=== PATIENT | male | born 1980 | race African-American/Black ===

== ENCOUNTER 2018-05-12 19:00 | Inpatient (IN) ==
[2018-05-12] MEDS ORDERED: HYDROmorphone 2 MG/1 ML VIAL IV ONE (20:44)
[2018-05-12] MEDS ORDERED: PROMETHAZINE 25 MG/1 ML VIAL IM PRN (20:48)
[2018-05-12] MEDS ORDERED: ZALEPLON 5 MG CAPSULE PO PRN (20:48)
[2018-05-12] MEDS ORDERED: FAMOTIDINE 20 MG TABLET PO SCH (21:00)
[2018-05-12] MEDS: CARVEDILOL 25 MG TABLET PO SCH (21:23)
[2018-05-12] MEDS: MINOXIDIL 2.5 MG TABLET PO SCH (21:23)
[2018-05-12] MEDS: FAMOTIDINE 20 MG TABLET PO SCH (21:23)
[2018-05-12] MEDS: ENOXAPARIN 30 MG/0.3 ML SYRINGE SUBCUT SCH (21:23)
[2018-05-12 21:27] LABS: Eosinophils # 0.2 10*3/uL (0.0-0.87); Eosinophils % 4.8 % (0.00-10.9); Hematocrit 40.2 VOL% (42.0-52.0); Hemoglobin 12.4 GM/DL (14.0-18.0); Immature Granulocytes % 0.3 %; Immature Granulocytes Absolute 0.01 #; Lymphocytes # 1.8 10*3/uL (1.4-4.0); Lymphocytes % 45.1 % (21.2-54.2); Mean Corpuscular HGB Conc 30.8 GM/DL (32-36); Mean Corpuscular Hemoglobin 26 PG (27-34); Mean Corpuscular Volume 84.3 FL (87-102); Mean Platelet Volume 11.6 FL (9.6-12.0); Monocytes # 0.4 10*3/uL (0.11-0.8); Monocytes % 9.8 % (1.7-12.7); Neutrophils # 1.6 10*3/uL (1.4-7.4); Platelet Count 94 T/CUMM (130-400); Red Blood Count 4.77 MC/CUMM (3.8-5.5); Red Cell Distribution Width 17.2 % (9.3-17.3)
[2018-05-12 21:42] LABS: Calcium 8.1 MG/DL (8.5-10.1); Osmolality,Calculated 282.5 MOS/KG (273-304); Potassium 4.6 MMOL/L (3.5-5.1)
[2018-05-12 21:53] LABS: INR 1.2; PT Patient Result 12.1 SECS; Partial Thromboplastin Time 28.3 SECS (0-40)
[2018-05-12] MEDS ORDERED: diphenhydrAMINE 50 MG/1 ML VIAL ONE (23:10)
[2018-05-12] MEDS: diphenhydrAMINE 50 MG/1 ML VIAL IV PRN (23:10)
[2018-05-12 23:28] LABS: Band Neutrophils 1 % (0-10); Eosinophils 5 % (0-10); Lymphocytes 49 % (20-55); Platelet Estimate Decreased; Segmented Neutrophils 42 % (50-85); Total Cells Counted 100
[2018-05-13] MEDS: MORPHINE 4 MG/1 ML VIAL IV PRN ×4 (02:12→23:37)
[2018-05-13] MEDS ORDERED: HYDROmorphone 2 MG/1 ML VIAL IV ONE (06:53)
[2018-05-13] MEDS: CARVEDILOL 25 MG TABLET PO SCH ×2 (08:41→20:08)
[2018-05-13] MEDS: MINOXIDIL 2.5 MG TABLET PO SCH ×2 (08:41→20:08)
[2018-05-13] MEDS: diphenhydrAMINE 50 MG/1 ML VIAL IV PRN ×2 (09:29→15:21)
[2018-05-13] MEDS: hydrALAZINE 20 MG/1 ML VIAL IV PRN ×2 (16:31→23:39)
[2018-05-13 17:11] LABS: Lymphocytes,Pleural Fluid 33 %; Monocytes,Pleural Fluid 2 %
[2018-05-13 17:13] LABS: RBC,Pleural Fluid 4994 T/CUMM
[2018-05-13] MEDS: ENOXAPARIN 30 MG/0.3 ML SYRINGE SUBCUT SCH ×2 (20:07→20:10)
[2018-05-13] MEDS: FAMOTIDINE 20 MG TABLET PO SCH (20:08)
[2018-05-14] MEDS: MORPHINE 4 MG/1 ML VIAL IV PRN ×4 (04:47→22:06)
[2018-05-14 06:16] LABS: Basophils # 0.1 10*3/uL (0.0-0.2); Basophils % 1.1 % (0.0-0.8); Eosinophils # 0.3 10*3/uL (0.0-0.87); Eosinophils % 5.8 % (0.00-10.9); Hematocrit 35.3 VOL% (42.0-52.0); Immature Granulocytes % 0.2 %; Immature Granulocytes Absolute 0.01 #; Lymphocytes # 1.2 10*3/uL (1.4-4.0); Lymphocytes % 26.3 % (21.2-54.2); Mean Corpuscular HGB Conc 31.2 GM/DL (32-36); Mean Corpuscular Hemoglobin 26 PG (27-34); Mean Corpuscular Volume 83.1 FL (87-102); Mean Platelet Volume 10.8 FL (9.6-12.0); Monocytes # 0.7 10*3/uL (0.11-0.8); Monocytes % 15.6 % (1.7-12.7); Neutrophils # 2.4 10*3/uL (1.4-7.4); Red Blood Count 4.25 MC/CUMM (3.8-5.5); Red Cell Distribution Width 17.2 % (9.3-17.3); White Blood Count 4.6 T/CUMM (4-12)
[2018-05-14 06:17] LABS: Platelet Count 85 T/CUMM (130-400)
[2018-05-14 06:44] LABS: Calcium 8.2 MG/DL (8.5-10.1); Osmolality,Calculated 283.5 MOS/KG (273-304); Potassium 4.4 MMOL/L (3.5-5.1)
[2018-05-14 06:45] LABS: Anisocytosis 1+; Band Neutrophils 3 % (0-10); Eosinophils 7 % (0-10); Lymphocytes 26 % (20-55); Platelet Estimate Decreased; Segmented Neutrophils 51 % (50-85); Total Cells Counted 100
[2018-05-14] MEDS: CARVEDILOL 25 MG TABLET PO SCH ×2 (09:00→22:06)
[2018-05-14] MEDS: MINOXIDIL 2.5 MG TABLET PO SCH ×2 (09:00→22:06)
[2018-05-14 14:14] LABS: Total Protein,Body Fluid 3.3 G/DL
[2018-05-14] MEDS: FAMOTIDINE 20 MG/2 ML VIAL IV SCH (16:20)
[2018-05-15] MEDS: MORPHINE 4 MG/1 ML VIAL IV PRN ×3 (04:09→22:23)
[2018-05-15 06:43] LABS: Albumin 2.9 G/DL (3.4-5.0); Bilirubin,Direct 0.21 MG/DL (0.0-0.20); Bilirubin,Indirect 0.5 MG/DL (0.0-1.0); Bilirubin,Total 0.7 MG/DL (0.2-1.0); Total Protein 6.2 G/DL (6.4-8.3)
[2018-05-15] MEDS: MINOXIDIL 2.5 MG TABLET PO SCH ×2 (08:20→20:51)
[2018-05-15] MEDS: CARVEDILOL 25 MG TABLET PO SCH ×2 (08:20→20:51)
[2018-05-15] MEDS: FAMOTIDINE 20 MG/2 ML VIAL IV SCH (08:20)
[2018-05-15] MEDS ORDERED: NITROGLYCERIN SL 0.4 MG TABLET SL PRN (08:37)
[2018-05-15] MEDS: ASPIRIN EC 81 MG TABLET PO SCH (08:47)
[2018-05-15 08:58] LABS: Risk Ratio 3.09; VLDL CHOLESTEROL 16.2 MG/DL
[2018-05-15] MEDS ORDERED: PROPOFOL 200 MG/20 ML VIAL IV ONE (09:00)
[2018-05-15] MEDS ORDERED: LIDOCAINE 100 MG/5 ML SYRINGE ONE (09:00)
[2018-05-15] MEDS: FLUCONAZOLE 100 MG TABLET PO SCH (16:55)
[2018-05-16] MEDS: MORPHINE 4 MG/1 ML VIAL IV PRN ×2 (02:14→09:11)
[2018-05-16 06:50] LABS: Eosinophils # 0.3 10*3/uL (0.0-0.87); Eosinophils % 6.9 % (0.00-10.9); Hematocrit 31.8 VOL% (42.0-52.0); Hemoglobin 10.1 GM/DL (14.0-18.0); Immature Granulocytes % 0.3 %; Immature Granulocytes Absolute 0.01 #; Lymphocytes % 25.9 % (21.2-54.2); Mean Corpuscular HGB Conc 31.8 GM/DL (32-36); Mean Corpuscular Hemoglobin 26 PG (27-34); Mean Corpuscular Volume 82.2 FL (87-102); Mean Platelet Volume 10.8 FL (9.6-12.0); Monocytes # 0.6 10*3/uL (0.11-0.8); Monocytes % 15.4 % (1.7-12.7); Neutrophils % 50.5 % (38.7-73.9); Red Blood Count 3.87 MC/CUMM (3.8-5.5); Red Cell Distribution Width 16.8 % (9.3-17.3); White Blood Count 3.9 T/CUMM (4-12)
[2018-05-16 06:54] LABS: Platelet Count 88 T/CUMM (130-400)
[2018-05-16 07:12] LABS: Calcium 8.1 MG/DL (8.5-10.1); Osmolality,Calculated 285.5 MOS/KG (273-304); Potassium 4.7 MMOL/L (3.5-5.1)
[2018-05-16] MEDS ORDERED: BISACODYL 5 MG TABLET PO ONE (07:34)
[2018-05-16] MEDS ORDERED: LACTULOSE 20 GM/30 ML UDCUP PO ONE (07:34)
[2018-05-16 07:46] LABS: Hypochromasia 1+; Ovalocytes Slight; Platelet Estimate Decreased
[2018-05-16] MEDS: ASPIRIN EC 81 MG TABLET PO SCH (08:33)
[2018-05-16] MEDS: CARVEDILOL 25 MG TABLET PO SCH (08:33)
[2018-05-16] MEDS: MINOXIDIL 2.5 MG TABLET PO SCH (08:33)
[2018-05-16] MEDS: FLUCONAZOLE 100 MG TABLET PO SCH (08:33)
[2018-05-16] MEDS: FAMOTIDINE 20 MG/2 ML VIAL IV SCH (08:36)
[2018-05-16] MEDS ORDERED: DOCUSATE SODIUM 100 MG CAPSULE PO SCH (09:00)
[2018-05-16 12:51] VITALS: BP 150/94
== END 2018-05-16 12:48 | disposition home health service (06) | DRG 291 ==
LOC: SUATTDRO 19:57 → N.ICU 19:57 → N.5E 05-14 02:12
PROVIDERS: ADMIT Internal Medicine Nephrology; ATTEND Internal Medicine

== ENCOUNTER 2019-04-20 00:57 | Observation (INO) ==
[2019-04-20] MEDS ORDERED: MORPHINE 4 MG/1 ML VIAL IV STA (01:37)
[2019-04-20 01:45] LABS: Basophils % 0.9 % (0.0-0.8); Eosinophils # 0.1 10*3/uL (0.0-0.87); Eosinophils % 1.9 % (0.00-10.9); Hematocrit 33.3 VOL% (42.0-52.0); Hemoglobin 10.1 GM/DL (14.0-18.0); Immature Granulocytes % 0.2 %; Immature Granulocytes Absolute 0.01 #; Lymphocytes # 1.4 10*3/uL (1.4-4.0); Lymphocytes % 33.6 % (21.2-54.2); Mean Corpuscular HGB Conc 30.3 GM/DL (32-36); Mean Corpuscular Volume 87.4 FL (87-102); Mean Platelet Volume 9.6 FL (9.6-12.0); Monocytes % 14.2 % (1.7-12.7); Neutrophils % 49.2 % (38.7-73.9); Platelet Count 115 T/CUMM (130-400); Red Blood Count 3.81 MC/CUMM (3.8-5.5); Red Cell Distribution Width 19.2 % (9.3-17.3); White Blood Count 4.2 T/CUMM (4-12)
[2019-04-20 02:04] LABS: Albumin 3.3 G/DL (3.4-5.0); Bilirubin,Total 0.6 MG/DL (0.2-1.0); Calcium 8.3 MG/DL (8.5-10.1); Osmolality,Calculated 278.7 MOS/KG (273-304); Total Protein 7.2 G/DL (6.4-8.3)
[2019-04-20] MEDS ORDERED: hydrALAZINE 20 MG/1 ML VIAL IV STA (02:50)
[2019-04-20] MEDS ORDERED: ONDANSETRON 4 MG/2 ML VIAL ONE (03:02)
[2019-04-20] MEDS ORDERED: PROMETHAZINE 25 MG/1 ML VIAL IM STA (03:04)
[2019-04-20] MEDS ORDERED: DOCUSATE SODIUM 100 MG CAPSULE PO PRN (05:38)
[2019-04-20] MEDS: NITROGLYCERIN SL 0.4 MG TABLET SL PRN ×3 (06:18→06:35)
[2019-04-20] MEDS: HEPARIN 5,000 UNIT/1 ML VIAL SUBCUT SCH ×2 (06:20→14:13)
[2019-04-20] MEDS: MORPHINE 4 MG/1 ML VIAL IV PRN ×3 (06:43→21:09)
[2019-04-20] MEDS: ASPIRIN EC 81 MG TABLET PO SCH (08:47)
[2019-04-20] MEDS: ISOSORBIDE MONONITRATE 30 MG TABLET PO SCH (08:47)
[2019-04-20] MEDS: CARVEDILOL 25 MG TABLET PO SCH ×2 (08:47→22:35)
[2019-04-20] MEDS: PROMETHAZINE 25 MG/1 ML VIAL IM PRN (21:10)
[2019-04-20] MEDS: ROSUVASTATIN 10 MG TABLET PO SCH (22:36)
[2019-04-21] MEDS: HEPARIN 5,000 UNIT/1 ML VIAL SUBCUT SCH ×4 (01:18→21:24)
[2019-04-21 03:52] LABS: Eosinophils # 0.1 10*3/uL (0.0-0.87); Eosinophils % 3.3 % (0.00-10.9); Hemoglobin 10.5 GM/DL (14.0-18.0); Immature Granulocytes % 0.2 %; Immature Granulocytes Absolute 0.01 #; Lymphocytes # 1.3 10*3/uL (1.4-4.0); Lymphocytes % 30.5 % (21.2-54.2); Mean Corpuscular HGB Conc 30.9 GM/DL (32-36); Mean Corpuscular Volume 87.2 FL (87-102); Mean Platelet Volume 10.2 FL (9.6-12.0); Monocytes % 17.9 % (1.7-12.7); Neutrophils % 47.1 % (38.7-73.9); Platelet Count 129 T/CUMM (130-400); Red Cell Distribution Width 19.2 % (9.3-17.3); White Blood Count 4.2 T/CUMM (4-12)
[2019-04-21 04:19] LABS: Calcium 7.7 MG/DL (8.5-10.1); Osmolality,Calculated 283.5 MOS/KG (273-304); Risk Ratio 4.09; VLDL CHOLESTEROL 27.4 MG/DL
[2019-04-21 04:33] LABS: Band Neutrophils 1 % (0-10); Eosinophils 5 % (0-10); Lymphocytes 27 % (20-55); Platelet Estimate Decreased; Segmented Neutrophils 51 % (50-85); Total Cells Counted 100
[2019-04-21] MEDS: ASPIRIN EC 81 MG TABLET PO SCH (08:06)
[2019-04-21] MEDS: CARVEDILOL 25 MG TABLET PO SCH ×2 (08:06→20:25)
[2019-04-21] MEDS: ISOSORBIDE MONONITRATE 30 MG TABLET PO SCH (08:06)
[2019-04-21] MEDS: MORPHINE 4 MG/1 ML VIAL IV PRN ×2 (11:33→20:24)
[2019-04-21] MEDS: ROSUVASTATIN 10 MG TABLET PO SCH (20:25)
[2019-04-21] MEDS: PROMETHAZINE 25 MG/1 ML VIAL IM PRN (22:56)
[2019-04-22] MEDS ORDERED: SODIUM CHLORIDE 0.9% 250 ML IV SCH (08:00)
[2019-04-22] MEDS: HEPARIN 5,000 UNIT/1 ML VIAL SUBCUT SCH ×3 (08:40→21:10)
[2019-04-22] MEDS: ASPIRIN EC 81 MG TABLET PO SCH (13:20)
[2019-04-22] MEDS: ISOSORBIDE MONONITRATE 30 MG TABLET PO SCH (13:20)
[2019-04-22] MEDS: CARVEDILOL 25 MG TABLET PO SCH ×2 (13:20→21:10)
[2019-04-22] MEDS ORDERED: FAMOTIDINE 20 MG TABLET PO SCH (16:00)
[2019-04-22] MEDS: MORPHINE 4 MG/1 ML VIAL IV PRN (18:42)
[2019-04-22] MEDS: PROMETHAZINE 25 MG/1 ML VIAL IM PRN (19:54)
[2019-04-22] MEDS: ROSUVASTATIN 10 MG TABLET PO SCH (21:10)
[2019-04-22] MEDS ORDERED: CLORAZEPATE 3.75 MG TABLET PO ONE (22:00)
[2019-04-22] MEDS ORDERED: diphenhydrAMINE CAP 25 MG CAPSULE PO PRN (23:02)
[2019-04-23] MEDS: HEPARIN 5,000 UNIT/1 ML VIAL SUBCUT SCH ×2 (05:14→14:29)
[2019-04-23 05:30] LABS: Basophils % 0.9 % (0.0-0.8); Eosinophils # 0.2 10*3/uL (0.0-0.87); Eosinophils % 4.5 % (0.00-10.9); Hematocrit 33.8 VOL% (42.0-52.0); Hemoglobin 10.2 GM/DL (14.0-18.0); Immature Granulocytes % 0.3 %; Immature Granulocytes Absolute 0.01 #; Lymphocytes # 1.1 10*3/uL (1.4-4.0); Lymphocytes % 34.3 % (21.2-54.2); Mean Corpuscular HGB Conc 30.2 GM/DL (32-36); Mean Corpuscular Volume 87.6 FL (87-102); Mean Platelet Volume 9.7 FL (9.6-12.0); Platelet Count 119 T/CUMM (130-400); Red Blood Count 3.86 MC/CUMM (3.8-5.5); Red Cell Distribution Width 18.6 % (9.3-17.3); White Blood Count 3.3 T/CUMM (4-12)
[2019-04-23 05:59] LABS: Calcium 8.1 MG/DL (8.5-10.1); Osmolality,Calculated 284.4 MOS/KG (273-304)
[2019-04-23 06:03] LABS: Band Neutrophils 3 % (0-10); Eosinophils 8 % (0-10); Lymphocytes 21 % (20-55); Platelet Estimate Adequate; Segmented Neutrophils 54 % (50-85); Total Cells Counted 100
[2019-04-23 06:04] LABS: Anisocytosis 1+; Macrocytosis Slight; Smudge Cells Few
[2019-04-23] MEDS ORDERED: FAMOTIDINE 20 MG TABLET PO SCH (09:00)
[2019-04-23] MEDS: ISOSORBIDE MONONITRATE 30 MG TABLET PO SCH (13:32)
[2019-04-23] MEDS: CARVEDILOL 25 MG TABLET PO SCH (13:32)
[2019-04-23] MEDS: ASPIRIN EC 81 MG TABLET PO SCH (13:33)
[2019-04-23 15:42] VITALS: BP 124/78
== END 2019-04-23 16:16 | disposition home or self-care (01) ==
LOC: EDUNIT# → EDBD → N.EDINP 00:57 → N.ED 00:57 → SUATTDRO 04:11 → N.TELEN 05:00
PROVIDERS: ADMIT Internal Medicine Nephrology; ATTEND Internal Medicine

== ENCOUNTER 2019-05-10 11:02 | Inpatient (IN) ==
[2019-05-10] MEDS ORDERED: ASPIRIN 325 MG TABLET PO STA (11:28)
[2019-05-10 11:58] LABS: Basophils # 0.1 10*3/uL (0.0-0.2); Basophils % 1.6 % (0.0-0.8); Eosinophils # 0.2 10*3/uL (0.0-0.87); Eosinophils % 4.7 % (0.00-10.9); Hematocrit 40.9 VOL% (42.0-52.0); Hemoglobin 12.5 GM/DL (14.0-18.0); Immature Granulocytes % 0.2 %; Immature Granulocytes Absolute 0.01 #; Lymphocytes # 1.5 10*3/uL (1.4-4.0); Lymphocytes % 34.2 % (21.2-54.2); Mean Corpuscular HGB Conc 30.6 GM/DL (32-36); Mean Corpuscular Volume 86.3 FL (87-102); Mean Platelet Volume 10.1 FL (9.6-12.0); Monocytes % 11.5 % (1.7-12.7); Neutrophils % 47.8 % (38.7-73.9); Platelet Count 128 T/CUMM (130-400); Red Blood Count 4.74 MC/CUMM (3.8-5.5); Red Cell Distribution Width 18.5 % (9.3-17.3); White Blood Count 4.3 T/CUMM (4-12)
[2019-05-10 12:05] LABS: Calcium 8.9 MG/DL (8.5-10.1); Osmolality,Calculated 282.5 MOS/KG (273-304)
[2019-05-10] MEDS: NITROGLYCERIN SL 0.4 MG TABLET SL PRN (12:17)
[2019-05-10] MEDS ORDERED: MORPHINE 4 MG/1 ML VIAL IV STA (12:34)
[2019-05-10] MEDS: ENOXAPARIN 30 MG/0.3 ML SYRINGE SUBCUT SCH (14:48)
[2019-05-10] MEDS: MORPHINE 4 MG/1 ML VIAL IV PRN ×2 (14:57→21:05)
[2019-05-10] MEDS: CARVEDILOL 25 MG TABLET PO SCH (21:04)
[2019-05-10] MEDS: ROSUVASTATIN 10 MG TABLET PO SCH (21:04)
[2019-05-10] MEDS: CALCIUM CARBONATE CHEW 500 MG TABLET PO SCH (21:05)
[2019-05-10] MEDS ORDERED: PROMETHAZINE 25 MG TABLET PO PRN (22:42)
[2019-05-11] MEDS: MORPHINE 4 MG/1 ML VIAL IV PRN ×4 (04:15→19:23)
[2019-05-11 04:51] LABS: Basophils # 0.1 10*3/uL (0.0-0.2); Basophils % 1.7 % (0.0-0.8); Eosinophils # 0.2 10*3/uL (0.0-0.87); Eosinophils % 3.6 % (0.00-10.9); Hematocrit 33.4 VOL% (42.0-52.0); Immature Granulocytes % 0.5 %; Immature Granulocytes Absolute 0.02 #; Lymphocytes # 1.4 10*3/uL (1.4-4.0); Mean Corpuscular HGB Conc 29.9 GM/DL (32-36); Mean Corpuscular Volume 87.2 FL (87-102); Mean Platelet Volume 9.8 FL (9.6-12.0); Monocytes % 17.7 % (1.7-12.7); Neutrophils % 43.5 % (38.7-73.9); Platelet Count 104 T/CUMM (130-400); Red Blood Count 3.83 MC/CUMM (3.8-5.5); Red Cell Distribution Width 18.3 % (9.3-17.3); White Blood Count 4.1 T/CUMM (4-12)
[2019-05-11 05:15] LABS: Eosinophils 7 % (0-10); Hypochromasia 1+; Lymphocytes 43 % (20-55); Ovalocytes Slight; Platelet Estimate Decreased; Segmented Neutrophils 39 % (50-85); Total Cells Counted 100
[2019-05-11 05:22] LABS: Calcium 8.9 MG/DL (8.5-10.1); Osmolality,Calculated 287.4 MOS/KG (273-304)
[2019-05-11] MEDS ORDERED: REGADENOSON 0.4 MG/5 ML SYRINGE IV ONE (08:17)
[2019-05-11] MEDS: NITROGLYCERIN SL 0.4 MG TABLET SL PRN (09:15)
[2019-05-11 10:46] LABS: Lymphocytes,Pleural Fluid 95 %; Monocytes,Pleural Fluid 4 %; Neutrophils,Pleural Fluid 1 %; RBC,Pleural Fluid 20368 T/CUMM
[2019-05-11 10:57] LABS: Total Protein,Pleural Fluid 4.2 G/DL
[2019-05-11 11:00] LABS: Hepatitis B Core IgM Quant 0.06 Index; Hepatitis B Surface Ag Quant < 0.10 Index; Hepatitis B Surface Ag Result Negative (Negative); Hepatitis C Virus Ab Quant < 0.02 Index; Hepatitis C Virus Ab Result Negative (Negative)
[2019-05-11 11:59] LABS: Troponin I 0.888 NG/ML (0.00-0.045)
[2019-05-11] MEDS ORDERED: VANCOMYCIN 500 MG VIAL IRRIG ONE (13:08)
[2019-05-11] MEDS ORDERED: VANCOMYCIN INJ 1,000 MG in SODIUM CHLORIDE 0.9% 250 ML IV ONE (13:08)
[2019-05-11] MEDS: MULTIVITAMIN (BEROCCA) TABLET PO SCH (13:19)
[2019-05-11] MEDS: CARVEDILOL 25 MG TABLET PO SCH ×2 (13:19→21:01)
[2019-05-11] MEDS: ENOXAPARIN 30 MG/0.3 ML SYRINGE SUBCUT SCH (13:19)
[2019-05-11] MEDS: ASPIRIN EC 81 MG TABLET PO SCH (13:19)
[2019-05-11] MEDS: ISOSORBIDE MONONITRATE 30 MG TABLET PO SCH (13:19)
[2019-05-11 14:51] LABS: Troponin I 0.943 NG/ML (0.00-0.045)
[2019-05-11 17:18] LABS: Troponin I 0.817 NG/ML (0.00-0.045)
[2019-05-11] MEDS: ROSUVASTATIN 10 MG TABLET PO SCH (21:01)
[2019-05-12] MEDS: MORPHINE 4 MG/1 ML VIAL IV PRN ×3 (02:00→20:55)
[2019-05-12] MEDS: CALCIUM CARBONATE CHEW 500 MG TABLET PO SCH ×2 (02:19→20:48)
[2019-05-12 06:07] LABS: Basophils % 1.2 % (0.0-0.8); Eosinophils # 0.1 10*3/uL (0.0-0.87); Eosinophils % 2.9 % (0.00-10.9); Hematocrit 31.4 VOL% (42.0-52.0); Hemoglobin 9.5 GM/DL (14.0-18.0); Immature Granulocytes % 0.3 %; Immature Granulocytes Absolute 0.01 #; Lymphocytes # 1.2 10*3/uL (1.4-4.0); Lymphocytes % 34.6 % (21.2-54.2); Mean Corpuscular HGB Conc 30.3 GM/DL (32-36); Mean Platelet Volume 9.6 FL (9.6-12.0); Monocytes % 11.8 % (1.7-12.7); Neutrophils % 49.2 % (38.7-73.9); Platelet Count 91 T/CUMM (130-400); Red Blood Count 3.61 MC/CUMM (3.8-5.5); Red Cell Distribution Width 18.5 % (9.3-17.3); White Blood Count 3.5 T/CUMM (4-12)
[2019-05-12 06:36] LABS: Hypochromasia 1+; Ovalocytes Slight; Platelet Estimate Decreased
[2019-05-12 06:41] LABS: Calcium 7.8 MG/DL (8.5-10.1); Osmolality,Calculated 292.3 MOS/KG (273-304)
[2019-05-12] MEDS ORDERED: VANCOMYCIN 500 MG VIAL ONE (07:13)
[2019-05-12] MEDS ORDERED: LIDOCAINE 1% 20 ML VIAL ONE (07:13)
[2019-05-12] MEDS ORDERED: HEPARIN/NACL 0.9% 2 UNITS/ML 500 ML IV ONE (07:13)
[2019-05-12] MEDS ORDERED: FAMOTIDINE 20 MG/2 ML VIAL IV ONE ×2 (07:15→07:17)
[2019-05-12] MEDS ORDERED: diphenhydrAMINE 50 MG/1 ML VIAL ONE ×2 (07:15→10:20)
[2019-05-12] MEDS ORDERED: diphenhydrAMINE 50 MG/1 ML VIAL IV ONE (07:15)
[2019-05-12] MEDS ORDERED: methylPREDNISolone SOD SUC 125 MG/2 ML VIAL IV ONE (07:15)
[2019-05-12] MEDS ORDERED: methylPREDNISolone SOD SUC 125 MG/2 ML VIAL ONE ×2 (07:15→10:20)
[2019-05-12] MEDS ORDERED: TISSUE ADHESIVE 1 EACH APPLICATOR TOP ONE (08:50)
[2019-05-12] MEDS ORDERED: PROPOFOL 200 MG/20 ML VIAL IV ONE (12:41)
[2019-05-12] MEDS ORDERED: SEVOFLURANE 1 UNIT/15 MINUTE INH ONE (12:41)
[2019-05-12] MEDS ORDERED: fentaNYL 100 MCG/2 ML VIAL ONE (12:41)
[2019-05-12] MEDS ORDERED: PROMETHAZINE 25 MG/1 ML VIAL ONE (12:41)
[2019-05-12] MEDS ORDERED: MIDAZOLAM 2 MG/2 ML VIAL ONE (12:41)
[2019-05-12] MEDS ORDERED: PHENYLEPHRINE DRIP 20 MG/250 ML PREMIX IV ONE (12:41)
[2019-05-12] MEDS ORDERED: ePHEDrine 50 MG/ML AMP ONE (12:42)
[2019-05-12] MEDS ORDERED: KETOROLAC 30 MG/1 ML VIAL ONE (12:42)
[2019-05-12] MEDS: CARVEDILOL 25 MG TABLET PO SCH ×2 (13:06→20:48)
[2019-05-12] MEDS: MULTIVITAMIN (BEROCCA) TABLET PO SCH (13:06)
[2019-05-12] MEDS: ISOSORBIDE MONONITRATE 30 MG TABLET PO SCH (13:06)
[2019-05-12] MEDS: ASPIRIN EC 81 MG TABLET PO SCH (13:06)
[2019-05-12] MEDS: ENOXAPARIN 30 MG/0.3 ML SYRINGE SUBCUT SCH (13:49)
[2019-05-12] MEDS: ROSUVASTATIN 10 MG TABLET PO SCH (20:48)
[2019-05-12] MEDS ORDERED: VANCOMYCIN INJ 1,000 MG in SODIUM CHLORIDE 0.9% 250 ML IV ONE (21:35)
[2019-05-13] MEDS: MORPHINE 4 MG/1 ML VIAL IV PRN ×2 (03:29→08:51)
[2019-05-13 05:51] LABS: Hematocrit 29.6 VOL% (42.0-52.0); Hemoglobin 9.3 GM/DL (14.0-18.0); Immature Granulocytes % 0.5 %; Immature Granulocytes Absolute 0.03 #; Lymphocytes # 0.8 10*3/uL (1.4-4.0); Lymphocytes % 14.4 % (21.2-54.2); Mean Corpuscular HGB Conc 31.4 GM/DL (32-36); Mean Corpuscular Volume 86.8 FL (87-102); Mean Platelet Volume 10.7 FL (9.6-12.0); Monocytes % 16.2 % (1.7-12.7); Neutrophils % 68.9 % (38.7-73.9); Platelet Count 96 T/CUMM (130-400); Red Blood Count 3.41 MC/CUMM (3.8-5.5); Red Cell Distribution Width 18.5 % (9.3-17.3); White Blood Count 5.5 T/CUMM (4-12)
[2019-05-13 06:16] LABS: Band Neutrophils 4 % (0-10); Eosinophils 1 % (0-10); Hypochromasia 1+; Lymphocytes 12 % (20-55); Ovalocytes Slight; Platelet Estimate Decreased; Segmented Neutrophils 73 % (50-85); Total Cells Counted 100
[2019-05-13 06:27] LABS: Calcium 8.2 MG/DL (8.5-10.1); Osmolality,Calculated 286.4 MOS/KG (273-304)
[2019-05-13] MEDS: ISOSORBIDE MONONITRATE 30 MG TABLET PO SCH (08:15)
[2019-05-13] MEDS: ASPIRIN EC 81 MG TABLET PO SCH (08:15)
[2019-05-13] MEDS: MULTIVITAMIN (BEROCCA) TABLET PO SCH (08:15)
[2019-05-13] MEDS: CARVEDILOL 25 MG TABLET PO SCH ×2 (08:15→20:50)
[2019-05-13] MEDS: oxyCODONE/ACETAMINOPHEN 5-325 MG TABLET PO PRN ×2 (14:17→20:51)
[2019-05-13] MEDS: CLINDAMYCIN 300 MG CAPSULE PO SCH ×2 (14:17→22:36)
[2019-05-13] MEDS: CALCIUM CARBONATE CHEW 500 MG TABLET PO SCH (20:50)
[2019-05-13] MEDS: ROSUVASTATIN 10 MG TABLET PO SCH (20:51)
[2019-05-14] MEDS: oxyCODONE/ACETAMINOPHEN 5-325 MG TABLET PO PRN ×2 (01:22→10:17)
[2019-05-14 04:58] LABS: Basophils % 0.9 % (0.0-0.8); Eosinophils % 0.2 % (0.00-10.9); Hematocrit 27.3 VOL% (42.0-52.0); Hemoglobin 8.6 GM/DL (14.0-18.0); Immature Granulocytes % 0.2 %; Immature Granulocytes Absolute 0.01 #; Lymphocytes # 1.4 10*3/uL (1.4-4.0); Lymphocytes % 29.5 % (21.2-54.2); Mean Corpuscular HGB Conc 31.5 GM/DL (32-36); Mean Corpuscular Volume 85.6 FL (87-102); Mean Platelet Volume 9.8 FL (9.6-12.0); Monocytes % 13.4 % (1.7-12.7); Neutrophils % 55.8 % (38.7-73.9); Red Blood Count 3.19 MC/CUMM (3.8-5.5); Red Cell Distribution Width 18.5 % (9.3-17.3); White Blood Count 4.6 T/CUMM (4-12)
[2019-05-14 05:01] LABS: Platelet Count 86 T/CUMM (130-400)
[2019-05-14 05:17] LABS: Calcium 7.9 MG/DL (8.5-10.1); Osmolality,Calculated 288.5 MOS/KG (273-304)
[2019-05-14 05:20] LABS: Hypochromasia 1+; Platelet Estimate Decreased
[2019-05-14] MEDS: CLINDAMYCIN 300 MG CAPSULE PO SCH ×2 (05:26→18:02)
[2019-05-14] MEDS ORDERED: EPOETIN ALFA 2,000 UNIT/1 ML VIAL IV PRN (09:22)
[2019-05-14] MEDS: MULTIVITAMIN (BEROCCA) TABLET PO SCH (10:17)
[2019-05-14 16:01] VITALS: BP 172/103
[2019-05-14] MEDS: ISOSORBIDE MONONITRATE 30 MG TABLET PO SCH (18:02)
[2019-05-14] MEDS: CARVEDILOL 25 MG TABLET PO SCH (18:02)
== END 2019-05-14 19:53 | disposition home or self-care (01) | DRG 226 ==
LOC: EDBD → EDUNIT# → N.ED 11:02 → N.EDINP 11:02 → N.TELEN 18:15
PROVIDERS: ADMIT Internal Medicine Geriatric Medicine; ATTEND Internal Medicine Geriatric Medicine
PROC: CLDCICD (2019-05-12 07:15)

== ENCOUNTER 2019-05-16 12:07 | Inpatient (IN) ==
[2019-05-16 13:08] LABS: Basophils % 0.7 % (0.0-0.8); Eosinophils # 0.7 10*3/uL (0.0-0.87); Eosinophils % 11.6 % (0.00-10.9); Hematocrit 27.6 VOL% (42.0-52.0); Hemoglobin 8.3 GM/DL (14.0-18.0); Immature Granulocytes % 0.4 %; Immature Granulocytes Absolute 0.02 #; Lymphocytes # 1.3 10*3/uL (1.4-4.0); Lymphocytes % 23.2 % (21.2-54.2); Mean Corpuscular HGB Conc 30.1 GM/DL (32-36); Mean Corpuscular Volume 87.1 FL (87-102); Mean Platelet Volume 9.8 FL (9.6-12.0); Monocytes % 11.1 % (1.7-12.7); Red Blood Count 3.17 MC/CUMM (3.8-5.5); Red Cell Distribution Width 18.5 % (9.3-17.3); White Blood Count 5.7 T/CUMM (4-12)
[2019-05-16 13:10] LABS: Platelet Count 89 T/CUMM (130-400)
[2019-05-16] MEDS ORDERED: MAGNESIUM SULF RIDER 4 GM in PREMIX 1 EACH IV PRN (13:24)
[2019-05-16] MEDS ORDERED: MAGNESIUM SULF RIDER 2 GM in PREMIX 1 EACH IV PRN (13:24)
[2019-05-16 13:33] LABS: Anisocytosis 1+; Eosinophils 6 % (0-10); Hypochromasia 1+; Lymphocytes 23 % (20-55); Microcytosis 1+; Ovalocytes Slight; Segmented Neutrophils 59 % (50-85); Total Cells Counted 100
[2019-05-16 13:34] LABS: Platelet Estimate Decreased
[2019-05-16 13:49] LABS: Calcium 8.8 MG/DL (8.5-10.1); Osmolality,Calculated 286.5 MOS/KG (273-304)
[2019-05-16 14:08] LABS: INR 1.1; Partial Thromboplastin Time 29.6 SECS (0-40)
[2019-05-16] MEDS ORDERED: MORPHINE 4 MG/1 ML VIAL IV ONE (14:41)
[2019-05-16] MEDS: CLINDAMYCIN 300 MG CAPSULE PO SCH ×2 (15:10→20:26)
[2019-05-16] MEDS: SEVELAMER CARBONATE 800 MG TABLET PO SCH (16:39)
[2019-05-16] MEDS: CARVEDILOL 25 MG TABLET PO SCH (16:39)
[2019-05-16] MEDS ORDERED: VANCOMYCIN 500 MG VIAL IRRIG ONE (19:07)
[2019-05-16] MEDS ORDERED: VANCOMYCIN INJ 1,000 MG in SODIUM CHLORIDE 0.9% 250 ML IV ONE (19:07)
[2019-05-16] MEDS: CALCIUM (CARBONATE) 600 MG TABLET PO SCH (20:26)
[2019-05-16] MEDS: ROSUVASTATIN 10 MG TABLET PO SCH (20:26)
[2019-05-16] MEDS: oxyCODONE/ACETAMINOPHEN 5-325 MG TABLET PO PRN (20:28)
[2019-05-17] MEDS: MORPHINE 4 MG/1 ML VIAL IV PRN ×3 (01:11→18:46)
[2019-05-17] MEDS ORDERED: VANCOMYCIN INJ 1,000 MG in SODIUM CHLORIDE 0.9% 250 ML IV ONE ×2 (09:00→23:40)
[2019-05-17] MEDS ORDERED: VANCOMYCIN 500 MG VIAL IRRIG ONE (09:00)
[2019-05-17 09:50] LABS: Basophils % 0.8 % (0.0-0.8); Eosinophils # 0.3 10*3/uL (0.0-0.87); Eosinophils % 6.1 % (0.00-10.9); Hematocrit 29.2 VOL% (42.0-52.0); Hemoglobin 8.7 GM/DL (14.0-18.0); Immature Granulocytes % 0.4 %; Immature Granulocytes Absolute 0.02 #; Lymphocytes # 1.5 10*3/uL (1.4-4.0); Lymphocytes % 29.2 % (21.2-54.2); Mean Corpuscular HGB Conc 29.8 GM/DL (32-36); Mean Corpuscular Volume 87.4 FL (87-102); Mean Platelet Volume 9.7 FL (9.6-12.0); Neutrophils % 50.5 % (38.7-73.9); Red Blood Count 3.34 MC/CUMM (3.8-5.5); Red Cell Distribution Width 18.2 % (9.3-17.3); White Blood Count 5.2 T/CUMM (4-12)
[2019-05-17 09:51] LABS: Platelet Count 88 T/CUMM (130-400)
[2019-05-17] MEDS ORDERED: TISSUE ADHESIVE 1 EACH APPLICATOR TOP ONE (09:53)
[2019-05-17] MEDS ORDERED: LIDOCAINE 1%/EPI INJ 20 ML VIAL ONE (09:53)
[2019-05-17] MEDS ORDERED: VANCOMYCIN 500 MG VIAL ONE (09:56)
[2019-05-17] MEDS ORDERED: HEPARIN/NACL 0.9% 2 UNITS/ML 500 ML IV ONE (09:56)
[2019-05-17 10:04] LABS: INR 1.1; PT Patient Result 12.1 SECS; Partial Thromboplastin Time 30.5 SECS (0-40)
[2019-05-17 10:14] LABS: Hypochromasia 1+
[2019-05-17 10:15] LABS: Calcium 8.8 MG/DL (8.5-10.1); Osmolality,Calculated 285.8 MOS/KG (273-304)
[2019-05-17 10:16] LABS: Platelet Estimate Decreased
[2019-05-17 10:17] LABS: Microcytosis 1+
[2019-05-17] MEDS ORDERED: fentaNYL 100 MCG/2 ML VIAL ONE (10:58)
[2019-05-17] MEDS ORDERED: MIDAZOLAM 2 MG/2 ML VIAL ONE (10:58)
[2019-05-17] MEDS: CLINDAMYCIN 300 MG CAPSULE PO SCH (12:51)
[2019-05-17] MEDS: SEVELAMER CARBONATE 800 MG TABLET PO SCH ×4 (12:52→18:41)
[2019-05-17] MEDS: ISOSORBIDE MONONITRATE 30 MG TABLET PO SCH (12:52)
[2019-05-17] MEDS: CARVEDILOL 25 MG TABLET PO SCH ×2 (12:52→18:42)
[2019-05-17] MEDS: MULTIVITAMIN (BEROCCA) TABLET PO SCH (12:52)
[2019-05-17] MEDS ORDERED: PHENYLEPHRINE 1 MG/10 ML SYRINGE IV ONE (13:29)
[2019-05-17] MEDS ORDERED: ETOMIDATE 40 MG/20 ML VIAL IV ONE (13:29)
[2019-05-17] MEDS ORDERED: PROPOFOL 200 MG/20 ML VIAL IV ONE (13:29)
[2019-05-17] MEDS: oxyCODONE/ACETAMINOPHEN 5-325 MG TABLET PO PRN ×2 (14:14→22:02)
[2019-05-17] MEDS ORDERED: diphenhydrAMINE CAP 25 MG CAPSULE PO PRN (15:04)
[2019-05-17] MEDS ORDERED: MAGNESIUM HYDROXIDE SUSP 30 ML UDCUP PO PRN (15:05)
[2019-05-17 16:26] LABS: Hepatitis B Core IgM Quant 0.06 Index; Hepatitis B Surface Ag Quant < 0.10 Index; Hepatitis B Surface Ag Result Negative (Negative); Hepatitis C Virus Ab Quant < 0.02 Index; Hepatitis C Virus Ab Result Negative (Negative)
[2019-05-17] MEDS ORDERED: SULFAMETHOX/TRIMETHOPRIM 400-80 MG TABLET PO SCH (21:00)
[2019-05-17] MEDS: CALCIUM (CARBONATE) 600 MG TABLET PO SCH (21:58)
[2019-05-17] MEDS: ROSUVASTATIN 10 MG TABLET PO SCH (21:58)
[2019-05-18] MEDS: MORPHINE 4 MG/1 ML VIAL IV PRN ×4 (02:55→18:01)
[2019-05-18 07:41] LABS: Basophils % 0.4 % (0.0-0.8); Eosinophils # 0.3 10*3/uL (0.0-0.87); Eosinophils % 5.2 % (0.00-10.9); Hematocrit 25.8 VOL% (42.0-52.0); Hemoglobin 7.7 GM/DL (14.0-18.0); Immature Granulocytes % 0.4 %; Immature Granulocytes Absolute 0.02 #; Lymphocytes # 0.9 10*3/uL (1.4-4.0); Lymphocytes % 17.5 % (21.2-54.2); Mean Corpuscular HGB Conc 29.8 GM/DL (32-36); Mean Corpuscular Volume 87.8 FL (87-102); Mean Platelet Volume 10.2 FL (9.6-12.0); Monocytes % 18.3 % (1.7-12.7); Neutrophils % 58.2 % (38.7-73.9); Platelet Count 85 T/CUMM (130-400); Red Blood Count 2.94 MC/CUMM (3.8-5.5); Red Cell Distribution Width 17.8 % (9.3-17.3)
[2019-05-18 08:06] LABS: Calcium 8.4 MG/DL (8.5-10.1); Osmolality,Calculated 280.7 MOS/KG (273-304)
[2019-05-18] MEDS: SEVELAMER CARBONATE 800 MG TABLET PO SCH ×3 (08:51→17:12)
[2019-05-18] MEDS: ISOSORBIDE MONONITRATE 30 MG TABLET PO SCH (08:53)
[2019-05-18] MEDS: CARVEDILOL 25 MG TABLET PO SCH ×2 (08:53→16:02)
[2019-05-18] MEDS: MULTIVITAMIN (BEROCCA) TABLET PO SCH (08:53)
[2019-05-18 09:03] LABS: Band Neutrophils 1 % (0-10); Eosinophils 5 % (0-10); Hypochromasia 1+; Lymphocytes 27 % (20-55); Ovalocytes Slight; Platelet Estimate Decreased; Segmented Neutrophils 56 % (50-85); Total Cells Counted 100
[2019-05-18 09:04] LABS: Microcytosis 1+
[2019-05-18] MEDS: oxyCODONE/ACETAMINOPHEN 5-325 MG TABLET PO PRN ×2 (09:46→21:28)
[2019-05-18] MEDS: PROMETHAZINE 25 MG/1 ML VIAL IM PRN (11:11)
[2019-05-18] MEDS: ASCORBIC ACID 500 MG TABLET PO SCH (18:00)
[2019-05-18] MEDS ORDERED: SULFAMETHOX/TRIMETHOPRIM 400-80 MG TABLET PO SCH (21:00)
[2019-05-18] MEDS: ROSUVASTATIN 10 MG TABLET PO SCH (21:27)
[2019-05-18] MEDS: CALCIUM (CARBONATE) 600 MG TABLET PO SCH (21:27)
[2019-05-19] MEDS: PROMETHAZINE 25 MG/1 ML VIAL IM PRN ×3 (01:27→23:11)
[2019-05-19 06:30] LABS: Basophils % 0.5 % (0.0-0.8); Eosinophils # 0.3 10*3/uL (0.0-0.87); Eosinophils % 5.1 % (0.00-10.9); Hematocrit 24.5 VOL% (42.0-52.0); Hemoglobin 7.5 GM/DL (14.0-18.0); Immature Granulocytes % 0.4 %; Immature Granulocytes Absolute 0.02 #; Lymphocytes # 1.2 10*3/uL (1.4-4.0); Lymphocytes % 21.2 % (21.2-54.2); Mean Corpuscular HGB Conc 30.6 GM/DL (32-36); Mean Corpuscular Volume 86.3 FL (87-102); Mean Platelet Volume 10.4 FL (9.6-12.0); Monocytes % 18.6 % (1.7-12.7); Neutrophils % 54.2 % (38.7-73.9); Platelet Count 86 T/CUMM (130-400); Red Blood Count 2.84 MC/CUMM (3.8-5.5); Red Cell Distribution Width 17.8 % (9.3-17.3); White Blood Count 5.7 T/CUMM (4-12)
[2019-05-19 07:02] LABS: Eosinophils 6 % (0-10); Hypochromasia 1+; Lymphocytes 15 % (20-55); Platelet Estimate Decreased; Segmented Neutrophils 64 % (50-85); Total Cells Counted 100
[2019-05-19 07:03] LABS: Microcytosis 1+
[2019-05-19 07:04] LABS: Albumin 2.8 G/DL (3.4-5.0); Bilirubin,Total 0.7 MG/DL (0.2-1.0); Calcium 8.7 MG/DL (8.5-10.1); Osmolality,Calculated 282.8 MOS/KG (273-304); Total Protein 6.6 G/DL (6.4-8.3)
[2019-05-19] MEDS: oxyCODONE/ACETAMINOPHEN 5-325 MG TABLET PO PRN ×2 (08:23→15:04)
[2019-05-19] MEDS: CARVEDILOL 25 MG TABLET PO SCH ×2 (13:14→17:35)
[2019-05-19] MEDS: SEVELAMER CARBONATE 800 MG TABLET PO SCH ×3 (13:15→17:35)
[2019-05-19] MEDS: ISOSORBIDE MONONITRATE 30 MG TABLET PO SCH (13:31)
[2019-05-19] MEDS: MULTIVITAMIN (BEROCCA) TABLET PO SCH (13:31)
[2019-05-19] MEDS: ASCORBIC ACID 500 MG TABLET PO SCH (13:31)
[2019-05-19] MEDS: MORPHINE 4 MG/1 ML VIAL IV PRN (20:09)
[2019-05-19] MEDS: ROSUVASTATIN 10 MG TABLET PO SCH (20:09)
[2019-05-19] MEDS: CALCIUM (CARBONATE) 600 MG TABLET PO SCH (20:09)
[2019-05-20] MEDS: oxyCODONE/ACETAMINOPHEN 5-325 MG TABLET PO PRN (04:30)
[2019-05-20] MEDS: ISOSORBIDE MONONITRATE 30 MG TABLET PO SCH (08:08)
[2019-05-20] MEDS: MULTIVITAMIN (BEROCCA) TABLET PO SCH (08:08)
[2019-05-20] MEDS: CARVEDILOL 25 MG TABLET PO SCH (08:08)
[2019-05-20] MEDS: SEVELAMER CARBONATE 800 MG TABLET PO SCH ×2 (08:08→12:42)
[2019-05-20] MEDS: ASCORBIC ACID 500 MG TABLET PO SCH (08:08)
[2019-05-20] MEDS: MORPHINE 4 MG/1 ML VIAL IV PRN (08:15)
[2019-05-20] MEDS ORDERED: EPOETIN ALFA 10,000 UNIT/1 ML VIAL IV PRN (08:43)
[2019-05-20 11:51] VITALS: BP 121/70
== END 2019-05-20 12:55 | disposition home or self-care (01) | DRG 919 ==
LOC: N.ED 12:07 → N.TELEN 12:07
PROVIDERS: ADMIT Internal Medicine Clinical Cardiac Electrophysiology; ATTEND Internal Medicine Clinical Cardiac Electrophysiology

== ENCOUNTER 2019-05-30 22:08 | Inpatient (IN) ==
[2019-05-30] MEDS ORDERED: MORPHINE 4 MG/1 ML VIAL IV STA (22:27)
[2019-05-30] MEDS ORDERED: METOPROLOL TARTRATE 5 MG/5 ML VIAL IV STA (22:44)
[2019-05-30 23:03] LABS: Basophils # 0.1 10*3/uL (0.0-0.2); Basophils % 1.2 % (0.0-0.8); Eosinophils # 0.3 10*3/uL (0.0-0.87); Eosinophils % 5.1 % (0.00-10.9); Hematocrit 26.9 VOL% (42.0-52.0); Immature Granulocytes % 0.2 %; Immature Granulocytes Absolute 0.01 #; Lymphocytes # 1.6 10*3/uL (1.4-4.0); Lymphocytes % 31.7 % (21.2-54.2); Mean Corpuscular HGB Conc 29.7 GM/DL (32-36); Mean Platelet Volume 10.1 FL (9.6-12.0); Monocytes % 13.3 % (1.7-12.7); Neutrophils % 48.5 % (38.7-73.9); Platelet Count 142 T/CUMM (130-400); Red Blood Count 2.99 MC/CUMM (3.8-5.5); Red Cell Distribution Width 19.2 % (9.3-17.3); White Blood Count 4.9 T/CUMM (4-12)
[2019-05-30 23:12] LABS: INR 1.2; PT Patient Result 12.8 SECS (9.6-12.2)
[2019-05-30] MEDS ORDERED: NITROGLYCERIN DRIP 50 MG/250 ML BOTTLE IV ONE (23:28)
[2019-05-30] MEDS ORDERED: diphenhydrAMINE 50 MG/1 ML VIAL IV STA (23:34)
[2019-05-30] MEDS: NITROGLYCERIN DRIP 50 MG/250 ML BOTTLE IV SCH (23:35)
[2019-05-30 23:41] LABS: Albumin 3.3 G/DL (3.4-5.0); Bilirubin,Total 0.6 MG/DL (0.2-1.0); Calcium 9.3 MG/DL (8.5-10.1); Total Protein 7.4 G/DL (6.4-8.3)
[2019-05-31] MEDS ORDERED: ACETAMINOPHEN 500 MG TABLET ONE (01:28)
[2019-05-31] MEDS ORDERED: ACETAMINOPHEN 500 MG TABLET PO STA (01:33)
[2019-05-31] MEDS ORDERED: MORPHINE 4 MG/1 ML VIAL IV STA (02:03)
[2019-05-31] MEDS ORDERED: LORazepam 1 MG TABLET PO STA (02:04)
[2019-05-31] MEDS ORDERED: DOCUSATE SODIUM 100 MG CAPSULE PO PRN (03:43)
[2019-05-31] MEDS ORDERED: diphenhydrAMINE 50 MG/1 ML VIAL IV ONE (06:14)
[2019-05-31] MEDS: NITROGLYCERIN DRIP 50 MG/250 ML BOTTLE IV SCH ×5 (07:27→22:26)
[2019-05-31] MEDS ORDERED: SODIUM CHLORIDE 0.9% 1,000 ML IV PRN ×2 (08:15→09:50)
[2019-05-31] MEDS: SEVELAMER CARBONATE 800 MG TABLET PO SCH ×4 (08:43→20:26)
[2019-05-31] MEDS: MULTIVITAMIN (BEROCCA) TABLET PO SCH (08:43)
[2019-05-31] MEDS: ISOSORBIDE MONONITRATE 30 MG TABLET PO SCH (08:43)
[2019-05-31] MEDS: SULFAMETHOX/TRIMETHOPRIM 400-80 MG TABLET PO SCH (08:43)
[2019-05-31] MEDS: ASCORBIC ACID 500 MG TABLET PO SCH (08:43)
[2019-05-31] MEDS: oxyCODONE/ACETAMINOPHEN 5-325 MG TABLET PO PRN (08:43)
[2019-05-31] MEDS: CARVEDILOL 25 MG TABLET PO SCH ×2 (08:44→20:25)
[2019-05-31 09:02] LABS: Basophils % 0.7 % (0.0-0.8); Eosinophils # 0.3 10*3/uL (0.0-0.87); Eosinophils % 4.8 % (0.00-10.9); Hematocrit 21.3 VOL% (42.0-52.0); Immature Granulocytes % 0.4 %; Immature Granulocytes Absolute 0.02 #; Lymphocytes # 1.5 10*3/uL (1.4-4.0); Lymphocytes % 27.1 % (21.2-54.2); Mean Corpuscular HGB Conc 29.6 GM/DL (32-36); Mean Corpuscular Volume 91.4 FL (87-102); Mean Platelet Volume 10.1 FL (9.6-12.0); Monocytes % 15.5 % (1.7-12.7); NRBC # 0.02 10*3/uL; Neutrophils % 51.5 % (38.7-73.9); Platelet Count 116 T/CUMM (130-400); Red Blood Count 2.33 MC/CUMM (3.8-5.5); Red Cell Distribution Width 19.2 % (9.3-17.3); White Blood Count 5.4 T/CUMM (4-12)
[2019-05-31 09:07] LABS: Hemoglobin 6.3 GM/DL (14.0-18.0)
[2019-05-31 09:39] LABS: Hypochromasia 2+; Platelet Estimate Decreased
[2019-05-31 10:46] LABS: Calcium 8.8 MG/DL (8.5-10.1); Osmolality,Calculated 295.3 MOS/KG (273-304); Thyroid Stimulating Hormone 3.84 uIU/ml (0.358-3.74)
[2019-05-31] MEDS: diphenhydrAMINE 50 MG/1 ML VIAL IV PRN ×2 (13:51→20:26)
[2019-05-31] MEDS ORDERED: ALUM/MAG/SIMETH/LIDO VISC 1:1 30 ML BOTTLE PO PRN (16:18)
[2019-05-31] MEDS ORDERED: ASPIRIN EC 81 MG TABLET PO ONE (16:19)
[2019-05-31] MEDS: MORPHINE 4 MG/1 ML VIAL IV PRN ×2 (16:27→20:27)
[2019-05-31] MEDS: CALCIUM (CARBONATE) 600 MG TABLET PO SCH (20:25)
[2019-05-31] MEDS ORDERED: ROSUVASTATIN 10 MG TABLET PO SCH (21:00)
[2019-06-01] MEDS: NITROGLYCERIN DRIP 50 MG/250 ML BOTTLE IV SCH ×2 (03:14→23:22)
[2019-06-01 04:04] LABS: Basophils % 0.6 % (0.0-0.8); Eosinophils # 0.2 10*3/uL (0.0-0.87); Eosinophils % 3.9 % (0.00-10.9); Hematocrit 27.9 VOL% (42.0-52.0); Immature Granulocytes % 0.2 %; Immature Granulocytes Absolute 0.01 #; Lymphocytes # 0.9 10*3/uL (1.4-4.0); Lymphocytes % 17.8 % (21.2-54.2); Mean Corpuscular HGB Conc 31.5 GM/DL (32-36); Mean Corpuscular Volume 87.5 FL (87-102); Mean Platelet Volume 9.9 FL (9.6-12.0); Monocytes % 15.1 % (1.7-12.7); Neutrophils % 62.4 % (38.7-73.9); Platelet Count 118 T/CUMM (130-400); Red Cell Distribution Width 18.5 % (9.3-17.3); White Blood Count 5.2 T/CUMM (4-12)
[2019-06-01 04:22] LABS: Red Blood Count 3.19 MC/CUMM (3.8-5.5)
[2019-06-01 04:23] LABS: Hemoglobin 8.8 GM/DL (14.0-18.0)
[2019-06-01] MEDS: MORPHINE 4 MG/1 ML VIAL IV PRN ×3 (04:32→16:40)
[2019-06-01] MEDS: diphenhydrAMINE 50 MG/1 ML VIAL IV PRN ×3 (04:33→21:49)
[2019-06-01 04:38] LABS: Calcium 8.8 MG/DL (8.5-10.1); Osmolality,Calculated 278.8 MOS/KG (273-304)
[2019-06-01] MEDS ORDERED: NITROGLYCERIN SL 0.4 MG TABLET SL PRN (08:15)
[2019-06-01] MEDS: ASCORBIC ACID 500 MG TABLET PO SCH (08:19)
[2019-06-01] MEDS: MULTIVITAMIN (BEROCCA) TABLET PO SCH (08:19)
[2019-06-01] MEDS: CARVEDILOL 25 MG TABLET PO SCH ×2 (08:19→21:35)
[2019-06-01] MEDS: ISOSORBIDE MONONITRATE 30 MG TABLET PO SCH (08:19)
[2019-06-01] MEDS: SULFAMETHOX/TRIMETHOPRIM 400-80 MG TABLET PO SCH (08:19)
[2019-06-01] MEDS: ASPIRIN EC 81 MG TABLET PO SCH (08:22)
[2019-06-01] MEDS: SEVELAMER CARBONATE 800 MG TABLET PO SCH ×3 (08:22→23:10)
[2019-06-01 12:13] LABS: Free T4 (Free Thyroxine) 1.09 NG/DL (0.76-1.46)
[2019-06-01] MEDS ORDERED: ALUMINUM/MAGNES/SIMETH MAX STR 30 ML UDCUP PO PRN (18:00)
[2019-06-01] MEDS: ALUMINUM/MAGNES/SIMETH MAX STR 30 ML UDCUP PO SCH (18:19)
[2019-06-01] MEDS: ROSUVASTATIN 20 MG TABLET PO SCH (21:35)
[2019-06-01] MEDS: CALCIUM (CARBONATE) 600 MG TABLET PO SCH (21:35)
[2019-06-01] MEDS: oxyCODONE/ACETAMINOPHEN 5-325 MG TABLET PO PRN (21:48)
[2019-06-02] MEDS: MORPHINE 4 MG/1 ML VIAL IV PRN ×3 (00:54→16:06)
[2019-06-02] MEDS: ALUMINUM/MAGNES/SIMETH MAX STR 30 ML UDCUP PO SCH ×4 (01:01→17:56)
[2019-06-02] MEDS: diphenhydrAMINE 50 MG/1 ML VIAL IV PRN ×3 (03:18→18:40)
[2019-06-02 03:46] LABS: Basophils % 0.9 % (0.0-0.8); Eosinophils # 0.2 10*3/uL (0.0-0.87); Eosinophils % 3.5 % (0.00-10.9); Hematocrit 30.2 VOL% (42.0-52.0); Hemoglobin 9.4 GM/DL (14.0-18.0); Immature Granulocytes % 0.2 %; Immature Granulocytes Absolute 0.01 #; Lymphocytes # 1.2 10*3/uL (1.4-4.0); Lymphocytes % 26.8 % (21.2-54.2); Mean Corpuscular HGB Conc 31.1 GM/DL (32-36); Mean Platelet Volume 10.8 FL (9.6-12.0); Monocytes % 15.5 % (1.7-12.7); Neutrophils % 53.1 % (38.7-73.9); Platelet Count 121 T/CUMM (130-400); Red Blood Count 3.47 MC/CUMM (3.8-5.5); Red Cell Distribution Width 18.9 % (9.3-17.3); White Blood Count 4.5 T/CUMM (4-12)
[2019-06-02 04:11] LABS: Calcium 8.6 MG/DL (8.5-10.1); Osmolality,Calculated 282.7 MOS/KG (273-304)
[2019-06-02] MEDS: SEVELAMER CARBONATE 800 MG TABLET PO SCH ×3 (08:33→16:07)
[2019-06-02] MEDS: PROMETHAZINE 25 MG TABLET PO PRN (08:34)
[2019-06-02] MEDS: NITROGLYCERIN SL 0.4 MG TABLET SL SCH ×3 (08:59→21:49)
[2019-06-02] MEDS: MULTIVITAMIN (BEROCCA) TABLET PO SCH (09:56)
[2019-06-02] MEDS: ASPIRIN EC 81 MG TABLET PO SCH (09:56)
[2019-06-02] MEDS: SULFAMETHOX/TRIMETHOPRIM 400-80 MG TABLET PO SCH (09:56)
[2019-06-02] MEDS: ASCORBIC ACID 500 MG TABLET PO SCH (09:57)
[2019-06-02] MEDS: ISOSORBIDE MONONITRATE 30 MG TABLET PO SCH (09:57)
[2019-06-02] MEDS: CARVEDILOL 25 MG TABLET PO SCH ×2 (09:57→21:49)
[2019-06-02 15:57] LABS: Troponin I 0.826 NG/ML (0.00-0.045)
[2019-06-02] MEDS: CALCIUM (CARBONATE) 600 MG TABLET PO SCH (21:49)
[2019-06-02] MEDS: ROSUVASTATIN 20 MG TABLET PO SCH (21:49)
[2019-06-03] MEDS: MORPHINE 4 MG/1 ML VIAL IV PRN ×4 (00:09→20:20)
[2019-06-03] MEDS: ALUMINUM/MAGNES/SIMETH MAX STR 30 ML UDCUP PO SCH ×4 (00:09→18:13)
[2019-06-03] MEDS: NITROGLYCERIN DRIP 50 MG/250 ML BOTTLE IV SCH (00:38)
[2019-06-03] MEDS: diphenhydrAMINE 50 MG/1 ML VIAL IV PRN ×4 (01:33→21:30)
[2019-06-03 06:02] LABS: Basophils % 0.8 % (0.0-0.8); Eosinophils # 0.2 10*3/uL (0.0-0.87); Eosinophils % 4.3 % (0.00-10.9); Hematocrit 33.2 VOL% (42.0-52.0); Hemoglobin 10.2 GM/DL (14.0-18.0); Immature Granulocytes % 0.2 %; Immature Granulocytes Absolute 0.01 #; Lymphocytes # 1.2 10*3/uL (1.4-4.0); Lymphocytes % 22.9 % (21.2-54.2); Mean Corpuscular HGB Conc 30.7 GM/DL (32-36); Mean Corpuscular Volume 88.3 FL (87-102); Mean Platelet Volume 10.1 FL (9.6-12.0); Monocytes % 15.4 % (1.7-12.7); Neutrophils % 56.4 % (38.7-73.9); Platelet Count 121 T/CUMM (130-400); Red Blood Count 3.76 MC/CUMM (3.8-5.5); Red Cell Distribution Width 18.9 % (9.3-17.3); White Blood Count 5.1 T/CUMM (4-12)
[2019-06-03] MEDS: oxyCODONE/ACETAMINOPHEN 5-325 MG TABLET PO PRN (06:20)
[2019-06-03] MEDS: NITROGLYCERIN SL 0.4 MG TABLET SL SCH ×2 (06:21→08:58)
[2019-06-03 06:34] LABS: Calcium 9.5 MG/DL (8.5-10.1); Osmolality,Calculated 278.8 MOS/KG (273-304)
[2019-06-03 07:16] LABS: Troponin I 0.807 NG/ML (0.00-0.045)
[2019-06-03] MEDS: ISOSORBIDE MONONITRATE 30 MG TABLET PO SCH (08:44)
[2019-06-03] MEDS: MULTIVITAMIN (BEROCCA) TABLET PO SCH (08:44)
[2019-06-03] MEDS: SULFAMETHOX/TRIMETHOPRIM 400-80 MG TABLET PO SCH (08:44)
[2019-06-03] MEDS: CARVEDILOL 25 MG TABLET PO SCH ×2 (08:44→20:22)
[2019-06-03] MEDS: ASPIRIN EC 81 MG TABLET PO SCH (08:44)
[2019-06-03] MEDS: ASCORBIC ACID 500 MG TABLET PO SCH (08:44)
[2019-06-03] MEDS: SEVELAMER CARBONATE 800 MG TABLET PO SCH ×5 (08:44→16:01)
[2019-06-03 09:45] LABS: Troponin I 0.825 NG/ML (0.00-0.045)
[2019-06-03] MEDS ORDERED: NITROGLYCERIN SL 0.4 MG TABLET SL PRN (13:50)
[2019-06-03] MEDS: SUCRALFATE 1 GM TABLET PO SCH (18:13)
[2019-06-03] MEDS: ROSUVASTATIN 20 MG TABLET PO SCH (20:22)
[2019-06-03] MEDS: CALCIUM (CARBONATE) 600 MG TABLET PO SCH (20:22)
[2019-06-04] MEDS: SUCRALFATE 1 GM TABLET PO SCH ×5 (00:30→23:40)
[2019-06-04] MEDS: MORPHINE 4 MG/1 ML VIAL IV PRN ×3 (01:00→23:33)
[2019-06-04] MEDS: LANSOPRAZOLE ODT 30 MG TABLET PO SCH ×3 (01:40→21:13)
[2019-06-04] MEDS: ALUMINUM/MAGNES/SIMETH MAX STR 30 ML UDCUP PO SCH ×4 (02:22→17:33)
[2019-06-04] MEDS: diphenhydrAMINE 50 MG/1 ML VIAL IV PRN ×2 (05:00→19:44)
[2019-06-04] MEDS: ASCORBIC ACID 500 MG TABLET PO SCH (08:27)
[2019-06-04] MEDS: MULTIVITAMIN (BEROCCA) TABLET PO SCH (08:27)
[2019-06-04] MEDS: SULFAMETHOX/TRIMETHOPRIM 400-80 MG TABLET PO SCH (08:28)
[2019-06-04] MEDS: SEVELAMER CARBONATE 800 MG TABLET PO SCH ×3 (08:34→17:22)
[2019-06-04 09:38] LABS: Basophils % 0.6 % (0.0-0.8); Eosinophils # 0.3 10*3/uL (0.0-0.87); Eosinophils % 5.3 % (0.00-10.9); Hematocrit 31.6 VOL% (42.0-52.0); Immature Granulocytes % 0.2 %; Immature Granulocytes Absolute 0.01 #; Lymphocytes % 20.9 % (21.2-54.2); Mean Corpuscular HGB Conc 31.6 GM/DL (32-36); Mean Corpuscular Volume 87.8 FL (87-102); Mean Platelet Volume 9.7 FL (9.6-12.0); Platelet Count 109 T/CUMM (130-400); Red Cell Distribution Width 18.7 % (9.3-17.3); White Blood Count 4.9 T/CUMM (4-12)
[2019-06-04 10:11] LABS: Calcium 9.3 MG/DL (8.5-10.1); Osmolality,Calculated 285.5 MOS/KG (273-304)
[2019-06-04] MEDS: ISOSORBIDE MONONITRATE 30 MG TABLET PO SCH (13:02)
[2019-06-04] MEDS: CARVEDILOL 25 MG TABLET PO SCH ×2 (13:03→21:12)
[2019-06-04] MEDS: ASPIRIN EC 81 MG TABLET PO SCH (15:28)
[2019-06-04] MEDS: MEROPENEM 500 MG in SODIUM CHLORIDE 0.9% 100 ML IV SCH (15:28)
[2019-06-04] MEDS: CALCIUM (CARBONATE) 600 MG TABLET PO SCH (21:11)
[2019-06-04] MEDS: ROSUVASTATIN 20 MG TABLET PO SCH (21:11)
[2019-06-05] MEDS: ALUMINUM/MAGNES/SIMETH MAX STR 30 ML UDCUP PO SCH ×4 (01:16→17:31)
[2019-06-05] MEDS: oxyCODONE/ACETAMINOPHEN 5-325 MG TABLET PO PRN ×2 (04:46→10:07)
[2019-06-05] MEDS: diphenhydrAMINE 50 MG/1 ML VIAL IV PRN (04:47)
[2019-06-05] MEDS: SUCRALFATE 1 GM TABLET PO SCH ×4 (06:18→17:28)
[2019-06-05] MEDS: SULFAMETHOX/TRIMETHOPRIM 400-80 MG TABLET PO SCH (09:39)
[2019-06-05] MEDS: SEVELAMER CARBONATE 800 MG TABLET PO SCH ×3 (09:39→16:40)
[2019-06-05] MEDS: MULTIVITAMIN (BEROCCA) TABLET PO SCH (09:39)
[2019-06-05] MEDS: ISOSORBIDE MONONITRATE 30 MG TABLET PO SCH (09:40)
[2019-06-05] MEDS: ASCORBIC ACID 500 MG TABLET PO SCH (09:40)
[2019-06-05] MEDS: CARVEDILOL 25 MG TABLET PO SCH ×2 (09:40→20:38)
[2019-06-05] MEDS: ASPIRIN EC 81 MG TABLET PO SCH (09:41)
[2019-06-05] MEDS: LANSOPRAZOLE ODT 30 MG TABLET PO SCH ×2 (09:46→20:38)
[2019-06-05] MEDS: DOCUSATE SODIUM 100 MG CAPSULE PO SCH ×2 (09:56→20:37)
[2019-06-05] MEDS: MEROPENEM 500 MG in SODIUM CHLORIDE 0.9% 100 ML IV SCH (15:08)
[2019-06-05] MEDS: ROSUVASTATIN 20 MG TABLET PO SCH (20:37)
[2019-06-05] MEDS: CALCIUM (CARBONATE) 600 MG TABLET PO SCH (20:38)
[2019-06-05] MEDS: diphenhydrAMINE CAP 50 MG CAPSULE PO PRN (20:38)
[2019-06-05] MEDS: traMADol 50 MG TABLET PO PRN (20:40)
[2019-06-06] MEDS: SUCRALFATE 1 GM TABLET PO SCH ×5 (00:23→23:30)
[2019-06-06] MEDS: ALUMINUM/MAGNES/SIMETH MAX STR 30 ML UDCUP PO SCH ×4 (00:23→17:44)
[2019-06-06] MEDS: LANSOPRAZOLE ODT 30 MG TABLET PO SCH ×2 (09:12→20:22)
[2019-06-06] MEDS: ISOSORBIDE MONONITRATE 30 MG TABLET PO SCH (09:12)
[2019-06-06] MEDS: ASPIRIN EC 81 MG TABLET PO SCH (09:12)
[2019-06-06] MEDS: SEVELAMER CARBONATE 800 MG TABLET PO SCH ×3 (09:12→17:40)
[2019-06-06] MEDS: DOCUSATE SODIUM 100 MG CAPSULE PO SCH ×2 (09:13→20:22)
[2019-06-06] MEDS: MULTIVITAMIN (BEROCCA) TABLET PO SCH (09:13)
[2019-06-06] MEDS: CARVEDILOL 25 MG TABLET PO SCH ×2 (09:13→20:22)
[2019-06-06] MEDS: ASCORBIC ACID 500 MG TABLET PO SCH (09:13)
[2019-06-06] MEDS: MEROPENEM 500 MG in SODIUM CHLORIDE 0.9% 100 ML IV SCH (14:34)
[2019-06-06] MEDS: diphenhydrAMINE CAP 50 MG CAPSULE PO PRN (15:09)
[2019-06-06] MEDS: traMADol 50 MG TABLET PO PRN (17:42)
[2019-06-06] MEDS: CALCIUM (CARBONATE) 600 MG TABLET PO SCH (20:22)
[2019-06-06] MEDS: ROSUVASTATIN 20 MG TABLET PO SCH (20:22)
[2019-06-07] MEDS: ALUMINUM/MAGNES/SIMETH MAX STR 30 ML UDCUP PO SCH ×4 (01:20→18:21)
[2019-06-07] MEDS ORDERED: diphenhydrAMINE 50 MG/1 ML VIAL IM ONE (02:06)
[2019-06-07] MEDS: SUCRALFATE 1 GM TABLET PO SCH ×3 (05:52→17:09)
[2019-06-07 09:24] LABS: Basophils # 0.1 10*3/uL (0.0-0.2); Eosinophils # 0.4 10*3/uL (0.0-0.87); Eosinophils % 7.9 % (0.00-10.9); Hemoglobin 10.1 GM/DL (14.0-18.0); Immature Granulocytes % 0.2 %; Immature Granulocytes Absolute 0.01 #; Lymphocytes # 1.2 10*3/uL (1.4-4.0); Lymphocytes % 25.2 % (21.2-54.2); Mean Corpuscular HGB Conc 31.6 GM/DL (32-36); Mean Corpuscular Volume 86.5 FL (87-102); Mean Platelet Volume 9.6 FL (9.6-12.0); Monocytes % 13.5 % (1.7-12.7); Neutrophils % 52.2 % (38.7-73.9); Platelet Count 105 T/CUMM (130-400); Red Cell Distribution Width 17.6 % (9.3-17.3); White Blood Count 4.8 T/CUMM (4-12)
[2019-06-07 09:50] LABS: Calcium 9.3 MG/DL (8.5-10.1); Osmolality,Calculated 282.8 MOS/KG (273-304)
[2019-06-07] MEDS: DOCUSATE SODIUM 100 MG CAPSULE PO SCH ×2 (13:02→20:41)
[2019-06-07] MEDS: SEVELAMER CARBONATE 800 MG TABLET PO SCH ×3 (13:03→17:04)
[2019-06-07] MEDS: CARVEDILOL 25 MG TABLET PO SCH ×2 (13:03→20:48)
[2019-06-07] MEDS: ASPIRIN EC 81 MG TABLET PO SCH (13:03)
[2019-06-07] MEDS: LANSOPRAZOLE ODT 30 MG TABLET PO SCH ×2 (13:04→20:49)
[2019-06-07] MEDS: ISOSORBIDE MONONITRATE 30 MG TABLET PO SCH (13:04)
[2019-06-07] MEDS: MULTIVITAMIN (BEROCCA) TABLET PO SCH (13:05)
[2019-06-07] MEDS: ASCORBIC ACID 500 MG TABLET PO SCH (13:05)
[2019-06-07] MEDS: traMADol 50 MG TABLET PO PRN (14:03)
[2019-06-07] MEDS: ALPRAZolam 0.25 MG TABLET PO PRN (14:13)
[2019-06-07] MEDS: MEROPENEM 500 MG in SODIUM CHLORIDE 0.9% 100 ML IV SCH (14:13)
[2019-06-07] MEDS: ROSUVASTATIN 20 MG TABLET PO SCH (20:43)
[2019-06-07] MEDS: CALCIUM (CARBONATE) 600 MG TABLET PO SCH (20:46)
[2019-06-08] MEDS: SUCRALFATE 1 GM TABLET PO SCH ×4 (00:20→17:20)
[2019-06-08] MEDS: ALUMINUM/MAGNES/SIMETH MAX STR 30 ML UDCUP PO SCH ×4 (07:25→19:33)
[2019-06-08] MEDS: ISOSORBIDE MONONITRATE 30 MG TABLET PO SCH (09:41)
[2019-06-08] MEDS: MULTIVITAMIN (BEROCCA) TABLET PO SCH (09:41)
[2019-06-08] MEDS: SEVELAMER CARBONATE 800 MG TABLET PO SCH ×3 (09:41→18:22)
[2019-06-08] MEDS: ASCORBIC ACID 500 MG TABLET PO SCH (09:41)
[2019-06-08] MEDS: traMADol 50 MG TABLET PO PRN ×2 (09:42→23:01)
[2019-06-08] MEDS: DOCUSATE SODIUM 100 MG CAPSULE PO SCH ×2 (09:42→20:53)
[2019-06-08] MEDS: LANSOPRAZOLE ODT 30 MG TABLET PO SCH ×2 (09:43→20:53)
[2019-06-08] MEDS: CARVEDILOL 25 MG TABLET PO SCH ×2 (09:43→20:53)
[2019-06-08] MEDS: ASPIRIN EC 81 MG TABLET PO SCH (09:44)
[2019-06-08] MEDS: ALPRAZolam 0.25 MG TABLET PO PRN (09:51)
[2019-06-08] MEDS: MEROPENEM 500 MG in SODIUM CHLORIDE 0.9% 100 ML IV SCH (16:42)
[2019-06-08] MEDS ORDERED: methylPREDNISolone SOD SUC 125 MG/2 ML VIAL IV ONE (17:59)
[2019-06-08] MEDS ORDERED: diphenhydrAMINE 50 MG/1 ML VIAL IV ONE (18:03)
[2019-06-08] MEDS ORDERED: FAMOTIDINE INJ 40 MG in SODIUM CHLORIDE 0.9% 100 ML IV ONE (18:05)
[2019-06-08] MEDS ORDERED: diphenhydrAMINE 50 MG/1 ML VIAL IV PRN (18:07)
[2019-06-08] MEDS ORDERED: FAMOTIDINE 20 MG/2 ML VIAL IV ONE (18:30)
[2019-06-08] MEDS: ROSUVASTATIN 20 MG TABLET PO SCH (20:52)
[2019-06-08] MEDS: CALCIUM (CARBONATE) 600 MG TABLET PO SCH (20:53)
[2019-06-08] MEDS: ACETAMINOPHEN 325 MG TABLET PO PRN (20:53)
[2019-06-09] MEDS: ALUMINUM/MAGNES/SIMETH MAX STR 30 ML UDCUP PO SCH ×4 (03:11→20:06)
[2019-06-09] MEDS: SUCRALFATE 1 GM TABLET PO SCH ×4 (03:11→20:06)
[2019-06-09] MEDS: ACETAMINOPHEN 325 MG TABLET PO PRN (03:34)
[2019-06-09] MEDS: traMADol 50 MG TABLET PO PRN ×2 (06:25→15:16)
[2019-06-09] MEDS: SEVELAMER CARBONATE 800 MG TABLET PO SCH ×3 (08:37→17:05)
[2019-06-09] MEDS: MULTIVITAMIN (BEROCCA) TABLET PO SCH (08:37)
[2019-06-09] MEDS: ASPIRIN EC 81 MG TABLET PO SCH (08:37)
[2019-06-09] MEDS: DOCUSATE SODIUM 100 MG CAPSULE PO SCH (08:38)
[2019-06-09] MEDS: ASCORBIC ACID 500 MG TABLET PO SCH (08:38)
[2019-06-09] MEDS: LANSOPRAZOLE ODT 30 MG TABLET PO SCH (08:39)
[2019-06-09] MEDS: ISOSORBIDE MONONITRATE 30 MG TABLET PO SCH (08:40)
[2019-06-09] MEDS: CARVEDILOL 25 MG TABLET PO SCH ×2 (11:41→13:04)
[2019-06-09] MEDS ORDERED: PROMETHAZINE 25 MG/1 ML VIAL IM ONE ×2 (13:19→23:08)
[2019-06-09] MEDS: MEROPENEM 500 MG in SODIUM CHLORIDE 0.9% 100 ML IV SCH (15:54)
[2019-06-09] MEDS ORDERED: MEPERIDINE 50 MG/1 ML VIAL IM ONE (20:20)
[2019-06-10] MEDS: CARVEDILOL 25 MG TABLET PO SCH ×2 (00:02→09:05)
[2019-06-10] MEDS: DOCUSATE SODIUM 100 MG CAPSULE PO SCH ×2 (00:02→09:05)
[2019-06-10] MEDS: ROSUVASTATIN 20 MG TABLET PO SCH (00:02)
[2019-06-10] MEDS: CALCIUM (CARBONATE) 600 MG TABLET PO SCH (00:02)
[2019-06-10] MEDS: LANSOPRAZOLE ODT 30 MG TABLET PO SCH ×2 (00:03→09:04)
[2019-06-10] MEDS: SUCRALFATE 1 GM TABLET PO SCH ×4 (01:02→18:04)
[2019-06-10] MEDS: traMADol 50 MG TABLET PO PRN ×2 (01:02→12:54)
[2019-06-10] MEDS: ALUMINUM/MAGNES/SIMETH MAX STR 30 ML UDCUP PO SCH ×4 (01:03→18:04)
[2019-06-10 01:15] LABS: Hematocrit 33.8 VOL% (42.0-52.0); Hemoglobin 10.9 GM/DL (14.0-18.0)
[2019-06-10] MEDS: MULTIVITAMIN (BEROCCA) TABLET PO SCH (09:03)
[2019-06-10] MEDS: ASCORBIC ACID 500 MG TABLET PO SCH (09:04)
[2019-06-10] MEDS: ISOSORBIDE MONONITRATE 30 MG TABLET PO SCH (09:04)
[2019-06-10] MEDS: ASPIRIN EC 81 MG TABLET PO SCH (09:04)
[2019-06-10] MEDS: SEVELAMER CARBONATE 800 MG TABLET PO SCH ×3 (09:05→17:03)
[2019-06-10] MEDS: MEROPENEM 500 MG in SODIUM CHLORIDE 0.9% 100 ML IV SCH (14:39)
[2019-06-10] MEDS: PROMETHAZINE 25 MG TABLET PO PRN (18:32)
[2019-06-10] MEDS ORDERED: PROMETHAZINE 25 MG/1 ML VIAL IM PRN (19:45)
[2019-06-11] MEDS: ROSUVASTATIN 20 MG TABLET PO SCH (01:33)
[2019-06-11] MEDS: DOCUSATE SODIUM 100 MG CAPSULE PO SCH ×2 (01:34→12:40)
[2019-06-11] MEDS: CARVEDILOL 25 MG TABLET PO SCH ×2 (01:34→12:40)
[2019-06-11] MEDS: CALCIUM (CARBONATE) 600 MG TABLET PO SCH (01:35)
[2019-06-11] MEDS: LANSOPRAZOLE ODT 30 MG TABLET PO SCH ×2 (01:35→12:40)
[2019-06-11] MEDS: SUCRALFATE 1 GM TABLET PO SCH ×4 (02:21→17:03)
[2019-06-11] MEDS: ALUMINUM/MAGNES/SIMETH MAX STR 30 ML UDCUP PO SCH ×3 (02:30→12:42)
[2019-06-11] MEDS: SEVELAMER CARBONATE 800 MG TABLET PO SCH ×3 (10:02→17:03)
[2019-06-11 11:24] LABS: Basophils # 0.1 10*3/uL (0.0-0.2); Basophils % 1.1 % (0.0-0.8); Eosinophils # 0.4 10*3/uL (0.0-0.87); Eosinophils % 5.7 % (0.00-10.9); Hematocrit 34.1 VOL% (42.0-52.0); Immature Granulocytes % 0.2 %; Immature Granulocytes Absolute 0.01 #; Lymphocytes # 0.9 10*3/uL (1.4-4.0); Lymphocytes % 14.9 % (21.2-54.2); Mean Corpuscular HGB Conc 32.3 GM/DL (32-36); Mean Platelet Volume 9.6 FL (9.6-12.0); Monocytes % 13.8 % (1.7-12.7); Neutrophils % 64.3 % (38.7-73.9); Platelet Count 115 T/CUMM (130-400); Red Blood Count 4.01 MC/CUMM (3.8-5.5); Red Cell Distribution Width 17.2 % (9.3-17.3); White Blood Count 6.1 T/CUMM (4-12)
[2019-06-11 11:49] LABS: Calcium 9.4 MG/DL (8.5-10.1); Osmolality,Calculated 273.1 MOS/KG (273-304)
[2019-06-11] MEDS: ASCORBIC ACID 500 MG TABLET PO SCH (12:38)
[2019-06-11] MEDS: MULTIVITAMIN (BEROCCA) TABLET PO SCH (12:38)
[2019-06-11] MEDS: ASPIRIN EC 81 MG TABLET PO SCH (12:39)
[2019-06-11] MEDS: ISOSORBIDE MONONITRATE 30 MG TABLET PO SCH (12:40)
[2019-06-11] MEDS: MEROPENEM 500 MG in SODIUM CHLORIDE 0.9% 100 ML IV SCH (14:45)
[2019-06-11 16:18] VITALS: BP 127/69
== END 2019-06-11 17:21 | disposition home health service (06) | DRG 304 ==
LOC: EDUNIT# → EDBD → N.ED 22:08 → N.EDINP 22:08 → N.CC 05-31 02:43 → SUATTDRO 05-31 09:25 → N.TELEN 06-02 15:08 → N.CC 06-08 19:21 → N.TELEN 06-09 17:29
PROVIDERS: ADMIT Internal Medicine; ATTEND Internal Medicine Geriatric Medicine

== ENCOUNTER 2019-07-15 21:14 | Inpatient (IN) ==
[2019-07-15] MEDS ORDERED: ALBUTEROL 2.5 MG/3 ML NEB RESP TX PRN (22:52)
[2019-07-16] MEDS: ENOXAPARIN 60 MG/0.6 ML SYRINGE SUBCUT SCH ×3 (00:14→18:30)
[2019-07-16] MEDS: NITROGLYCERIN 2% OINT 1 INCH/GM PACK TOP SCH ×4 (00:14→18:30)
[2019-07-16] MEDS: MORPHINE 4 MG/1 ML VIAL IV PRN ×3 (00:14→22:10)
[2019-07-16 06:01] LABS: Risk Ratio 3.76; VLDL CHOLESTEROL 22.4 MG/DL
[2019-07-16 07:19] LABS: Calcium 7.9 MG/DL (8.5-10.1); Osmolality,Calculated 290.3 MOS/KG (273-304)
[2019-07-16] MEDS: SEVELAMER CARBONATE 800 MG TABLET PO SCH ×3 (08:18→17:41)
[2019-07-16] MEDS ORDERED: diphenhydrAMINE 50 MG/1 ML VIAL IV ONE (09:20)
[2019-07-16] MEDS ORDERED: methylPREDNISolone SOD SUC 125 MG/2 ML VIAL IV ONE ×2 (09:22→09:30)
[2019-07-16] MEDS ORDERED: FAMOTIDINE INJ 40 MG in SODIUM CHLORIDE 0.9% 100 ML IV ONE (09:29)
[2019-07-16] MEDS ORDERED: NITROGLYCERIN SL 0.4 MG TABLET SL PRN (09:36)
[2019-07-16] MEDS: ASPIRIN EC 81 MG TABLET PO SCH (09:51)
[2019-07-16] MEDS: LANSOPRAZOLE ODT 30 MG TABLET PO SCH ×2 (09:52→22:10)
[2019-07-16] MEDS: ASCORBIC ACID 500 MG TABLET PO SCH (09:52)
[2019-07-16] MEDS: ISOSORBIDE MONONITRATE 30 MG TABLET PO SCH (09:52)
[2019-07-16] MEDS: carvediloL 25 MG TABLET PO SCH ×2 (09:52→22:09)
[2019-07-16] MEDS: RANOLAZINE 500 MG TABLET PO SCH ×2 (12:44→22:09)
[2019-07-16] MEDS: CLOPIDOGREL 75 MG TABLET PO SCH (12:44)
[2019-07-16 13:50] LABS: Hepatitis B Surface Ag Quant < 0.10 Index; Hepatitis B Surface Ag Result Negative (Negative); Hepatitis C Virus Ab Quant 0.03 Index; Hepatitis C Virus Ab Result Negative (Negative)
[2019-07-16] MEDS ORDERED: ROSUVASTATIN 10 MG TABLET PO SCH (21:00)
[2019-07-16] MEDS: CALCIUM (CARBONATE) 600 MG TABLET PO SCH (22:09)
[2019-07-16] MEDS: ROSUVASTATIN 20 MG TABLET PO SCH (22:09)
[2019-07-17] MEDS: NITROGLYCERIN 2% OINT 1 INCH/GM PACK TOP SCH ×5 (01:21→23:29)
[2019-07-17 04:33] LABS: Basophils % 0.5 % (0.0-0.8); Eosinophils % 0.2 % (0.00-10.9); Hematocrit 25.5 VOL% (42.0-52.0); Hemoglobin 7.9 GM/DL (14.0-18.0); Immature Granulocytes % 0.2 %; Immature Granulocytes Absolute 0.01 #; Lymphocytes # 0.9 10*3/uL (1.4-4.0); Lymphocytes % 20.9 % (21.2-54.2); Mean Corpuscular Volume 88.9 FL (87-102); Mean Platelet Volume 9.9 FL (9.6-12.0); Monocytes % 17.6 % (1.7-12.7); Neutrophils % 60.6 % (38.7-73.9); Platelet Count 107 T/CUMM (130-400); Red Blood Count 2.87 MC/CUMM (3.8-5.5); Red Cell Distribution Width 17.6 % (9.3-17.3); White Blood Count 4.3 T/CUMM (4-12)
[2019-07-17 04:58] LABS: Calcium 7.6 MG/DL (8.5-10.1)
[2019-07-17 06:00] LABS: Anisocytosis 1+; Band Neutrophils 2 % (0-10); Hypochromasia 2+; Lymphocytes 20 % (20-55); Macrocytosis 1+; Ovalocytes 1+; Platelet Estimate Decreased; Segmented Neutrophils 62 % (50-85); Total Cells Counted 100
[2019-07-17] MEDS: MORPHINE 4 MG/1 ML VIAL IV PRN ×3 (06:12→22:46)
[2019-07-17] MEDS: ASPIRIN EC 81 MG TABLET PO SCH (08:08)
[2019-07-17] MEDS: carvediloL 25 MG TABLET PO SCH ×2 (08:09→20:22)
[2019-07-17] MEDS: SEVELAMER CARBONATE 800 MG TABLET PO SCH ×6 (08:09→16:51)
[2019-07-17] MEDS: RANOLAZINE 500 MG TABLET PO SCH ×2 (08:09→20:22)
[2019-07-17] MEDS: CLOPIDOGREL 75 MG TABLET PO SCH (08:09)
[2019-07-17] MEDS: ISOSORBIDE MONONITRATE 30 MG TABLET PO SCH (08:11)
[2019-07-17] MEDS: LANSOPRAZOLE ODT 30 MG TABLET PO SCH ×2 (08:11→20:22)
[2019-07-17] MEDS: ASCORBIC ACID 500 MG TABLET PO SCH (08:11)
[2019-07-17] MEDS: ENOXAPARIN 60 MG/0.6 ML SYRINGE SUBCUT SCH (17:42)
[2019-07-17] MEDS: CALCIUM (CARBONATE) 600 MG TABLET PO SCH (20:21)
[2019-07-17] MEDS: ROSUVASTATIN 20 MG TABLET PO SCH (20:22)
[2019-07-18 04:39] LABS: Basophils # 0.1 10*3/uL (0.0-0.2); Eosinophils # 0.2 10*3/uL (0.0-0.87); Eosinophils % 4.4 % (0.00-10.9); Hematocrit 30.2 VOL% (42.0-52.0); Hemoglobin 9.1 GM/DL (14.0-18.0); Immature Granulocytes % 0.2 %; Immature Granulocytes Absolute 0.01 #; Lymphocytes # 1.8 10*3/uL (1.4-4.0); Lymphocytes % 36.9 % (21.2-54.2); Mean Corpuscular HGB Conc 30.1 GM/DL (32-36); Mean Corpuscular Volume 90.1 FL (87-102); Mean Platelet Volume 10.1 FL (9.6-12.0); Monocytes % 11.4 % (1.7-12.7); Neutrophils % 46.1 % (38.7-73.9); Platelet Count 123 T/CUMM (130-400); Red Blood Count 3.35 MC/CUMM (3.8-5.5); Red Cell Distribution Width 17.9 % (9.3-17.3)
[2019-07-18 04:52] LABS: Calcium 7.4 MG/DL (8.5-10.1); Osmolality,Calculated 287.7 MOS/KG (273-304)
[2019-07-18] MEDS: NITROGLYCERIN 2% OINT 1 INCH/GM PACK TOP SCH ×3 (05:42→18:52)
[2019-07-18] MEDS: ASPIRIN EC 81 MG TABLET PO SCH (08:55)
[2019-07-18] MEDS: LANSOPRAZOLE ODT 30 MG TABLET PO SCH ×2 (08:55→20:02)
[2019-07-18] MEDS: RANOLAZINE 500 MG TABLET PO SCH ×2 (08:55→20:02)
[2019-07-18] MEDS: ISOSORBIDE MONONITRATE 30 MG TABLET PO SCH (08:56)
[2019-07-18] MEDS: carvediloL 25 MG TABLET PO SCH ×2 (08:56→20:03)
[2019-07-18] MEDS: ASCORBIC ACID 500 MG TABLET PO SCH (08:56)
[2019-07-18] MEDS: methylPREDNISolone SOD SUC 125 MG/2 ML VIAL IV SCH ×2 (08:56→18:46)
[2019-07-18] MEDS: SEVELAMER CARBONATE 800 MG TABLET PO SCH ×3 (08:56→18:45)
[2019-07-18] MEDS: FAMOTIDINE 20 MG/2 ML VIAL IV SCH (08:57)
[2019-07-18] MEDS: diphenhydrAMINE CAP 50 MG CAPSULE PO SCH ×2 (09:34→20:03)
[2019-07-18] MEDS: CLOPIDOGREL 75 MG TABLET PO SCH (09:34)
[2019-07-18] MEDS: MORPHINE 4 MG/1 ML VIAL IV PRN (20:03)
[2019-07-18] MEDS: ROSUVASTATIN 20 MG TABLET PO SCH (20:03)
[2019-07-18] MEDS: CALCIUM (CARBONATE) 600 MG TABLET PO SCH (20:03)
[2019-07-19] MEDS: methylPREDNISolone SOD SUC 125 MG/2 ML VIAL IV SCH ×3 (00:01→17:23)
[2019-07-19] MEDS: NITROGLYCERIN 2% OINT 1 INCH/GM PACK TOP SCH ×5 (00:01→17:23)
[2019-07-19 04:31] LABS: Basophils % 0.3 % (0.0-0.8); Hematocrit 28.5 VOL% (42.0-52.0); Hemoglobin 8.7 GM/DL (14.0-18.0); Immature Granulocytes % 0.3 %; Immature Granulocytes Absolute 0.01 #; Lymphocytes # 0.5 10*3/uL (1.4-4.0); Lymphocytes % 12.9 % (21.2-54.2); Mean Corpuscular HGB Conc 30.5 GM/DL (32-36); Mean Corpuscular Volume 88.5 FL (87-102); Mean Platelet Volume 9.4 FL (9.6-12.0); Monocytes % 3.4 % (1.7-12.7); Neutrophils % 83.1 % (38.7-73.9); Platelet Count 109 T/CUMM (130-400); Red Blood Count 3.22 MC/CUMM (3.8-5.5); Red Cell Distribution Width 17.8 % (9.3-17.3); White Blood Count 3.8 T/CUMM (4-12)
[2019-07-19 05:14] LABS: Calcium 8.2 MG/DL (8.5-10.1); Osmolality,Calculated 297.5 MOS/KG (273-304)
[2019-07-19] MEDS ORDERED: DIAZEPAM 5 MG TABLET PO ONE ×2 (06:00→13:00)
[2019-07-19] MEDS: MORPHINE 4 MG/1 ML VIAL IV PRN ×3 (07:26→22:49)
[2019-07-19] MEDS: SEVELAMER CARBONATE 800 MG TABLET PO SCH ×4 (08:41→18:00)
[2019-07-19] MEDS: diphenhydrAMINE CAP 50 MG CAPSULE PO SCH ×2 (08:41→22:48)
[2019-07-19] MEDS: ASPIRIN EC 81 MG TABLET PO SCH ×2 (08:41→12:56)
[2019-07-19] MEDS: CLOPIDOGREL 75 MG TABLET PO SCH ×2 (08:42→12:56)
[2019-07-19] MEDS: FAMOTIDINE 20 MG/2 ML VIAL IV SCH ×2 (08:42→13:14)
[2019-07-19] MEDS: ISOSORBIDE MONONITRATE 30 MG TABLET PO SCH ×2 (08:42→14:47)
[2019-07-19] MEDS: LANSOPRAZOLE ODT 30 MG TABLET PO SCH ×3 (08:42→22:48)
[2019-07-19] MEDS: carvediloL 25 MG TABLET PO SCH ×3 (08:42→22:48)
[2019-07-19] MEDS: ASCORBIC ACID 500 MG TABLET PO SCH ×2 (08:43→14:48)
[2019-07-19] MEDS: RANOLAZINE 500 MG TABLET PO SCH ×3 (08:43→22:48)
[2019-07-19] MEDS ORDERED: diphenhydrAMINE 50 MG/1 ML VIAL IV ONE (11:00)
[2019-07-19] MEDS ORDERED: HEPARIN/NACL 0.9% 2 UNITS/ML 1,000 ML IV ONE (12:38)
[2019-07-19] MEDS ORDERED: LIDOCAINE 1% 20 ML VIAL ONE (12:38)
[2019-07-19] MEDS ORDERED: methylPREDNISolone SOD SUC 125 MG/2 ML VIAL ONE (13:09)
[2019-07-19] MEDS ORDERED: FAMOTIDINE 20 MG/2 ML VIAL IV ONE (13:11)
[2019-07-19] MEDS ORDERED: MIDAZOLAM 2 MG/2 ML VIAL ONE (13:29)
[2019-07-19] MEDS ORDERED: fentaNYL 100 MCG/2 ML VIAL ONE (13:34)
[2019-07-19] MEDS ORDERED: diphenhydrAMINE 50 MG/1 ML VIAL ONE (13:51)
[2019-07-19] MEDS: CALCIUM (CARBONATE) 600 MG TABLET PO SCH (22:48)
[2019-07-19] MEDS: ROSUVASTATIN 20 MG TABLET PO SCH (22:48)
[2019-07-20] MEDS: methylPREDNISolone SOD SUC 125 MG/2 ML VIAL IV SCH ×2 (01:00→08:25)
[2019-07-20] MEDS: NITROGLYCERIN 2% OINT 1 INCH/GM PACK TOP SCH ×2 (01:00→06:40)
[2019-07-20 04:36] LABS: Hematocrit 28.5 VOL% (42.0-52.0); Hemoglobin 8.9 GM/DL (14.0-18.0); Immature Granulocytes % 0.6 %; Immature Granulocytes Absolute 0.03 #; Lymphocytes # 0.4 10*3/uL (1.4-4.0); Lymphocytes % 7.7 % (21.2-54.2); Mean Corpuscular HGB Conc 31.2 GM/DL (32-36); Mean Corpuscular Volume 87.7 FL (87-102); Mean Platelet Volume 9.3 FL (9.6-12.0); Monocytes % 4.9 % (1.7-12.7); Neutrophils % 86.8 % (38.7-73.9); Platelet Count 103 T/CUMM (130-400); Red Blood Count 3.25 MC/CUMM (3.8-5.5); Red Cell Distribution Width 17.6 % (9.3-17.3); White Blood Count 4.7 T/CUMM (4-12)
[2019-07-20 05:04] LABS: Calcium 7.6 MG/DL (8.5-10.1)
[2019-07-20] MEDS: MORPHINE 4 MG/1 ML VIAL IV PRN (07:13)
[2019-07-20 07:55] VITALS: BP 114/76
[2019-07-20] MEDS: RANOLAZINE 500 MG TABLET PO SCH (08:26)
[2019-07-20] MEDS: SEVELAMER CARBONATE 800 MG TABLET PO SCH (08:26)
[2019-07-20] MEDS: ISOSORBIDE MONONITRATE 30 MG TABLET PO SCH (08:26)
[2019-07-20] MEDS: carvediloL 25 MG TABLET PO SCH (08:26)
[2019-07-20] MEDS: ASCORBIC ACID 500 MG TABLET PO SCH (08:26)
[2019-07-20] MEDS: diphenhydrAMINE CAP 50 MG CAPSULE PO SCH (08:26)
[2019-07-20] MEDS: ASPIRIN EC 81 MG TABLET PO SCH (08:27)
[2019-07-20] MEDS: FAMOTIDINE 20 MG/2 ML VIAL IV SCH (08:27)
[2019-07-20] MEDS: LANSOPRAZOLE ODT 30 MG TABLET PO SCH (08:27)
[2019-08-03 10:00] LABS: Dihydrocodeine/Hydrocodol-Free None Detected
== END 2019-07-20 11:33 | disposition home or self-care (01) | DRG 286 ==
LOC: N.CC → SUATTDRO 22:52 → N.TELEN 07-16 18:37
PROVIDERS: ADMIT Internal Medicine; ATTEND Internal Medicine
PROC: CLCCHCL (ICD-10-PCS; 2019-07-19 12:45)

== ENCOUNTER 2019-07-31 23:20 | Observation (INO) ==
[2019-07-31] MEDS ORDERED: hydrALAZINE 20 MG/1 ML VIAL IV STA (23:43)
[2019-07-31] MEDS ORDERED: LABETALOL 20 MG/4 ML SYRINGE IV STA (23:44)
[2019-07-31] MEDS ORDERED: NITROGLYCERIN 2% OINT 1 INCH/GM PACK TOP STA (23:45)
[2019-07-31] MEDS ORDERED: MORPHINE 4 MG/1 ML VIAL IV STA (23:47)
[2019-07-31 23:49] LABS: Basophils # 0.1 10*3/uL (0.0-0.2); Basophils % 0.7 % (0.0-0.8); Eosinophils # 0.3 10*3/uL (0.0-0.87); Eosinophils % 3.9 % (0.00-10.9); Hematocrit 30.3 VOL% (42.0-52.0); Hemoglobin 9.5 GM/DL (14.0-18.0); Immature Granulocytes % 0.3 %; Immature Granulocytes Absolute 0.02 #; Lymphocytes # 1.7 10*3/uL (1.4-4.0); Lymphocytes % 23.7 % (21.2-54.2); Mean Corpuscular HGB Conc 31.4 GM/DL (32-36); Mean Corpuscular Volume 87.8 FL (87-102); Mean Platelet Volume 10.8 FL (9.6-12.0); Monocytes % 13.4 % (1.7-12.7); NRBC # 0.02 10*3/uL; Platelet Count 108 T/CUMM (130-400); Red Blood Count 3.45 MC/CUMM (3.8-5.5); Red Cell Distribution Width 17.4 % (9.3-17.3)
[2019-08-01 00:07] LABS: Albumin 3.4 G/DL (3.4-5.0); Bilirubin,Total 0.8 MG/DL (0.2-1.0); Calcium 7.4 MG/DL (8.5-10.1); Osmolality,Calculated 287.5 MOS/KG (273-304)
[2019-08-01] MEDS ORDERED: hydrALAZINE 20 MG/1 ML VIAL IV STA (00:16)
[2019-08-01] MEDS ORDERED: LABETALOL 20 MG/4 ML SYRINGE IV STA (00:16)
[2019-08-01] MEDS ORDERED: hydrALAZINE 20 MG/1 ML VIAL ONE (00:17)
[2019-08-01] MEDS ORDERED: PROMETHAZINE 25 MG/1 ML VIAL IM PRN (01:01)
[2019-08-01] MEDS ORDERED: LORazepam 2 MG/1 ML VIAL IV STA (01:10)
[2019-08-01] MEDS ORDERED: ENOXAPARIN 80 MG/0.8 ML SYRINGE SUBCUT SCH (04:00)
[2019-08-01] MEDS: hydrALAZINE 20 MG/1 ML VIAL IV PRN ×3 (04:02→15:05)
[2019-08-01] MEDS: MORPHINE 4 MG/1 ML VIAL IV PRN ×3 (04:02→20:47)
[2019-08-01] MEDS ORDERED: diphenhydrAMINE CAP 25 MG CAPSULE PO PRN (05:28)
[2019-08-01] MEDS: NITROGLYCERIN 2% OINT 1 INCH/GM PACK TOP SCH ×2 (05:40→13:07)
[2019-08-01] MEDS ORDERED: RANOLAZINE 500 MG TABLET PO SCH (09:00)
[2019-08-01] MEDS ORDERED: EPOETIN ALFA 2,000 UNIT/1 ML VIAL IV PRN (09:04)
[2019-08-01] MEDS ORDERED: NITROGLYCERIN SL 0.4 MG TABLET SL ONE (10:00)
[2019-08-01] MEDS ORDERED: ALUM/MAG/SIMETH/LIDO VISC 1:1 30 ML BOTTLE PO ONE (10:20)
[2019-08-01] MEDS ORDERED: LORazepam 2 MG/1 ML VIAL IV ONE (10:20)
[2019-08-01] MEDS ORDERED: NITROGLYCERIN SL 0.4 MG TABLET SL PRN (10:49)
[2019-08-01] MEDS ORDERED: diphenhydrAMINE 50 MG/1 ML VIAL IV ONE (10:57)
[2019-08-01] MEDS ORDERED: diphenhydrAMINE 50 MG/1 ML VIAL ONE (10:59)
[2019-08-01] MEDS: SEVELAMER CARBONATE 800 MG TABLET PO SCH ×3 (12:57→16:53)
[2019-08-01] MEDS: carvediloL 25 MG TABLET PO SCH ×2 (12:57→16:53)
[2019-08-01] MEDS: ASPIRIN EC 81 MG TABLET PO SCH (13:06)
[2019-08-01] MEDS: ASCORBIC ACID 500 MG TABLET PO SCH (13:07)
[2019-08-01] MEDS: ROSUVASTATIN 20 MG TABLET PO SCH (20:47)
[2019-08-01] MEDS: LOSARTAN 25 MG TABLET PO SCH (20:47)
[2019-08-01] MEDS: ISOSORBIDE DINITRATE 20 MG TABLET PO SCH (20:47)
[2019-08-02 09:37] LABS: Basophils % 0.7 % (0.0-0.8); Eosinophils # 0.3 10*3/uL (0.0-0.87); Eosinophils % 5.3 % (0.00-10.9); Hematocrit 26.1 VOL% (42.0-52.0); Hemoglobin 8.1 GM/DL (14.0-18.0); Immature Granulocytes % 0.5 %; Immature Granulocytes Absolute 0.03 #; Lymphocytes # 0.9 10*3/uL (1.4-4.0); Lymphocytes % 15.9 % (21.2-54.2); Mean Corpuscular Volume 88.5 FL (87-102); Mean Platelet Volume 10.5 FL (9.6-12.0); Monocytes % 13.6 % (1.7-12.7); Platelet Count 95 T/CUMM (130-400); Red Blood Count 2.95 MC/CUMM (3.8-5.5); Red Cell Distribution Width 17.6 % (9.3-17.3); White Blood Count 5.7 T/CUMM (4-12)
[2019-08-02 09:42] LABS: INR 1.2; PT Patient Result 13.2 SECS (9.6-12.2)
[2019-08-02] MEDS: SEVELAMER CARBONATE 800 MG TABLET PO SCH ×3 (09:52→16:59)
[2019-08-02] MEDS: carvediloL 25 MG TABLET PO SCH ×2 (09:53→16:59)
[2019-08-02] MEDS: LOSARTAN 25 MG TABLET PO SCH ×2 (09:54→21:22)
[2019-08-02] MEDS: ISOSORBIDE DINITRATE 20 MG TABLET PO SCH ×3 (09:55→21:22)
[2019-08-02 10:01] LABS: Calcium 7.4 MG/DL (8.5-10.1); Osmolality,Calculated 292.7 MOS/KG (273-304); Total Protein 6.4 G/DL (6.4-8.3)
[2019-08-02 10:07] LABS: Hypochromasia 1+; Ovalocytes Slight; Platelet Estimate Decreased
[2019-08-02] MEDS: ASPIRIN EC 81 MG TABLET PO SCH (11:13)
[2019-08-02] MEDS: ASCORBIC ACID 500 MG TABLET PO SCH (11:14)
[2019-08-02] MEDS: FAMOTIDINE 20 MG/2 ML VIAL IV SCH (13:35)
[2019-08-02] MEDS: ROSUVASTATIN 20 MG TABLET PO SCH (21:22)
[2019-08-03] MEDS ORDERED: SODIUM CHLORIDE 0.9% 250 ML IV SCH (08:00)
[2019-08-03] MEDS: ISOSORBIDE DINITRATE 20 MG TABLET PO SCH ×3 (09:42→21:21)
[2019-08-03] MEDS: ASPIRIN EC 81 MG TABLET PO SCH (09:42)
[2019-08-03] MEDS: ASCORBIC ACID 500 MG TABLET PO SCH (09:42)
[2019-08-03] MEDS: LOSARTAN 50 MG TABLET PO SCH (09:42)
[2019-08-03] MEDS: carvediloL 25 MG TABLET PO SCH ×2 (09:43→17:05)
[2019-08-03] MEDS ORDERED: LIDOCAINE 2% 5 ML VIAL ONE (10:00)
[2019-08-03] MEDS ORDERED: PROPOFOL 200 MG/20 ML VIAL IV ONE (10:00)
[2019-08-03] MEDS ORDERED: ETOMIDATE 20 MG/10 ML VIAL IV ONE (10:00)
[2019-08-03] MEDS ORDERED: diphenhydrAMINE 50 MG/1 ML VIAL ONE (12:04)
[2019-08-03] MEDS ORDERED: diphenhydrAMINE 50 MG/1 ML VIAL IM ONE (12:05)
[2019-08-03] MEDS ORDERED: diphenhydrAMINE 50 MG/1 ML VIAL IV ONE (12:05)
[2019-08-03] MEDS: SEVELAMER CARBONATE 800 MG TABLET PO SCH ×3 (12:44→17:05)
[2019-08-03] MEDS: FAMOTIDINE 20 MG/2 ML VIAL IV SCH (13:15)
[2019-08-03] MEDS: ROSUVASTATIN 20 MG TABLET PO SCH (21:21)
[2019-08-04] MEDS: ASPIRIN EC 81 MG TABLET PO SCH (09:42)
[2019-08-04] MEDS: ASCORBIC ACID 500 MG TABLET PO SCH (09:42)
[2019-08-04] MEDS: SEVELAMER CARBONATE 800 MG TABLET PO SCH ×2 (09:42→13:47)
[2019-08-04] MEDS ORDERED: EPOETIN ALFA 2,000 UNIT/1 ML VIAL IV ONE (10:30)
[2019-08-04] MEDS: ISOSORBIDE DINITRATE 20 MG TABLET PO SCH ×2 (13:48→15:06)
[2019-08-04] MEDS: LOSARTAN 50 MG TABLET PO SCH (13:48)
[2019-08-04] MEDS: carvediloL 25 MG TABLET PO SCH (13:48)
[2019-08-04] MEDS: FAMOTIDINE 20 MG/2 ML VIAL IV SCH (13:59)
[2019-08-04 16:39] VITALS: BP 147/83
== END 2019-08-04 16:59 | disposition home or self-care (01) ==
LOC: EDBD → EDUNIT# → N.EDINP 23:20 → N.ED 23:20 → SUATTDRO 08-01 00:51 → N.TELES 08-01 02:12
PROVIDERS: ADMIT Internal Medicine; ATTEND Emergency Medicine

== ENCOUNTER 2019-09-03 23:12 | Inpatient (IN) ==
[2019-09-03] MEDS ORDERED: MORPHINE 4 MG/1 ML VIAL IV STA (23:49)
[2019-09-03] MEDS ORDERED: PROMETHAZINE INJ 12.5 MG in SODIUM CHLORIDE 0.9% 50 ML IV STA (23:50)
[2019-09-03] MEDS ORDERED: FAMOTIDINE 20 MG/2 ML VIAL IV STA (23:52)
[2019-09-04] MEDS ORDERED: PROMETHAZINE 25 MG/1 ML VIAL ONE (00:09)
[2019-09-04 00:25] LABS: INR 1.2; PT Patient Result 12.8 SECS (9.6-12.2); Partial Thromboplastin Time 29.9 SECS (20.8-36.0)
[2019-09-04 00:33] LABS: Basophils # 0.1 10*3/uL (0.0-0.2); Eosinophils # 0.2 10*3/uL (0.0-0.87); Hematocrit 32.3 VOL% (42.0-52.0); Immature Granulocytes % 0.8 %; Immature Granulocytes Absolute 0.05 #; Lymphocytes # 1.1 10*3/uL (1.4-4.0); Lymphocytes % 18.9 % (21.2-54.2); Mean Corpuscular Volume 88.5 FL (87-102); Mean Platelet Volume 10.1 FL (9.6-12.0); Monocytes % 19.4 % (1.7-12.7); Neutrophils % 56.9 % (38.7-73.9); Platelet Count 138 T/CUMM (130-400); Red Blood Count 3.65 MC/CUMM (3.8-5.5); Red Cell Distribution Width 17.9 % (9.3-17.3)
[2019-09-04 00:37] LABS: Albumin 3.2 G/DL (3.4-5.0); Bilirubin,Total 0.9 MG/DL (0.2-1.0); Calcium 7.1 MG/DL (8.5-10.1); Osmolality,Calculated 282.4 MOS/KG (273-304); Total Protein 7.1 G/DL (6.4-8.3)
[2019-09-04] MEDS ORDERED: ASPIRIN CHEW 81 MG TABLET PO STA (00:45)
[2019-09-04 01:02] LABS: Band Neutrophils 2 % (0-10); Eosinophils 2 % (0-10); Lymphocytes 18 % (20-55); Segmented Neutrophils 62 % (50-85); Total Cells Counted 100
[2019-09-04 01:04] LABS: Hypochromasia 1+; Platelet Estimate Normal; Polychromasia Few
[2019-09-04 01:05] LABS: Ovalocytes 1+
[2019-09-04] MEDS ORDERED: PROMETHAZINE 25 MG/1 ML VIAL IM PRN (01:17)
[2019-09-04] MEDS ORDERED: NICOTINE 21 MG/24 HR PATCH TRANSDERM PRN (01:17)
[2019-09-04 01:42] LABS: Risk Ratio 3.9; Thyroid Stimulating Hormone 4.05 uIU/ml (0.358-3.74); VLDL CHOLESTEROL 25.6 MG/DL
[2019-09-04] MEDS ORDERED: HEPARIN 5,000 UNIT/1 ML VIAL IV ONE (01:52)
[2019-09-04] MEDS: MORPHINE 4 MG/1 ML VIAL IV PRN ×3 (03:16→18:05)
[2019-09-04] MEDS: HEPARIN DRIP 25,000 UNITS/500 ML PREMIX IV SCH (03:21)
[2019-09-04] MEDS ORDERED: diphenhydrAMINE CAP 25 MG CAPSULE PO PRN (04:08)
[2019-09-04] MEDS ORDERED: CLOPIDOGREL 300 MG TABLET PO ONE (05:36)
[2019-09-04] MEDS ORDERED: MAGNESIUM SULF RIDER 2 GM in PREMIX 1 EACH IV PRN (07:30)
[2019-09-04] MEDS ORDERED: MAGNESIUM SULF RIDER 4 GM in PREMIX 1 EACH IV PRN (07:30)
[2019-09-04] MEDS: LOSARTAN 50 MG TABLET PO SCH (08:40)
[2019-09-04] MEDS: ASPIRIN EC 81 MG TABLET PO SCH (08:54)
[2019-09-04] MEDS: ISOSORBIDE DINITRATE 20 MG TABLET PO SCH ×3 (08:54→21:47)
[2019-09-04] MEDS: ASCORBIC ACID 500 MG TABLET PO SCH (08:54)
[2019-09-04] MEDS: carvediloL 25 MG TABLET PO SCH ×2 (08:54→17:05)
[2019-09-04] MEDS ORDERED: METOPROLOL TARTRATE 5 MG/5 ML VIAL IV ONE (11:15)
[2019-09-04] MEDS ORDERED: NITROGLYCERIN SL 0.4 MG TABLET SL PRN (12:01)
[2019-09-04] MEDS: ROSUVASTATIN 20 MG TABLET PO SCH (21:47)
[2019-09-04] MEDS ORDERED: HEPARIN 5,000 UNIT/1 ML VIAL IV PRN (22:57)
[2019-09-05] MEDS: HEPARIN DRIP 25,000 UNITS/500 ML PREMIX IV SCH (06:08)
[2019-09-05 07:31] LABS: Basophils # 0.1 10*3/uL (0.0-0.2); Basophils % 1.3 % (0.0-0.8); Eosinophils # 0.2 10*3/uL (0.0-0.87); Hematocrit 31.6 VOL% (42.0-52.0); Hemoglobin 9.6 GM/DL (14.0-18.0); Immature Granulocytes % 0.3 %; Immature Granulocytes Absolute 0.01 #; Lymphocytes # 1.1 10*3/uL (1.4-4.0); Lymphocytes % 27.3 % (21.2-54.2); Mean Corpuscular HGB Conc 30.4 GM/DL (32-36); Mean Corpuscular Volume 88.3 FL (87-102); Mean Platelet Volume 9.9 FL (9.6-12.0); Monocytes % 16.3 % (1.7-12.7); Neutrophils % 48.8 % (38.7-73.9); Platelet Count 129 T/CUMM (130-400); Red Blood Count 3.58 MC/CUMM (3.8-5.5); Red Cell Distribution Width 17.7 % (9.3-17.3)
[2019-09-05 07:52] LABS: Calcium 7.2 MG/DL (8.5-10.1); Osmolality,Calculated 283.8 MOS/KG (273-304)
[2019-09-05 07:59] LABS: Anisocytosis 1+; Eosinophils 5 % (0-10); Hypochromasia 1+; Lymphocytes 32 % (20-55); Microcytosis 1+; Ovalocytes Few; Segmented Neutrophils 53 % (50-85); Target Cells Slight; Tear Drop Cells Slight; Total Cells Counted 100
[2019-09-05 08:00] LABS: Platelet Estimate Adequate; Polychromasia Slight
[2019-09-05] MEDS: LOSARTAN 50 MG TABLET PO SCH (09:01)
[2019-09-05] MEDS: ISOSORBIDE DINITRATE 20 MG TABLET PO SCH ×3 (09:01→21:33)
[2019-09-05] MEDS: carvediloL 25 MG TABLET PO SCH ×2 (09:01→17:22)
[2019-09-05] MEDS: diphenhydrAMINE 50 MG/1 ML VIAL IV SCH ×3 (09:01→21:30)
[2019-09-05] MEDS: ASPIRIN EC 81 MG TABLET PO SCH (09:01)
[2019-09-05] MEDS: ASCORBIC ACID 500 MG TABLET PO SCH (09:01)
[2019-09-05] MEDS: methylPREDNISolone SOD SUC 125 MG/2 ML VIAL IV SCH ×2 (09:02→15:57)
[2019-09-05] MEDS: MORPHINE 4 MG/1 ML VIAL IV PRN ×2 (10:38→16:12)
[2019-09-05] MEDS: ROSUVASTATIN 20 MG TABLET PO SCH (21:33)
[2019-09-06] MEDS: MORPHINE 4 MG/1 ML VIAL IV PRN ×3 (01:37→17:07)
[2019-09-06] MEDS: diphenhydrAMINE 50 MG/1 ML VIAL IV SCH ×4 (03:22→20:41)
[2019-09-06 04:25] LABS: Hemoglobin 8.7 GM/DL (14.0-18.0); Immature Granulocytes % 1.3 %; Immature Granulocytes Absolute 0.06 #; Lymphocytes # 0.7 10*3/uL (1.4-4.0); Lymphocytes % 15.8 % (21.2-54.2); Mean Corpuscular HGB Conc 31.1 GM/DL (32-36); Mean Platelet Volume 10.9 FL (9.6-12.0); Monocytes % 10.2 % (1.7-12.7); Neutrophils % 72.7 % (38.7-73.9); Platelet Count 140 T/CUMM (130-400); Red Blood Count 3.22 MC/CUMM (3.8-5.5); Red Cell Distribution Width 17.6 % (9.3-17.3); White Blood Count 4.6 T/CUMM (4-12)
[2019-09-06 04:42] LABS: Calcium 6.7 MG/DL (8.5-10.1); Osmolality,Calculated 285.2 MOS/KG (273-304)
[2019-09-06 10:11] LABS: Hepatitis B Core IgM Quant 0.06 Index; Hepatitis B Surface Ag Quant < 0.10 Index; Hepatitis B Surface Ag Result Negative (Negative); Hepatitis C Virus Ab Quant 0.15 Index; Hepatitis C Virus Ab Result Negative (Negative)
[2019-09-06] MEDS: carvediloL 25 MG TABLET PO SCH ×2 (16:34→17:02)
[2019-09-06] MEDS: ISOSORBIDE DINITRATE 20 MG TABLET PO SCH ×3 (16:35→20:41)
[2019-09-06] MEDS: LOSARTAN 50 MG TABLET PO SCH (17:01)
[2019-09-06] MEDS: ASCORBIC ACID 500 MG TABLET PO SCH (17:01)
[2019-09-06] MEDS: ASPIRIN EC 81 MG TABLET PO SCH (17:02)
[2019-09-06] MEDS: ROSUVASTATIN 20 MG TABLET PO SCH (20:41)
[2019-09-07] MEDS: diphenhydrAMINE 50 MG/1 ML VIAL IV SCH ×4 (02:22→20:38)
[2019-09-07] MEDS: MORPHINE 4 MG/1 ML VIAL IV PRN ×3 (04:20→21:00)
[2019-09-07 04:36] LABS: Basophils % 0.4 % (0.0-0.8); Eosinophils % 0.6 % (0.00-10.9); Hematocrit 31.3 VOL% (42.0-52.0); Hemoglobin 9.6 GM/DL (14.0-18.0); Immature Granulocytes % 0.4 %; Immature Granulocytes Absolute 0.02 #; Lymphocytes # 1.3 10*3/uL (1.4-4.0); Mean Corpuscular HGB Conc 30.7 GM/DL (32-36); Mean Corpuscular Volume 88.2 FL (87-102); Mean Platelet Volume 10.1 FL (9.6-12.0); Neutrophils % 60.6 % (38.7-73.9); Platelet Count 145 T/CUMM (130-400); Red Blood Count 3.55 MC/CUMM (3.8-5.5); Red Cell Distribution Width 17.8 % (9.3-17.3); White Blood Count 5.3 T/CUMM (4-12)
[2019-09-07 05:14] LABS: Osmolality,Calculated 278.1 MOS/KG (273-304)
[2019-09-07] MEDS: ASCORBIC ACID 500 MG TABLET PO SCH (08:59)
[2019-09-07] MEDS: LOSARTAN 50 MG TABLET PO SCH (09:00)
[2019-09-07] MEDS: ISOSORBIDE DINITRATE 20 MG TABLET PO SCH ×3 (09:00→20:38)
[2019-09-07] MEDS: ASPIRIN EC 81 MG TABLET PO SCH (09:00)
[2019-09-07] MEDS: carvediloL 25 MG TABLET PO SCH ×2 (09:00→17:14)
[2019-09-07] MEDS ORDERED: methylPREDNISolone SOD SUC 125 MG/2 ML VIAL IV ONE (13:40)
[2019-09-07] MEDS: PROMETHAZINE INJ 12.5 MG in SODIUM CHLORIDE 0.9% 50 ML IV PRN (17:14)
[2019-09-07] MEDS: ROSUVASTATIN 20 MG TABLET PO SCH (20:38)
[2019-09-08] MEDS: MORPHINE 4 MG/1 ML VIAL IV PRN ×3 (02:46→21:55)
[2019-09-08] MEDS: diphenhydrAMINE 50 MG/1 ML VIAL IV SCH ×3 (02:48→16:46)
[2019-09-08 05:04] LABS: Hemoglobin 9.3 GM/DL (14.0-18.0); Immature Granulocytes % 0.4 %; Immature Granulocytes Absolute 0.02 #; Lymphocytes # 0.5 10*3/uL (1.4-4.0); Lymphocytes % 9.1 % (21.2-54.2); Mean Corpuscular Volume 87.2 FL (87-102); Mean Platelet Volume 10.4 FL (9.6-12.0); Neutrophils % 85.5 % (38.7-73.9); Platelet Count 135 T/CUMM (130-400); Red Blood Count 3.44 MC/CUMM (3.8-5.5); Red Cell Distribution Width 17.7 % (9.3-17.3); White Blood Count 5.2 T/CUMM (4-12)
[2019-09-08 05:22] LABS: Albumin 2.9 G/DL (3.4-5.0); Bilirubin,Total 0.6 MG/DL (0.2-1.0); Calcium 6.9 MG/DL (8.5-10.1); Osmolality,Calculated 285.1 MOS/KG (273-304); Total Protein 6.4 G/DL (6.4-8.3)
[2019-09-08] MEDS ORDERED: SODIUM POLYSTYRENE SULFATE 15 GM/60 ML BOTTLE PO STA (05:32)
[2019-09-08] MEDS: ASPIRIN EC 81 MG TABLET PO SCH (12:26)
[2019-09-08] MEDS: ISOSORBIDE DINITRATE 20 MG TABLET PO SCH ×3 (12:26→21:55)
[2019-09-08] MEDS: ASCORBIC ACID 500 MG TABLET PO SCH (12:26)
[2019-09-08] MEDS: LOSARTAN 50 MG TABLET PO SCH (12:26)
[2019-09-08] MEDS: carvediloL 25 MG TABLET PO SCH ×2 (12:27→16:45)
[2019-09-08] MEDS: PROMETHAZINE INJ 12.5 MG in SODIUM CHLORIDE 0.9% 50 ML IV PRN (14:13)
[2019-09-08] MEDS: ROSUVASTATIN 20 MG TABLET PO SCH (21:55)
[2019-09-09] MEDS: PROMETHAZINE INJ 12.5 MG in SODIUM CHLORIDE 0.9% 50 ML IV PRN (00:02)
[2019-09-09] MEDS: diphenhydrAMINE 50 MG/1 ML VIAL IV SCH ×5 (03:31→21:00)
[2019-09-09 04:09] LABS: Basophils % 0.3 % (0.0-0.8); Eosinophils # 0.1 10*3/uL (0.0-0.87); Hematocrit 31.1 VOL% (42.0-52.0); Hemoglobin 9.2 GM/DL (14.0-18.0); Immature Granulocytes % 0.3 %; Immature Granulocytes Absolute 0.02 #; Lymphocytes # 1.6 10*3/uL (1.4-4.0); Lymphocytes % 26.7 % (21.2-54.2); Mean Corpuscular HGB Conc 29.6 GM/DL (32-36); Mean Corpuscular Volume 89.6 FL (87-102); Mean Platelet Volume 9.8 FL (9.6-12.0); Neutrophils % 58.7 % (38.7-73.9); Platelet Count 125 T/CUMM (130-400); Red Blood Count 3.47 MC/CUMM (3.8-5.5); Red Cell Distribution Width 17.9 % (9.3-17.3); White Blood Count 5.9 T/CUMM (4-12)
[2019-09-09 04:24] LABS: Calcium 7.2 MG/DL (8.5-10.1)
[2019-09-09] MEDS: MORPHINE 4 MG/1 ML VIAL IV PRN ×3 (05:38→21:03)
[2019-09-09] MEDS: ASPIRIN EC 81 MG TABLET PO SCH (09:48)
[2019-09-09] MEDS: carvediloL 25 MG TABLET PO SCH ×2 (09:48→17:25)
[2019-09-09] MEDS: ISOSORBIDE DINITRATE 20 MG TABLET PO SCH ×3 (09:49→21:00)
[2019-09-09] MEDS: LOSARTAN 50 MG TABLET PO SCH (09:49)
[2019-09-09] MEDS: ASCORBIC ACID 500 MG TABLET PO SCH (09:49)
[2019-09-09 17:12] LABS: Neutrophils,Peritoneal Fluid 11 %
[2019-09-09 17:14] LABS: RBC,Peritoneal Fluid 298 T/CUMM
[2019-09-09] MEDS: ROSUVASTATIN 20 MG TABLET PO SCH (21:00)
[2019-09-10] MEDS: diphenhydrAMINE 50 MG/1 ML VIAL IV SCH ×4 (02:45→23:34)
[2019-09-10] MEDS: MORPHINE 4 MG/1 ML VIAL IV PRN ×2 (07:59→16:21)
[2019-09-10 10:42] LABS: Calcium 7.9 MG/DL (8.5-10.1); Osmolality,Calculated 282.7 MOS/KG (273-304)
[2019-09-10] MEDS: ASPIRIN EC 81 MG TABLET PO SCH (13:32)
[2019-09-10] MEDS: ASCORBIC ACID 500 MG TABLET PO SCH (13:32)
[2019-09-10] MEDS: LOSARTAN 50 MG TABLET PO SCH (13:32)
[2019-09-10] MEDS: carvediloL 25 MG TABLET PO SCH ×2 (13:33→16:21)
[2019-09-10] MEDS: ISOSORBIDE DINITRATE 20 MG TABLET PO SCH ×3 (13:33→23:35)
[2019-09-10] MEDS: LEVOFLOXACIN INJ 500 MG in PREMIX 1 EACH IV SCH (14:44)
[2019-09-10] MEDS: PROMETHAZINE INJ 12.5 MG in SODIUM CHLORIDE 0.9% 50 ML IV PRN (22:56)
[2019-09-10] MEDS: ROSUVASTATIN 20 MG TABLET PO SCH (23:35)
[2019-09-11] MEDS: diphenhydrAMINE 50 MG/1 ML VIAL IV SCH ×4 (03:47→21:33)
[2019-09-11 05:28] LABS: Basophils % 0.7 % (0.0-0.8); Eosinophils # 0.3 10*3/uL (0.0-0.87); Eosinophils % 4.6 % (0.00-10.9); Hematocrit 32.2 VOL% (42.0-52.0); Hemoglobin 9.7 GM/DL (14.0-18.0); Immature Granulocytes % 0.4 %; Immature Granulocytes Absolute 0.02 #; Lymphocytes % 18.5 % (21.2-54.2); Mean Corpuscular HGB Conc 30.1 GM/DL (32-36); Mean Corpuscular Volume 89.2 FL (87-102); Mean Platelet Volume 9.7 FL (9.6-12.0); Monocytes % 14.7 % (1.7-12.7); Neutrophils % 61.1 % (38.7-73.9); Platelet Count 135 T/CUMM (130-400); Red Blood Count 3.61 MC/CUMM (3.8-5.5); Red Cell Distribution Width 17.9 % (9.3-17.3); White Blood Count 5.6 T/CUMM (4-12)
[2019-09-11 05:54] LABS: Calcium 7.4 MG/DL (8.5-10.1); Osmolality,Calculated 280.8 MOS/KG (273-304)
[2019-09-11] MEDS: MORPHINE 4 MG/1 ML VIAL IV PRN (06:00)
[2019-09-11] MEDS: LOSARTAN 50 MG TABLET PO SCH (09:11)
[2019-09-11] MEDS: ASPIRIN EC 81 MG TABLET PO SCH (09:11)
[2019-09-11] MEDS: ISOSORBIDE DINITRATE 20 MG TABLET PO SCH ×3 (09:11→21:32)
[2019-09-11] MEDS: DOCUSATE SODIUM 100 MG CAPSULE PO SCH ×2 (09:11→21:32)
[2019-09-11] MEDS: ASCORBIC ACID 500 MG TABLET PO SCH (09:11)
[2019-09-11] MEDS: POLYETHYLENE GLYCOL POWDER 17 GM PACK PO SCH (09:12)
[2019-09-11] MEDS: carvediloL 25 MG TABLET PO SCH ×2 (09:12→17:01)
[2019-09-11] MEDS: ROSUVASTATIN 20 MG TABLET PO SCH (21:32)
[2019-09-12] MEDS: PROMETHAZINE INJ 12.5 MG in SODIUM CHLORIDE 0.9% 50 ML IV PRN (01:45)
[2019-09-12] MEDS: diphenhydrAMINE 50 MG/1 ML VIAL IV SCH ×4 (03:47→21:03)
[2019-09-12 05:15] LABS: Eosinophils # 0.2 10*3/uL (0.0-0.87); Eosinophils % 4.8 % (0.00-10.9); Hematocrit 31.4 VOL% (42.0-52.0); Hemoglobin 9.6 GM/DL (14.0-18.0); Immature Granulocytes % 0.2 %; Immature Granulocytes Absolute 0.01 #; Lymphocytes # 1.1 10*3/uL (1.4-4.0); Lymphocytes % 26.6 % (21.2-54.2); Mean Corpuscular HGB Conc 30.6 GM/DL (32-36); Mean Corpuscular Volume 87.7 FL (87-102); Mean Platelet Volume 9.6 FL (9.6-12.0); Monocytes % 12.6 % (1.7-12.7); Neutrophils % 54.8 % (38.7-73.9); Platelet Count 112 T/CUMM (130-400); Red Blood Count 3.58 MC/CUMM (3.8-5.5); Red Cell Distribution Width 17.7 % (9.3-17.3); White Blood Count 4.1 T/CUMM (4-12)
[2019-09-12 05:28] LABS: Calcium 7.4 MG/DL (8.5-10.1); Osmolality,Calculated 288.7 MOS/KG (273-304)
[2019-09-12] MEDS ORDERED: ALBUMIN 25% 50 GM in PREMIX 1 EACH IV ONE (09:00)
[2019-09-12] MEDS: ASCORBIC ACID 500 MG TABLET PO SCH (09:49)
[2019-09-12] MEDS: LOSARTAN 50 MG TABLET PO SCH (09:49)
[2019-09-12] MEDS: ASPIRIN EC 81 MG TABLET PO SCH (09:49)
[2019-09-12] MEDS: ISOSORBIDE DINITRATE 20 MG TABLET PO SCH ×3 (09:50→21:03)
[2019-09-12] MEDS: DOCUSATE SODIUM 100 MG CAPSULE PO SCH ×2 (09:50→21:03)
[2019-09-12] MEDS: POLYETHYLENE GLYCOL POWDER 17 GM PACK PO SCH (09:50)
[2019-09-12] MEDS: carvediloL 25 MG TABLET PO SCH ×2 (09:50→16:37)
[2019-09-12] MEDS: LEVOFLOXACIN INJ 500 MG in PREMIX 1 EACH IV SCH (11:10)
[2019-09-12] MEDS: ROSUVASTATIN 20 MG TABLET PO SCH (21:03)
[2019-09-13] MEDS: PROMETHAZINE INJ 12.5 MG in SODIUM CHLORIDE 0.9% 50 ML IV PRN ×2 (02:30→16:42)
[2019-09-13] MEDS: diphenhydrAMINE 50 MG/1 ML VIAL IV SCH ×5 (03:42→21:43)
[2019-09-13] MEDS ORDERED: VANCOMYCIN INJ 1,000 MG in SODIUM CHLORIDE 0.9% 250 ML IV SCH (10:00)
[2019-09-13] MEDS ORDERED: VANCOMYCIN INJ 500 MG in SODIUM CHLORIDE 0.9% 100 ML IV PRN (10:48)
[2019-09-13] MEDS: DOCUSATE SODIUM 100 MG CAPSULE PO SCH ×2 (12:09→21:42)
[2019-09-13] MEDS: POLYETHYLENE GLYCOL POWDER 17 GM PACK PO SCH (12:10)
[2019-09-13] MEDS: ISOSORBIDE DINITRATE 20 MG TABLET PO SCH ×3 (12:10→21:43)
[2019-09-13] MEDS: ASPIRIN EC 81 MG TABLET PO SCH (12:10)
[2019-09-13] MEDS: ASCORBIC ACID 500 MG TABLET PO SCH (12:10)
[2019-09-13] MEDS: LOSARTAN 50 MG TABLET PO SCH (12:10)
[2019-09-13] MEDS: carvediloL 25 MG TABLET PO SCH ×2 (12:11→17:27)
[2019-09-13] MEDS ORDERED: ALUM/MAG/SIMETH/LIDO VISC 1:1 30 ML BOTTLE PO ONE (13:29)
[2019-09-13] MEDS ORDERED: VANCOMYCIN INJ 1,500 MG in SODIUM CHLORIDE 0.9% 500 ML IV ONE (14:00)
[2019-09-13] MEDS: ROSUVASTATIN 20 MG TABLET PO SCH (21:42)
[2019-09-13] MEDS: MORPHINE 4 MG/1 ML VIAL IV PRN (23:41)
[2019-09-14] MEDS: MORPHINE 4 MG/1 ML VIAL IV PRN (03:34)
[2019-09-14] MEDS: diphenhydrAMINE 50 MG/1 ML VIAL IV SCH ×2 (03:35→10:01)
[2019-09-14 06:00] LABS: Calcium 7.8 MG/DL (8.5-10.1)
[2019-09-14 08:40] VITALS: BP 148/82
[2019-09-14] MEDS: POLYETHYLENE GLYCOL POWDER 17 GM PACK PO SCH (09:59)
[2019-09-14] MEDS: LOSARTAN 50 MG TABLET PO SCH (09:59)
[2019-09-14] MEDS: ASCORBIC ACID 500 MG TABLET PO SCH (09:59)
[2019-09-14] MEDS: ISOSORBIDE DINITRATE 20 MG TABLET PO SCH (09:59)
[2019-09-14] MEDS: carvediloL 25 MG TABLET PO SCH (09:59)
[2019-09-14] MEDS: DOCUSATE SODIUM 100 MG CAPSULE PO SCH (09:59)
[2019-09-14] MEDS: ASPIRIN EC 81 MG TABLET PO SCH (10:00)
== END 2019-09-14 12:10 | disposition home health service (06) | DRG 640 ==
LOC: EDUNIT# → EDBD → N.EDINP 23:12 → N.ED 23:12 → N.EDINP 09-04 02:02 → N.TELEN 09-04 02:49 → SUATTDRO 09-04 17:01
PROVIDERS: ADMIT Hospitalist; ATTEND Internal Medicine

== ENCOUNTER 2019-09-23 23:36 | Inpatient (IN) ==
[2019-09-23] MEDS ORDERED: ASPIRIN 325 MG TABLET PO STA (23:56)
[2019-09-23] MEDS ORDERED: MORPHINE 4 MG/1 ML VIAL IV STA (23:56)
[2019-09-23] MEDS ORDERED: ALUM/MAG/SIMETH/LIDO VISC 1:1 30 ML BOTTLE PO STA (23:56)
[2019-09-23] MEDS ORDERED: PROMETHAZINE 25 MG/1 ML VIAL IM STA (23:58)
[2019-09-24 00:02] LABS: Basophils # 0.1 10*3/uL (0.0-0.2); Basophils % 1.2 % (0.0-0.8); Eosinophils # 0.3 10*3/uL (0.0-0.87); Eosinophils % 4.3 % (0.00-10.9); Hematocrit 30.8 VOL% (42.0-52.0); Hemoglobin 9.5 GM/DL (14.0-18.0); Immature Granulocytes % 0.3 %; Immature Granulocytes Absolute 0.02 #; Lymphocytes # 1.4 10*3/uL (1.4-4.0); Lymphocytes % 23.7 % (21.2-54.2); Mean Corpuscular HGB Conc 30.8 GM/DL (32-36); Mean Corpuscular Volume 86.3 FL (87-102); Mean Platelet Volume 9.7 FL (9.6-12.0); Monocytes % 15.8 % (1.7-12.7); Neutrophils % 54.7 % (38.7-73.9); Platelet Count 121 T/CUMM (130-400); Red Blood Count 3.57 MC/CUMM (3.8-5.5); Red Cell Distribution Width 17.5 % (9.3-17.3); White Blood Count 5.8 T/CUMM (4-12)
[2019-09-24] MEDS ORDERED: VANCOMYCIN INJ 1,000 MG in SODIUM CHLORIDE 0.9% 250 ML IV STA ×2 (00:27→00:33)
[2019-09-24] MEDS ORDERED: LORazepam 2 MG/1 ML VIAL IV STA (00:31)
[2019-09-24 01:06] LABS: Bilirubin,Total 0.5 MG/DL (0.2-1.0); Osmolality,Calculated 289.5 MOS/KG (273-304); Total Protein 6.9 G/DL (6.4-8.3)
[2019-09-24 01:11] LABS: Anisocytosis 1+; Lymphocytes 26 % (20-55); Platelet Estimate Decreased; Segmented Neutrophils 59 % (50-85); Total Cells Counted 100
[2019-09-24] MEDS ORDERED: LEVOFLOXACIN INJ 500 MG in PREMIX 1 EACH IV ONE (03:00)
[2019-09-24] MEDS: MORPHINE 4 MG/1 ML VIAL IV PRN ×4 (04:55→22:33)
[2019-09-24] MEDS: ALBUTEROL/IPRATROPIUM 3 ML NEB RESP TX SCH ×3 (07:33→20:02)
[2019-09-24] MEDS: SEVELAMER CARBONATE 800 MG TABLET PO SCH ×2 (08:53→18:30)
[2019-09-24] MEDS: ENOXAPARIN 30 MG/0.3 ML SYRINGE SUBCUT SCH ×2 (08:53→09:04)
[2019-09-24] MEDS: ASCORBIC ACID 500 MG TABLET PO SCH (08:53)
[2019-09-24] MEDS: ASPIRIN EC 81 MG TABLET PO SCH (08:58)
[2019-09-24] MEDS: POLYETHYLENE GLYCOL POWDER 17 GM PACK PO SCH (09:00)
[2019-09-24] MEDS ORDERED: METOPROLOL SUCCINATE XL 50 MG TABLET PO SCH (09:00)
[2019-09-24 10:39] LABS: Basophils # 0.1 10*3/uL (0.0-0.2); Basophils % 1.2 % (0.0-0.8); Eosinophils # 0.2 10*3/uL (0.0-0.87); Hemoglobin 9.2 GM/DL (14.0-18.0); Immature Granulocytes % 0.2 %; Immature Granulocytes Absolute 0.01 #; Lymphocytes # 1.1 10*3/uL (1.4-4.0); Mean Corpuscular HGB Conc 29.7 GM/DL (32-36); Mean Corpuscular Volume 87.8 FL (87-102); Mean Platelet Volume 9.3 FL (9.6-12.0); Neutrophils % 56.6 % (38.7-73.9); Platelet Count 106 T/CUMM (130-400); Red Blood Count 3.53 MC/CUMM (3.8-5.5); Red Cell Distribution Width 17.7 % (9.3-17.3); White Blood Count 5.2 T/CUMM (4-12)
[2019-09-24 11:06] LABS: Albumin 2.9 G/DL (3.4-5.0); Osmolality,Calculated 298.1 MOS/KG (273-304); Total Protein 6.7 G/DL (6.4-8.3)
[2019-09-24 11:14] LABS: Eosinophils 3 % (0-10); Lymphocytes 24 % (20-55); Ovalocytes Slight; Polychromasia Slight; Segmented Neutrophils 60 % (50-85); Total Cells Counted 100
[2019-09-24 11:15] LABS: Hypochromasia 2+; Microcytosis 2+; Platelet Estimate Decreased
[2019-09-24] MEDS: PROMETHAZINE 25 MG/1 ML VIAL IM PRN (11:30)
[2019-09-24] MEDS: carvediloL 25 MG TABLET PO SCH ×2 (18:22→18:29)
[2019-09-24] MEDS: ROSUVASTATIN 20 MG TABLET PO SCH (21:35)
[2019-09-25] MEDS: ALBUTEROL/IPRATROPIUM 3 ML NEB RESP TX SCH ×4 (01:21→19:43)
[2019-09-25] MEDS: MORPHINE 4 MG/1 ML VIAL IV PRN ×3 (04:41→19:57)
[2019-09-25 06:22] LABS: Basophils % 0.9 % (0.0-0.8); Eosinophils # 0.2 10*3/uL (0.0-0.87); Eosinophils % 5.4 % (0.00-10.9); Hematocrit 31.2 VOL% (42.0-52.0); Hemoglobin 9.5 GM/DL (14.0-18.0); Immature Granulocytes % 0.2 %; Immature Granulocytes Absolute 0.01 #; Lymphocytes # 1.1 10*3/uL (1.4-4.0); Lymphocytes % 25.1 % (21.2-54.2); Mean Corpuscular HGB Conc 30.4 GM/DL (32-36); Mean Corpuscular Volume 86.2 FL (87-102); Mean Platelet Volume 10.2 FL (9.6-12.0); Neutrophils % 51.4 % (38.7-73.9); Platelet Count 111 T/CUMM (130-400); Red Blood Count 3.62 MC/CUMM (3.8-5.5); Red Cell Distribution Width 17.4 % (9.3-17.3); White Blood Count 4.4 T/CUMM (4-12)
[2019-09-25 06:44] LABS: Calcium 7.4 MG/DL (8.5-10.1); Osmolality,Calculated 284.5 MOS/KG (273-304)
[2019-09-25 07:43] LABS: Anisocytosis Slight; Band Neutrophils 5 % (0-10); Eosinophils 4 % (0-10); Hypochromasia Slight; Lymphocytes 28 % (20-55); Platelet Estimate Adequate; Segmented Neutrophils 46 % (50-85); Total Cells Counted 100
[2019-09-25 07:44] LABS: Macrocytosis Slight
[2019-09-25] MEDS: SEVELAMER CARBONATE 800 MG TABLET PO SCH ×2 (08:53→17:48)
[2019-09-25] MEDS: ASPIRIN EC 81 MG TABLET PO SCH (08:53)
[2019-09-25] MEDS: carvediloL 25 MG TABLET PO SCH ×2 (08:53→17:48)
[2019-09-25] MEDS: ASCORBIC ACID 500 MG TABLET PO SCH (08:53)
[2019-09-25] MEDS: ENOXAPARIN 30 MG/0.3 ML SYRINGE SUBCUT SCH (08:56)
[2019-09-25] MEDS: POLYETHYLENE GLYCOL POWDER 17 GM PACK PO SCH (08:56)
[2019-09-25] MEDS: PROMETHAZINE 25 MG/1 ML VIAL IM PRN (15:41)
[2019-09-25] MEDS: ROSUVASTATIN 20 MG TABLET PO SCH (21:43)
[2019-09-26] MEDS: ALBUTEROL/IPRATROPIUM 3 ML NEB RESP TX SCH ×4 (00:09→19:40)
[2019-09-26] MEDS: MORPHINE 4 MG/1 ML VIAL IV PRN ×3 (01:03→21:11)
[2019-09-26] MEDS: LEVOFLOXACIN INJ 250 MG in PREMIX 1 EACH IV SCH (04:11)
[2019-09-26 06:18] LABS: Basophils # 0.1 10*3/uL (0.0-0.2); Basophils % 1.3 % (0.0-0.8); Eosinophils # 0.3 10*3/uL (0.0-0.87); Eosinophils % 6.5 % (0.00-10.9); Hematocrit 34.1 VOL% (42.0-52.0); Hemoglobin 10.3 GM/DL (14.0-18.0); Immature Granulocytes % 0.2 %; Immature Granulocytes Absolute 0.01 #; Lymphocytes # 1.2 10*3/uL (1.4-4.0); Lymphocytes % 25.4 % (21.2-54.2); Mean Corpuscular HGB Conc 30.2 GM/DL (32-36); Mean Corpuscular Volume 87.4 FL (87-102); Monocytes % 14.9 % (1.7-12.7); Neutrophils % 51.7 % (38.7-73.9); Platelet Count 106 T/CUMM (130-400); Red Cell Distribution Width 17.9 % (9.3-17.3); White Blood Count 4.8 T/CUMM (4-12)
[2019-09-26 06:33] LABS: Calcium 7.3 MG/DL (8.5-10.1); Osmolality,Calculated 283.1 MOS/KG (273-304)
[2019-09-26] MEDS: SEVELAMER CARBONATE 800 MG TABLET PO SCH ×2 (08:33→16:21)
[2019-09-26] MEDS: ASPIRIN EC 81 MG TABLET PO SCH (08:33)
[2019-09-26] MEDS: ENOXAPARIN 30 MG/0.3 ML SYRINGE SUBCUT SCH (08:33)
[2019-09-26] MEDS: carvediloL 25 MG TABLET PO SCH ×2 (08:34→16:21)
[2019-09-26] MEDS: POLYETHYLENE GLYCOL POWDER 17 GM PACK PO SCH (08:34)
[2019-09-26] MEDS: ASCORBIC ACID 500 MG TABLET PO SCH (08:34)
[2019-09-26] MEDS: oxyCODONE IR 5 MG TABLET PO PRN (14:39)
[2019-09-26] MEDS: ROSUVASTATIN 20 MG TABLET PO SCH (21:10)
[2019-09-26] MEDS: PROMETHAZINE 25 MG/1 ML VIAL IM PRN (22:24)
[2019-09-27] MEDS: ALBUTEROL/IPRATROPIUM 3 ML NEB RESP TX SCH ×4 (00:55→20:25)
[2019-09-27 05:14] LABS: Eosinophils # 0.3 10*3/uL (0.0-0.87); Eosinophils % 6.2 % (0.00-10.9); Hematocrit 29.9 VOL% (42.0-52.0); Hemoglobin 9.2 GM/DL (14.0-18.0); Immature Granulocytes % 0.2 %; Immature Granulocytes Absolute 0.01 #; Lymphocytes # 1.2 10*3/uL (1.4-4.0); Lymphocytes % 29.5 % (21.2-54.2); Mean Corpuscular HGB Conc 30.8 GM/DL (32-36); Mean Corpuscular Volume 84.5 FL (87-102); Mean Platelet Volume 9.7 FL (9.6-12.0); Monocytes % 15.9 % (1.7-12.7); Neutrophils % 47.2 % (38.7-73.9); Platelet Count 91 T/CUMM (130-400); Red Blood Count 3.54 MC/CUMM (3.8-5.5); Red Cell Distribution Width 17.6 % (9.3-17.3)
[2019-09-27 05:37] LABS: Band Neutrophils 1 % (0-10); Eosinophils 7 % (0-10); Hypochromasia 1+; Lymphocytes 24 % (20-55); Nucleated Red Blood Cells 1 (0-5); Ovalocytes Slight; Platelet Estimate Decreased; Segmented Neutrophils 60 % (50-85); Total Cells Counted 100
[2019-09-27 05:59] LABS: Calcium 7.5 MG/DL (8.5-10.1); Osmolality,Calculated 289.1 MOS/KG (273-304)
[2019-09-27] MEDS: carvediloL 25 MG TABLET PO SCH ×2 (08:12→17:49)
[2019-09-27] MEDS: SEVELAMER CARBONATE 800 MG TABLET PO SCH ×2 (08:12→17:49)
[2019-09-27] MEDS: POLYETHYLENE GLYCOL POWDER 17 GM PACK PO SCH (08:12)
[2019-09-27] MEDS: ASCORBIC ACID 500 MG TABLET PO SCH (08:12)
[2019-09-27] MEDS: ASPIRIN EC 81 MG TABLET PO SCH (08:12)
[2019-09-27] MEDS: ENOXAPARIN 30 MG/0.3 ML SYRINGE SUBCUT SCH (08:12)
[2019-09-27] MEDS: oxyCODONE IR 5 MG TABLET PO PRN (15:45)
[2019-09-27] MEDS: ROSUVASTATIN 20 MG TABLET PO SCH (20:30)
[2019-09-27] MEDS: MORPHINE 4 MG/1 ML VIAL IV PRN (20:30)
[2019-09-28] MEDS: ALBUTEROL/IPRATROPIUM 3 ML NEB RESP TX SCH ×4 (00:07→19:26)
[2019-09-28] MEDS: MORPHINE 4 MG/1 ML VIAL IV PRN ×4 (03:40→23:58)
[2019-09-28] MEDS: LEVOFLOXACIN INJ 250 MG in PREMIX 1 EACH IV SCH (03:44)
[2019-09-28] MEDS: oxyCODONE IR 5 MG TABLET PO PRN ×2 (04:53→21:19)
[2019-09-28] MEDS: ENOXAPARIN 30 MG/0.3 ML SYRINGE SUBCUT SCH ×2 (09:27→09:32)
[2019-09-28] MEDS: ASCORBIC ACID 500 MG TABLET PO SCH (09:27)
[2019-09-28] MEDS: SEVELAMER CARBONATE 800 MG TABLET PO SCH ×2 (09:27→17:26)
[2019-09-28] MEDS: ASPIRIN EC 81 MG TABLET PO SCH (09:27)
[2019-09-28] MEDS: carvediloL 25 MG TABLET PO SCH ×2 (09:28→17:26)
[2019-09-28] MEDS: POLYETHYLENE GLYCOL POWDER 17 GM PACK PO SCH (09:31)
[2019-09-28 10:58] LABS: Eosinophils # 0.2 10*3/uL (0.0-0.87); Eosinophils % 4.4 % (0.00-10.9); Hematocrit 30.1 VOL% (42.0-52.0); Hemoglobin 9.2 GM/DL (14.0-18.0); Immature Granulocytes % 0.3 %; Immature Granulocytes Absolute 0.01 #; Lymphocytes # 0.9 10*3/uL (1.4-4.0); Lymphocytes % 22.6 % (21.2-54.2); Mean Corpuscular HGB Conc 30.6 GM/DL (32-36); Mean Corpuscular Volume 85.8 FL (87-102); Mean Platelet Volume 9.2 FL (9.6-12.0); Monocytes % 18.3 % (1.7-12.7); Neutrophils % 53.4 % (38.7-73.9); Platelet Count 107 T/CUMM (130-400); Red Blood Count 3.51 MC/CUMM (3.8-5.5); Red Cell Distribution Width 17.7 % (9.3-17.3); White Blood Count 3.9 T/CUMM (4-12)
[2019-09-28 11:26] LABS: Albumin 2.9 G/DL (3.4-5.0); Bilirubin,Total 0.6 MG/DL (0.2-1.0); Calcium 7.4 MG/DL (8.5-10.1); Osmolality,Calculated 285.8 MOS/KG (273-304); Total Protein 6.9 G/DL (6.4-8.3)
[2019-09-28 11:27] LABS: Eosinophils 7 % (0-10); Hypochromasia 1+; Lymphocytes 14 % (20-55); Platelet Estimate Decreased; Segmented Neutrophils 62 % (50-85); Total Cells Counted 100
[2019-09-28] MEDS: ROSUVASTATIN 20 MG TABLET PO SCH (21:20)
[2019-09-29] MEDS: ALBUTEROL/IPRATROPIUM 3 ML NEB RESP TX SCH ×5 (01:51→19:33)
[2019-09-29] MEDS: carvediloL 25 MG TABLET PO SCH ×2 (09:27→16:59)
[2019-09-29] MEDS: ENOXAPARIN 30 MG/0.3 ML SYRINGE SUBCUT SCH ×2 (09:28→09:50)
[2019-09-29] MEDS: ASPIRIN EC 81 MG TABLET PO SCH (09:28)
[2019-09-29] MEDS: MORPHINE 4 MG/1 ML VIAL IV PRN ×3 (09:41→20:35)
[2019-09-29] MEDS: SEVELAMER CARBONATE 800 MG TABLET PO SCH ×2 (09:43→16:59)
[2019-09-29] MEDS: POLYETHYLENE GLYCOL POWDER 17 GM PACK PO SCH (09:43)
[2019-09-29] MEDS: ASCORBIC ACID 500 MG TABLET PO SCH (09:43)
[2019-09-29] MEDS: SODIUM CHLORIDE 0.65% NASAL SPRAY 45 ML BOTTLE BOTH NARES PRN (16:05)
[2019-09-29] MEDS: oxyCODONE IR 5 MG TABLET PO PRN (19:52)
[2019-09-29] MEDS: ROSUVASTATIN 20 MG TABLET PO SCH (20:38)
[2019-09-30] MEDS ORDERED: diphenhydrAMINE CAP 50 MG CAPSULE PO ONE ×2 (00:12→12:10)
[2019-09-30] MEDS: ALBUTEROL/IPRATROPIUM 3 ML NEB RESP TX SCH ×4 (00:13→20:28)
[2019-09-30] MEDS: SODIUM CHLORIDE 0.65% NASAL SPRAY 45 ML BOTTLE BOTH NARES PRN ×2 (01:17→09:46)
[2019-09-30] MEDS: MORPHINE 4 MG/1 ML VIAL IV PRN ×4 (04:30→20:39)
[2019-09-30] MEDS: LEVOFLOXACIN INJ 250 MG in PREMIX 1 EACH IV SCH (04:32)
[2019-09-30] MEDS: PROMETHAZINE 25 MG/1 ML VIAL IM PRN (04:35)
[2019-09-30] MEDS: ASPIRIN EC 81 MG TABLET PO SCH (09:46)
[2019-09-30] MEDS: SEVELAMER CARBONATE 800 MG TABLET PO SCH ×2 (09:47→17:30)
[2019-09-30] MEDS: ENOXAPARIN 30 MG/0.3 ML SYRINGE SUBCUT SCH (09:47)
[2019-09-30] MEDS: carvediloL 25 MG TABLET PO SCH ×2 (09:47→17:30)
[2019-09-30] MEDS: ASCORBIC ACID 500 MG TABLET PO SCH (09:47)
[2019-09-30] MEDS: POLYETHYLENE GLYCOL POWDER 17 GM PACK PO SCH (09:48)
[2019-09-30] MEDS: ROSUVASTATIN 20 MG TABLET PO SCH (20:39)
[2019-09-30] MEDS ORDERED: ALPRAZolam 0.5 MG TABLET PO ONE (22:23)
[2019-10-01] MEDS: ALBUTEROL/IPRATROPIUM 3 ML NEB RESP TX SCH ×5 (01:55→20:28)
[2019-10-01] MEDS: MORPHINE 4 MG/1 ML VIAL IV PRN ×3 (02:29→13:00)
[2019-10-01] MEDS: SEVELAMER CARBONATE 800 MG TABLET PO SCH ×2 (11:38→17:38)
[2019-10-01] MEDS: POLYETHYLENE GLYCOL POWDER 17 GM PACK PO SCH (11:40)
[2019-10-01] MEDS: ASCORBIC ACID 500 MG TABLET PO SCH (11:41)
[2019-10-01] MEDS: ASPIRIN EC 81 MG TABLET PO SCH (11:41)
[2019-10-01] MEDS: carvediloL 25 MG TABLET PO SCH ×3 (11:41→17:38)
[2019-10-01] MEDS: SODIUM CHLORIDE 0.65% NASAL SPRAY 45 ML BOTTLE BOTH NARES PRN (13:00)
[2019-10-01] MEDS ORDERED: OXYMETAZOLINE 0.05% NASAL SPRAY 15 ML BOTTLE ONE NARE PRN (13:39)
[2019-10-01] MEDS: ROSUVASTATIN 20 MG TABLET PO SCH (21:00)
[2019-10-02] MEDS: ALBUTEROL/IPRATROPIUM 3 ML NEB RESP TX SCH ×4 (01:00→18:53)
[2019-10-02] MEDS: LEVOFLOXACIN INJ 250 MG in PREMIX 1 EACH IV SCH (04:14)
[2019-10-02] MEDS: SEVELAMER CARBONATE 800 MG TABLET PO SCH ×2 (09:52→16:30)
[2019-10-02] MEDS: carvediloL 25 MG TABLET PO SCH ×2 (09:52→16:30)
[2019-10-02] MEDS: ASPIRIN EC 81 MG TABLET PO SCH (09:52)
[2019-10-02] MEDS: POLYETHYLENE GLYCOL POWDER 17 GM PACK PO SCH (09:53)
[2019-10-02] MEDS: ASCORBIC ACID 500 MG TABLET PO SCH (09:53)
[2019-10-02] MEDS: oxyCODONE IR 5 MG TABLET PO PRN (12:04)
[2019-10-02] MEDS ORDERED: NITROGLYCERIN SL 0.4 MG TABLET SL ONE (18:14)
[2019-10-02] MEDS: NITROGLYCERIN SL 0.4 MG TABLET SL PRN ×3 (18:15→18:26)
[2019-10-02] MEDS ORDERED: ALUM/MAG/SIMETH/LIDO VISC 1:1 30 ML BOTTLE PO ONE ×2 (18:26→18:27)
[2019-10-02] MEDS ORDERED: VANCOMYCIN 500 MG VIAL IV SCH (20:45)
[2019-10-02] MEDS: MORPHINE 4 MG/1 ML VIAL IV PRN (21:47)
[2019-10-02] MEDS: ENOXAPARIN 60 MG/0.6 ML SYRINGE SUBCUT ONE ×2 (21:47→21:52)
[2019-10-02] MEDS: ROSUVASTATIN 20 MG TABLET PO SCH (21:47)
[2019-10-03] MEDS: ALBUTEROL/IPRATROPIUM 3 ML NEB RESP TX SCH ×4 (00:37→19:32)
[2019-10-03] MEDS: MORPHINE 4 MG/1 ML VIAL IV PRN ×3 (04:36→21:09)
[2019-10-03] MEDS: SEVELAMER CARBONATE 800 MG TABLET PO SCH ×2 (09:23→17:00)
[2019-10-03] MEDS: carvediloL 25 MG TABLET PO SCH ×2 (09:23→17:00)
[2019-10-03] MEDS: POLYETHYLENE GLYCOL POWDER 17 GM PACK PO SCH (09:23)
[2019-10-03] MEDS: ASPIRIN EC 81 MG TABLET PO SCH (09:23)
[2019-10-03] MEDS: ASCORBIC ACID 500 MG TABLET PO SCH (09:23)
[2019-10-03] MEDS: ROSUVASTATIN 20 MG TABLET PO SCH (21:09)
[2019-10-04] MEDS: ALBUTEROL/IPRATROPIUM 3 ML NEB RESP TX SCH ×2 (01:17→07:35)
[2019-10-04] MEDS: MORPHINE 4 MG/1 ML VIAL IV PRN (03:38)
[2019-10-04 06:53] LABS: Basophils # 0.1 10*3/uL (0.0-0.2); Basophils % 1.2 % (0.0-0.8); Eosinophils # 0.3 10*3/uL (0.0-0.87); Hematocrit 24.9 VOL% (42.0-52.0); Hemoglobin 7.6 GM/DL (14.0-18.0); Immature Granulocytes % 0.2 %; Immature Granulocytes Absolute 0.01 #; Lymphocytes # 1.1 10*3/uL (1.4-4.0); Lymphocytes % 26.2 % (21.2-54.2); Mean Corpuscular HGB Conc 30.5 GM/DL (32-36); Mean Corpuscular Volume 83.8 FL (87-102); Mean Platelet Volume 9.9 FL (9.6-12.0); Monocytes % 16.1 % (1.7-12.7); Neutrophils % 50.3 % (38.7-73.9); Platelet Count 116 T/CUMM (130-400); Red Blood Count 2.97 MC/CUMM (3.8-5.5); Red Cell Distribution Width 17.3 % (9.3-17.3); White Blood Count 4.2 T/CUMM (4-12)
[2019-10-04 07:16] LABS: Calcium 8.1 MG/DL (8.5-10.1); Osmolality,Calculated 296.4 MOS/KG (273-304)
[2019-10-04 07:20] LABS: Eosinophils 6 % (0-10); Hypochromasia 1+; Lymphocytes 24 % (20-55); Ovalocytes Slight; Platelet Estimate Decreased; Segmented Neutrophils 53 % (50-85); Total Cells Counted 100
[2019-10-04 08:15] VITALS: BP 153/99
[2019-10-04] MEDS: SEVELAMER CARBONATE 800 MG TABLET PO SCH (12:28)
[2019-10-04] MEDS: ASPIRIN EC 81 MG TABLET PO SCH (12:28)
[2019-10-04] MEDS: ASCORBIC ACID 500 MG TABLET PO SCH (12:29)
[2019-10-04] MEDS: POLYETHYLENE GLYCOL POWDER 17 GM PACK PO SCH (12:29)
[2019-10-04] MEDS: carvediloL 25 MG TABLET PO SCH (12:29)
== END 2019-10-04 15:27 | disposition home or self-care (01) | DRG 193 ==
LOC: EDUNIT# → EDBD → N.ED 23:36 → SUATTDRO 09-24 02:29 → N.EDINP 09-24 02:29 → N.5E 09-24 02:52 → N.TELES 10-02 19:27
PROVIDERS: ADMIT Internal Medicine; ATTEND Internal Medicine Nephrology

== ENCOUNTER 2020-01-12 21:01 | Observation (INO) ==
[2020-01-12] MEDS ORDERED: ALUM/MAG/SIMETH/LIDO VISC 1:1 30 ML BOTTLE PO STA (21:22)
[2020-01-12] MEDS ORDERED: hydrALAZINE 20 MG/1 ML VIAL IV STA (21:22)
[2020-01-12] MEDS ORDERED: MORPHINE 4 MG/1 ML VIAL IV STA (21:22)
[2020-01-12] MEDS ORDERED: NITROGLYCERIN 2% OINT 1 INCH/GM PACK TOP STA (21:22)
[2020-01-12] MEDS ORDERED: ASPIRIN 325 MG TABLET PO STA (21:22)
[2020-01-12] MEDS ORDERED: PROMETHAZINE 25 MG/1 ML VIAL IM STA (21:24)
[2020-01-12 21:29] LABS: Basophils # 0.1 10*3/uL (0.0-0.2); Basophils % 1.3 % (0.0-0.8); Eosinophils # 0.4 10*3/uL (0.0-0.87); Eosinophils % 7.2 % (0.00-10.9); Hematocrit 39.1 VOL% (42.0-52.0); Hemoglobin 11.7 GM/DL (14.0-18.0); Immature Granulocytes % 0.3 %; Immature Granulocytes Absolute 0.02 #; Lymphocytes # 1.4 10*3/uL (1.4-4.0); Lymphocytes % 22.8 % (21.2-54.2); Mean Corpuscular HGB Conc 29.9 GM/DL (32-36); Mean Corpuscular Volume 85.9 FL (87-102); Mean Platelet Volume 10.3 FL (9.6-12.0); Monocytes % 15.1 % (1.7-12.7); Neutrophils % 53.3 % (38.7-73.9); Red Blood Count 4.55 MC/CUMM (3.8-5.5); Red Cell Distribution Width 20.9 % (9.3-17.3)
[2020-01-12 21:31] LABS: Platelet Count 84 T/CUMM (130-400)
[2020-01-12 21:38] LABS: INR 1.2
[2020-01-12 21:41] LABS: Albumin 3.6 G/DL (3.4-5.0); Bilirubin,Total 1.1 MG/DL (0.2-1.0); Calcium 8.1 MG/DL (8.5-10.1)
[2020-01-12 21:49] LABS: Ferritin 764.2 ng/ml (26-388)
[2020-01-13] MEDS ORDERED: ACETAMINOPHEN 325 MG TABLET PO PRN (01:03)
[2020-01-13] MEDS ORDERED: DOCUSATE SODIUM 100 MG CAPSULE PO PRN (01:03)
[2020-01-13] MEDS ORDERED: VANCOMYCIN INJ 1,000 MG in SODIUM CHLORIDE 0.9% 250 ML IV ONE (01:30)
[2020-01-13] MEDS: PROMETHAZINE 25 MG/1 ML VIAL IM PRN ×2 (01:45→13:09)
[2020-01-13] MEDS: MORPHINE 4 MG/1 ML VIAL IV PRN ×2 (02:57→20:34)
[2020-01-13 09:47] LABS: Basophils # 0.1 10*3/uL (0.0-0.2); Basophils % 1.2 % (0.0-0.8); Eosinophils # 0.4 10*3/uL (0.0-0.87); Eosinophils % 7.4 % (0.00-10.9); Hematocrit 33.2 VOL% (42.0-52.0); Hemoglobin 10.2 GM/DL (14.0-18.0); Immature Granulocytes % 0.2 %; Immature Granulocytes Absolute 0.01 #; Lymphocytes # 1.2 10*3/uL (1.4-4.0); Mean Corpuscular HGB Conc 30.7 GM/DL (32-36); Mean Corpuscular Volume 83.6 FL (87-102); Mean Platelet Volume 10.2 FL (9.6-12.0); Neutrophils % 51.2 % (38.7-73.9); Red Blood Count 3.97 MC/CUMM (3.8-5.5); Red Cell Distribution Width 20.4 % (9.3-17.3)
[2020-01-13 09:48] LABS: Platelet Count 68 T/CUMM (130-400)
[2020-01-13 10:04] LABS: Calcium 7.9 MG/DL (8.5-10.1); Osmolality,Calculated 278.7 MOS/KG (273-304)
[2020-01-13 10:07] LABS: Eosinophils 5 % (0-10); Lymphocytes 26 % (20-55); Platelet Estimate Decreased; Segmented Neutrophils 52 % (50-85); Total Cells Counted 100
[2020-01-13 10:08] LABS: Anisocytosis 1+; Poikilocytosis Slight
[2020-01-13 10:13] LABS: Risk Ratio 2.73; Thyroid Stimulating Hormone 2.6 uIU/ml (0.358-3.74); VLDL CHOLESTEROL 13.8 MG/DL
[2020-01-13] MEDS: NITROGLYCERIN SL 0.4 MG TABLET SL PRN ×3 (10:36→20:05)
[2020-01-13] MEDS: carvediloL 6.25 MG TABLET PO SCH ×2 (11:52→20:20)
[2020-01-13] MEDS: ISOSORBIDE MONONITRATE 30 MG TABLET PO SCH (11:53)
[2020-01-13] MEDS: ROSUVASTATIN 20 MG TABLET PO SCH (20:20)
[2020-01-14] MEDS: PROMETHAZINE 25 MG/1 ML VIAL IM PRN ×2 (04:03→22:24)
[2020-01-14 05:44] LABS: Basophils # 0.1 10*3/uL (0.0-0.2); Basophils % 1.7 % (0.0-0.8); Eosinophils # 0.5 10*3/uL (0.0-0.87); Eosinophils % 10.8 % (0.00-10.9); Hematocrit 30.3 VOL% (42.0-52.0); Hemoglobin 9.2 GM/DL (14.0-18.0); Immature Granulocytes % 0.2 %; Immature Granulocytes Absolute 0.01 #; Lymphocytes # 1.1 10*3/uL (1.4-4.0); Lymphocytes % 25.2 % (21.2-54.2); Mean Corpuscular HGB Conc 30.4 GM/DL (32-36); Mean Corpuscular Volume 85.8 FL (87-102); Monocytes % 15.1 % (1.7-12.7); Platelet Count 59 T/CUMM (130-400); Red Blood Count 3.53 MC/CUMM (3.8-5.5); Red Cell Distribution Width 20.7 % (9.3-17.3); White Blood Count 4.2 T/CUMM (4-12)
[2020-01-14 06:10] LABS: Calcium 7.7 MG/DL (8.5-10.1)
[2020-01-14 06:14] LABS: Eosinophils 12 % (0-10); Lymphocytes 26 % (20-55); Segmented Neutrophils 46 % (50-85); Total Cells Counted 100
[2020-01-14 06:15] LABS: Anisocytosis 1+; Atypical Lymphocytes Few; Hypochromasia 1+; Microcytosis 1+
[2020-01-14 06:16] LABS: Ovalocytes Slight; Platelet Estimate Decreased
[2020-01-14] MEDS: ISOSORBIDE MONONITRATE 30 MG TABLET PO SCH (08:59)
[2020-01-14] MEDS: MORPHINE 4 MG/1 ML VIAL IV PRN ×2 (08:59→20:15)
[2020-01-14] MEDS: METOPROLOL TARTRATE 50 MG TABLET PO SCH ×2 (08:59→20:15)
[2020-01-14] MEDS: ASCORBIC ACID 500 MG TABLET PO SCH (08:59)
[2020-01-14] MEDS: ASPIRIN EC 81 MG TABLET PO SCH (08:59)
[2020-01-14] MEDS ORDERED: diphenhydrAMINE 25 MG/10 ML UDCUP PO PRN (15:26)
[2020-01-14] MEDS: ROSUVASTATIN 20 MG TABLET PO SCH (20:15)
[2020-01-15] MEDS: MORPHINE 4 MG/1 ML VIAL IV PRN ×2 (01:05→06:25)
[2020-01-15] MEDS: ASPIRIN EC 81 MG TABLET PO SCH (09:36)
[2020-01-15] MEDS: ASCORBIC ACID 500 MG TABLET PO SCH (09:36)
[2020-01-15] MEDS: METOPROLOL TARTRATE 50 MG TABLET PO SCH (09:36)
[2020-01-15] MEDS: ISOSORBIDE MONONITRATE 30 MG TABLET PO SCH (09:36)
[2020-01-15 10:05] VITALS: BP 147/100
== END 2020-01-15 13:14 | disposition home or self-care (01) ==
LOC: N.ED 21:01 → N.EDINP 21:01 → SUATTDRO 23:32 → N.EDINP 01-13 00:45 → N.2E 01-13 01:04
PROVIDERS: ADMIT Internal Medicine; ATTEND Family Medicine

== ENCOUNTER 2020-02-01 22:00 | Observation (INO) ==
[2020-02-02] MEDS ORDERED: GLUCAGON 1 MG VIAL IM PRN (01:11)
[2020-02-02] MEDS ORDERED: DEXTROSE 50% 25 GM/50 ML VIAL IV PRN (01:11)
[2020-02-02] MEDS ORDERED: NICOTINE 21 MG/24 HR PATCH TRANSDERM PRN (01:16)
[2020-02-02] MEDS ORDERED: diphenhydrAMINE CAP 25 MG CAPSULE PO PRN (01:16)
[2020-02-02] MEDS ORDERED: LORazepam 1 MG TABLET PO PRN (02:19)
[2020-02-02] MEDS ORDERED: FAMOTIDINE 20 MG/2 ML VIAL IV SCH (02:30)
[2020-02-02] MEDS: hydrALAZINE 20 MG/1 ML VIAL IV PRN (03:38)
[2020-02-02] MEDS ORDERED: diphenhydrAMINE 50 MG/1 ML VIAL IV ONE (03:45)
[2020-02-02] MEDS: ISOSORBIDE MONONITRATE 30 MG TABLET PO SCH (09:39)
[2020-02-02] MEDS: METOPROLOL TARTRATE 100 MG TABLET PO SCH ×3 (09:39→23:49)
[2020-02-02 11:31] LABS: Basophils # 0.1 10*3/uL (0.0-0.2); Eosinophils # 0.3 10*3/uL (0.0-0.87); Eosinophils % 6.3 % (0.00-10.9); Hematocrit 38.5 VOL% (42.0-52.0); Lymphocytes # 1.1 10*3/uL (1.4-4.0); Lymphocytes % 23.8 % (21.2-54.2); Mean Corpuscular HGB Conc 31.2 GM/DL (32-36); Mean Corpuscular Volume 85.6 FL (87-102); Mean Platelet Volume 9.5 FL (9.6-12.0); Monocytes % 14.8 % (1.7-12.7); NRBC # 0.02 10*3/uL; Neutrophils % 54.1 % (38.7-73.9); White Blood Count 4.8 T/CUMM (4-12)
[2020-02-02 11:32] LABS: Platelet Count 70 T/CUMM (130-400)
[2020-02-02 11:48] LABS: Albumin 3.2 G/DL (3.4-5.0); Bilirubin,Total 1.4 MG/DL (0.2-1.0); Calcium 8.2 MG/DL (8.5-10.1); Osmolality,Calculated 285.8 MOS/KG (273-304); Total Protein 7.5 G/DL (6.4-8.3)
[2020-02-02 12:36] LABS: Platelet Estimate Decreased
[2020-02-02 12:37] LABS: Anisocytosis 1+; Macrocytosis Slight
[2020-02-02] MEDS: ROSUVASTATIN 20 MG TABLET PO SCH ×2 (21:09→23:49)
[2020-02-03] MEDS: hydrALAZINE 20 MG/1 ML VIAL IV PRN (01:30)
[2020-02-03] MEDS: NITROGLYCERIN SL 0.4 MG TABLET SL PRN ×3 (01:59→02:16)
[2020-02-03] MEDS ORDERED: SODIUM CHLORIDE 0.9% 1,000 ML IV SCH (08:00)
[2020-02-03] MEDS ORDERED: ASCORBIC ACID 500 MG TABLET PO SCH (09:00)
[2020-02-03] MEDS ORDERED: hydrALAZINE 20 MG/1 ML VIAL IV PRN (09:10)
[2020-02-03] MEDS ORDERED: propofoL 200 MG/20 ML VIAL IV ONE (10:00)
[2020-02-03] MEDS ORDERED: LIDOCAINE 2% 5 ML VIAL ONE (10:00)
[2020-02-03 13:26] LABS: Basophils # 0.1 10*3/uL (0.0-0.2); Basophils % 1.2 % (0.0-0.8); Eosinophils # 0.3 10*3/uL (0.0-0.87); Eosinophils % 6.3 % (0.00-10.9); Hematocrit 36.3 VOL% (42.0-52.0); Hemoglobin 11.5 GM/DL (14.0-18.0); Immature Granulocytes % 0.2 %; Immature Granulocytes Absolute 0.01 #; Lymphocytes # 1.1 10*3/uL (1.4-4.0); Lymphocytes % 26.4 % (21.2-54.2); Mean Corpuscular HGB Conc 31.7 GM/DL (32-36); Mean Platelet Volume 10.8 FL (9.6-12.0); Monocytes % 7.9 % (1.7-12.7); Platelet Count 87 T/CUMM (130-400); Red Blood Count 4.32 MC/CUMM (3.8-5.5); Red Cell Distribution Width 21.5 % (9.3-17.3); White Blood Count 4.3 T/CUMM (4-12)
[2020-02-03 13:28] LABS: Calcium 8.4 MG/DL (8.5-10.1); Osmolality,Calculated 282.1 MOS/KG (273-304)
[2020-02-03 13:59] LABS: Platelet Estimate Decreased
[2020-02-03 16:41] VITALS: BP 133/89
[2020-02-03] MEDS: ISOSORBIDE MONONITRATE 30 MG TABLET PO SCH (17:20)
[2020-02-03] MEDS: METOPROLOL TARTRATE 100 MG TABLET PO SCH (17:21)
== END 2020-02-03 20:50 | disposition home or self-care (01) ==
LOC: N.TELEN → SUATTDRO 02-02 00:02
PROVIDERS: ADMIT Internal Medicine; ATTEND Family Medicine

== ENCOUNTER 2020-03-19 23:05 | Inpatient (IN) ==
[2020-03-19] MEDS ORDERED: ASPIRIN CHEW 81 MG TABLET PO STA (23:55)
[2020-03-20 01:05] LABS: Basophils # 0.1 10*3/uL (0.0-0.2); Basophils % 1.2 % (0.0-0.8); Eosinophils # 0.3 10*3/uL (0.0-0.87); Hematocrit 30.7 VOL% (42.0-52.0); Hemoglobin 9.4 GM/DL (14.0-18.0); Immature Granulocytes % 0.2 %; Immature Granulocytes Absolute 0.01 #; Lymphocytes # 1.2 10*3/uL (1.4-4.0); Lymphocytes % 29.7 % (21.2-54.2); Mean Corpuscular HGB Conc 30.6 GM/DL (32-36); Mean Corpuscular Volume 89.2 FL (87-102); Mean Platelet Volume 11.4 FL (9.6-12.0); Monocytes % 13.8 % (1.7-12.7); Neutrophils % 47.1 % (38.7-73.9); Platelet Count 116 T/CUMM (130-400); Red Blood Count 3.44 MC/CUMM (3.8-5.5); Red Cell Distribution Width 21.5 % (9.3-17.3); White Blood Count 4.1 T/CUMM (4-12)
[2020-03-20] MEDS ORDERED: MORPHINE 4 MG/1 ML VIAL IM STA (01:05)
[2020-03-20] MEDS ORDERED: PROMETHAZINE 25 MG/1 ML VIAL IM STA (01:07)
[2020-03-20 01:27] LABS: Albumin 2.6 G/DL (3.4-5.0); Bilirubin,Total 0.6 MG/DL (0.2-1.0); Total Protein 6.3 G/DL (6.4-8.3)
[2020-03-20] MEDS ORDERED: ENOXAPARIN 30 MG/0.3 ML SYRINGE SUBCUT STA (01:29)
[2020-03-20] MEDS ORDERED: MORPHINE 4 MG/1 ML VIAL IV STA (01:50)
[2020-03-20] MEDS ORDERED: ENOXAPARIN 80 MG/0.8 ML SYRINGE SUBCUT ONE (02:47)
[2020-03-20] MEDS: HYDROmorphone 2 MG/1 ML VIAL IV PRN ×4 (03:12→20:40)
[2020-03-20 04:20] LABS: Hypochromasia 1+; Ovalocytes 2+; Platelet Estimate Normal
[2020-03-20 04:50] LABS: INR 1.2; PT Patient Result 12.4 SECS (9.8-11.9); Partial Thromboplastin Time 30.4 SECS (23.9-33.8)
[2020-03-20] MEDS ORDERED: DOCUSATE SODIUM 100 MG CAPSULE PO PRN (12:21)
[2020-03-20 13:04] LABS: Basophils # 0.1 10*3/uL (0.0-0.2); Basophils % 1.5 % (0.0-0.8); Eosinophils # 0.4 10*3/uL (0.0-0.87); Eosinophils % 8.9 % (0.00-10.9); Hematocrit 34.1 VOL% (42.0-52.0); Hemoglobin 10.3 GM/DL (14.0-18.0); Immature Granulocytes % 0.2 %; Immature Granulocytes Absolute 0.01 #; Lymphocytes # 1.4 10*3/uL (1.4-4.0); Lymphocytes % 34.4 % (21.2-54.2); Mean Corpuscular HGB Conc 30.2 GM/DL (32-36); Mean Corpuscular Volume 90.7 FL (87-102); Mean Platelet Volume 9.8 FL (9.6-12.0); Monocytes % 12.9 % (1.7-12.7); Neutrophils % 42.1 % (38.7-73.9); Platelet Count 123 T/CUMM (130-400); Red Blood Count 3.76 MC/CUMM (3.8-5.5); Red Cell Distribution Width 21.5 % (9.3-17.3)
[2020-03-20 13:22] LABS: Calcium 7.3 MG/DL (8.5-10.1); Osmolality,Calculated 282.1 MOS/KG (273-304)
[2020-03-20] MEDS: CALCIUM ACETATE 667 MG CAPSULE PO SCH ×2 (13:49→18:08)
[2020-03-20] MEDS ORDERED: diphenhydrAMINE 50 MG/1 ML VIAL ONE (14:03)
[2020-03-20] MEDS ORDERED: diphenhydrAMINE 50 MG/1 ML VIAL IV STA (14:24)
[2020-03-20 14:45] LABS: Eosinophils 6 % (0-10); Lymphocytes 27 % (20-55); Segmented Neutrophils 55 % (50-85); Total Cells Counted 100
[2020-03-20] MEDS: carvediloL 25 MG TABLET PO SCH (22:04)
[2020-03-21] MEDS: HYDROmorphone 2 MG/1 ML VIAL IV PRN ×3 (01:36→23:06)
[2020-03-21] MEDS: hydrALAZINE 20 MG/1 ML VIAL IV PRN (04:46)
[2020-03-21 05:43] LABS: Basophils # 0.1 10*3/uL (0.0-0.2); Basophils % 1.2 % (0.0-0.8); Eosinophils # 0.4 10*3/uL (0.0-0.87); Eosinophils % 8.6 % (0.00-10.9); Hematocrit 35.6 VOL% (42.0-52.0); Hemoglobin 10.8 GM/DL (14.0-18.0); Immature Granulocytes % 0.2 %; Immature Granulocytes Absolute 0.01 #; Lymphocytes % 24.4 % (21.2-54.2); Mean Corpuscular HGB Conc 30.3 GM/DL (32-36); Mean Corpuscular Volume 90.1 FL (87-102); Mean Platelet Volume 10.8 FL (9.6-12.0); Monocytes % 15.3 % (1.7-12.7); Neutrophils % 50.3 % (38.7-73.9); Platelet Count 109 T/CUMM (130-400); Red Blood Count 3.95 MC/CUMM (3.8-5.5); Red Cell Distribution Width 21.2 % (9.3-17.3); White Blood Count 4.1 T/CUMM (4-12)
[2020-03-21 06:06] LABS: Albumin 2.8 G/DL (3.4-5.0); Bilirubin,Total 0.7 MG/DL (0.2-1.0); Calcium 7.9 MG/DL (8.5-10.1); Osmolality,Calculated 276.1 MOS/KG (273-304); Total Protein 6.8 G/DL (6.4-8.3)
[2020-03-21] MEDS: NITROGLYCERIN SL 0.4 MG TABLET SL PRN ×2 (07:30→07:45)
[2020-03-21] MEDS ORDERED: amLODIPine 5 MG TABLET PO SCH (09:00)
[2020-03-21] MEDS ORDERED: ISOSORBIDE MONONITRATE 60 MG TABLET PO SCH (09:00)
[2020-03-21] MEDS: PANTOPRAZOLE 40 MG TABLET PO SCH ×2 (09:35→23:03)
[2020-03-21] MEDS: CALCIUM ACETATE 667 MG CAPSULE PO SCH ×3 (09:35→17:15)
[2020-03-21] MEDS: LOSARTAN 50 MG TABLET PO SCH (09:35)
[2020-03-21] MEDS: carvediloL 25 MG TABLET PO SCH ×2 (09:35→17:15)
[2020-03-21] MEDS: ASPIRIN EC 81 MG TABLET PO SCH (09:36)
[2020-03-21] MEDS ORDERED: ALUM/MAG/SIMETH/LIDO VISC 1:1 30 ML BOTTLE PO ONE (09:51)
[2020-03-21] MEDS: ATORVASTATIN 80 MG TABLET PO SCH (22:53)
[2020-03-22] MEDS: HYDROmorphone 2 MG/1 ML VIAL IV PRN ×4 (04:07→21:26)
[2020-03-22] MEDS ORDERED: REGADENOSON 0.4 MG/5 ML SYRINGE IV ONE (08:42)
[2020-03-22] MEDS: carvediloL 25 MG TABLET PO SCH ×2 (09:09→17:03)
[2020-03-22] MEDS: SODIUM CHLORIDE 0.9% 1,000 ML IV SCH (09:09)
[2020-03-22] MEDS: CALCIUM ACETATE 667 MG CAPSULE PO SCH ×3 (09:10→17:03)
[2020-03-22] MEDS: ISOSORBIDE MONONITRATE 60 MG TABLET PO SCH (09:10)
[2020-03-22] MEDS: LOSARTAN 50 MG TABLET PO SCH (09:10)
[2020-03-22] MEDS: ASPIRIN EC 81 MG TABLET PO SCH (09:10)
[2020-03-22] MEDS: amLODIPine 10 MG TABLET PO SCH (09:10)
[2020-03-22] MEDS: PANTOPRAZOLE 40 MG TABLET PO SCH ×2 (09:10→21:26)
[2020-03-22] MEDS ORDERED: POTASSIUM CHLORIDE RIDER 10 MEQ in PREMIX 1 EACH IV PRN (16:48)
[2020-03-22] MEDS ORDERED: MAGNESIUM SULF RIDER 2 GM in PREMIX 1 EACH IV PRN (16:48)
[2020-03-22] MEDS: ATORVASTATIN 80 MG TABLET PO SCH (21:26)
[2020-03-23] MEDS: hydrALAZINE 20 MG/1 ML VIAL IV PRN (04:12)
[2020-03-23 05:57] LABS: Basophils % 0.8 % (0.0-0.8); Eosinophils # 0.2 10*3/uL (0.0-0.87); Eosinophils % 5.7 % (0.00-10.9); Hematocrit 31.7 VOL% (42.0-52.0); Hemoglobin 9.9 GM/DL (14.0-18.0); Immature Granulocytes % 0.3 %; Immature Granulocytes Absolute 0.01 #; Lymphocytes # 0.8 10*3/uL (1.4-4.0); Lymphocytes % 20.4 % (21.2-54.2); Mean Corpuscular HGB Conc 31.2 GM/DL (32-36); Mean Corpuscular Volume 87.8 FL (87-102); Mean Platelet Volume 10.1 FL (9.6-12.0); Neutrophils % 55.8 % (38.7-73.9); Red Blood Count 3.61 MC/CUMM (3.8-5.5); White Blood Count 3.8 T/CUMM (4-12)
[2020-03-23 06:02] LABS: Platelet Count 82 T/CUMM (130-400)
[2020-03-23 06:11] LABS: Calcium 7.8 MG/DL (8.5-10.1); Osmolality,Calculated 274.2 MOS/KG (273-304)
[2020-03-23 06:53] LABS: Band Neutrophils 7 % (0-10); Eosinophils 5 % (0-10); Lymphocytes 23 % (20-55); Metamyelocytes 2 %; Segmented Neutrophils 49 % (50-85); Total Cells Counted 100
[2020-03-23 06:55] LABS: Platelet Estimate Decreased
[2020-03-23] MEDS: HYDROmorphone 2 MG/1 ML VIAL IV PRN ×2 (08:37→15:56)
[2020-03-23] MEDS: CALCIUM ACETATE 667 MG CAPSULE PO SCH ×3 (08:42→16:59)
[2020-03-23] MEDS ORDERED: METOPROLOL TARTRATE 5 MG/5 ML VIAL IV ONE (09:00)
[2020-03-23] MEDS ORDERED: ETOMIDATE 20 MG/10 ML VIAL IV ONE (09:00)
[2020-03-23] MEDS ORDERED: LIDOCAINE 2% 5 ML VIAL ONE (09:00)
[2020-03-23] MEDS ORDERED: MIDAZOLAM 2 MG/2 ML VIAL ONE (09:54)
[2020-03-23] MEDS: SODIUM CHLORIDE 0.9% 1,000 ML IV SCH (09:56)
[2020-03-23] MEDS: amLODIPine 10 MG TABLET PO SCH (12:06)
[2020-03-23] MEDS: LOSARTAN 50 MG TABLET PO SCH (12:07)
[2020-03-23] MEDS: ISOSORBIDE MONONITRATE 60 MG TABLET PO SCH (12:07)
[2020-03-23] MEDS: ASPIRIN EC 81 MG TABLET PO SCH (12:07)
[2020-03-23] MEDS: carvediloL 25 MG TABLET PO SCH ×2 (12:07→17:00)
[2020-03-23] MEDS: PANTOPRAZOLE 40 MG TABLET PO SCH ×2 (12:08→21:46)
[2020-03-23] MEDS ORDERED: diphenhydrAMINE 50 MG/1 ML VIAL IV ONE (19:42)
[2020-03-23] MEDS ORDERED: diphenhydrAMINE CAP 25 MG CAPSULE PO PRN (19:42)
[2020-03-23] MEDS: ATORVASTATIN 80 MG TABLET PO SCH (21:46)
[2020-03-24] MEDS: HYDROmorphone 2 MG/1 ML VIAL IV PRN ×5 (00:13→23:03)
[2020-03-24] MEDS: CALCIUM ACETATE 667 MG CAPSULE PO SCH ×3 (08:51→17:30)
[2020-03-24] MEDS: carvediloL 25 MG TABLET PO SCH ×2 (08:51→17:31)
[2020-03-24] MEDS: LOSARTAN 50 MG TABLET PO SCH (08:52)
[2020-03-24] MEDS: PANTOPRAZOLE 40 MG TABLET PO SCH ×2 (08:52→22:20)
[2020-03-24] MEDS: ISOSORBIDE MONONITRATE 60 MG TABLET PO SCH (08:52)
[2020-03-24] MEDS: amLODIPine 10 MG TABLET PO SCH (08:52)
[2020-03-24] MEDS: ASPIRIN EC 81 MG TABLET PO SCH (08:52)
[2020-03-24] MEDS ORDERED: HEPARIN/NACL 0.9% 2 UNITS/ML 1,500 ML IV ONE (10:40)
[2020-03-24] MEDS ORDERED: LIDOCAINE 1% 20 ML VIAL ONE (10:40)
[2020-03-24] MEDS ORDERED: DIAZEPAM 5 MG TABLET PO ONE (11:00)
[2020-03-24] MEDS ORDERED: FAMOTIDINE INJ 40 MG in SODIUM CHLORIDE 0.9% 100 ML IV ONE (11:00)
[2020-03-24] MEDS ORDERED: diphenhydrAMINE CAP 25 MG CAPSULE PO ONE (11:00)
[2020-03-24] MEDS ORDERED: methylPREDNISolone SOD SUC 125 MG/2 ML VIAL IV ONE (11:00)
[2020-03-24] MEDS ORDERED: fentaNYL 100 MCG/2 ML VIAL ONE (11:43)
[2020-03-24] MEDS ORDERED: MIDAZOLAM 2 MG/2 ML VIAL ONE (11:43)
[2020-03-24] MEDS ORDERED: diphenhydrAMINE 50 MG/1 ML VIAL ONE (12:12)
[2020-03-24] MEDS: SODIUM CHLORIDE 0.9% 1,000 ML IV SCH (13:17)
[2020-03-24] MEDS: PROMETHAZINE 25 MG/1 ML VIAL IM PRN (19:48)
[2020-03-24] MEDS: ATORVASTATIN 80 MG TABLET PO SCH (22:19)
[2020-03-25 06:43] LABS: Basophils % 0.2 % (0.0-0.8); Hematocrit 30.8 VOL% (42.0-52.0); Hemoglobin 9.4 GM/DL (14.0-18.0); Immature Granulocytes % 0.8 %; Immature Granulocytes Absolute 0.04 #; Lymphocytes # 0.6 10*3/uL (1.4-4.0); Lymphocytes % 11.2 % (21.2-54.2); Mean Corpuscular HGB Conc 30.5 GM/DL (32-36); Mean Corpuscular Volume 88.8 FL (87-102); Mean Platelet Volume 11.3 FL (9.6-12.0); Monocytes % 9.1 % (1.7-12.7); Neutrophils % 78.7 % (38.7-73.9); Platelet Count 90 T/CUMM (130-400); Red Blood Count 3.47 MC/CUMM (3.8-5.5); Red Cell Distribution Width 20.3 % (9.3-17.3); White Blood Count 5.3 T/CUMM (4-12)
[2020-03-25 07:02] LABS: Calcium 8.3 MG/DL (8.5-10.1); Osmolality,Calculated 271.7 MOS/KG (273-304)
[2020-03-25] MEDS: HYDROmorphone 2 MG/1 ML VIAL IV PRN ×3 (09:16→20:50)
[2020-03-25] MEDS: CALCIUM ACETATE 667 MG CAPSULE PO SCH ×3 (09:20→16:53)
[2020-03-25] MEDS: hydrALAZINE 20 MG/1 ML VIAL IV PRN (09:20)
[2020-03-25] MEDS: ISOSORBIDE MONONITRATE 60 MG TABLET PO SCH (09:21)
[2020-03-25] MEDS: PANTOPRAZOLE 40 MG TABLET PO SCH ×2 (09:21→21:08)
[2020-03-25] MEDS: LOSARTAN 50 MG TABLET PO SCH (09:21)
[2020-03-25] MEDS: carvediloL 25 MG TABLET PO SCH ×2 (09:21→16:54)
[2020-03-25] MEDS: ASPIRIN EC 81 MG TABLET PO SCH (09:21)
[2020-03-25] MEDS: amLODIPine 10 MG TABLET PO SCH (09:21)
[2020-03-25 12:15] LABS: Platelet Estimate Decreased
[2020-03-25 12:16] LABS: Hypochromasia 1+; Ovalocytes Few
[2020-03-25] MEDS: PROMETHAZINE 25 MG/1 ML VIAL IM PRN (16:00)
[2020-03-25] MEDS: SODIUM CHLORIDE 0.9% 1,000 ML IV SCH (16:22)
[2020-03-25] MEDS: ATORVASTATIN 80 MG TABLET PO SCH (21:08)
[2020-03-26] MEDS: HYDROmorphone 2 MG/1 ML VIAL IV PRN ×4 (03:12→20:30)
[2020-03-26 03:48] LABS: Basophils % 0.6 % (0.0-0.8); Eosinophils # 0.1 10*3/uL (0.0-0.87); Eosinophils % 1.4 % (0.00-10.9); Hematocrit 32.4 VOL% (42.0-52.0); Hemoglobin 9.7 GM/DL (14.0-18.0); Immature Granulocytes % 0.4 %; Immature Granulocytes Absolute 0.02 #; Lymphocytes # 1.1 10*3/uL (1.4-4.0); Lymphocytes % 21.3 % (21.2-54.2); Mean Corpuscular HGB Conc 29.9 GM/DL (32-36); Mean Corpuscular Volume 89.8 FL (87-102); Mean Platelet Volume 10.4 FL (9.6-12.0); Monocytes % 12.9 % (1.7-12.7); Neutrophils % 63.4 % (38.7-73.9); Platelet Count 103 T/CUMM (130-400); Red Blood Count 3.61 MC/CUMM (3.8-5.5); Red Cell Distribution Width 20.4 % (9.3-17.3)
[2020-03-26 04:00] LABS: Osmolality,Calculated 270.8 MOS/KG (273-304)
[2020-03-26] MEDS: CALCIUM ACETATE 667 MG CAPSULE PO SCH ×3 (08:40→16:30)
[2020-03-26] MEDS: ISOSORBIDE MONONITRATE 60 MG TABLET PO SCH (08:41)
[2020-03-26] MEDS: ASPIRIN EC 81 MG TABLET PO SCH (08:42)
[2020-03-26] MEDS: amLODIPine 10 MG TABLET PO SCH (08:42)
[2020-03-26] MEDS: LOSARTAN 50 MG TABLET PO SCH (08:42)
[2020-03-26] MEDS: PANTOPRAZOLE 40 MG TABLET PO SCH ×2 (08:42→21:18)
[2020-03-26] MEDS: carvediloL 25 MG TABLET PO SCH ×2 (08:42→16:30)
[2020-03-26] MEDS: SODIUM CHLORIDE 0.9% 1,000 ML IV SCH (11:30)
[2020-03-26] MEDS: ATORVASTATIN 80 MG TABLET PO SCH (21:13)
[2020-03-27] MEDS: HYDROmorphone 2 MG/1 ML VIAL IV PRN ×3 (01:23→13:04)
[2020-03-27] MEDS: hydrALAZINE 20 MG/1 ML VIAL IV PRN (05:23)
[2020-03-27] MEDS: CALCIUM ACETATE 667 MG CAPSULE PO SCH ×3 (12:50→16:38)
[2020-03-27] MEDS: carvediloL 25 MG TABLET PO SCH ×2 (12:50→16:38)
[2020-03-27] MEDS: LOSARTAN 50 MG TABLET PO SCH (12:51)
[2020-03-27] MEDS: PANTOPRAZOLE 40 MG TABLET PO SCH ×2 (12:51→21:41)
[2020-03-27] MEDS: ASPIRIN EC 81 MG TABLET PO SCH (12:51)
[2020-03-27] MEDS: ISOSORBIDE MONONITRATE 60 MG TABLET PO SCH (12:51)
[2020-03-27] MEDS: amLODIPine 10 MG TABLET PO SCH (12:52)
[2020-03-27] MEDS: SODIUM CHLORIDE 0.9% 1,000 ML IV SCH (12:55)
[2020-03-27] MEDS: PROMETHAZINE 25 MG/1 ML VIAL IM PRN (15:07)
[2020-03-27] MEDS: ATORVASTATIN 80 MG TABLET PO SCH (21:41)
[2020-03-28 08:25] VITALS: BP 160/101
[2020-03-28] MEDS: LOSARTAN 50 MG TABLET PO SCH (08:46)
[2020-03-28] MEDS: SODIUM CHLORIDE 0.9% 1,000 ML IV SCH (08:46)
[2020-03-28] MEDS: CALCIUM ACETATE 667 MG CAPSULE PO SCH (08:47)
[2020-03-28] MEDS: ASPIRIN EC 81 MG TABLET PO SCH (08:47)
[2020-03-28] MEDS: ISOSORBIDE MONONITRATE 60 MG TABLET PO SCH (08:47)
[2020-03-28] MEDS: PANTOPRAZOLE 40 MG TABLET PO SCH (08:47)
[2020-03-28] MEDS: amLODIPine 10 MG TABLET PO SCH (08:47)
[2020-03-28] MEDS: carvediloL 25 MG TABLET PO SCH (08:47)
== END 2020-03-28 12:03 | disposition home health service (06) | DRG 286 ==
LOC: EDUNIT# → EDBD → N.EDINP 23:05 → N.ED 23:05 → SUATTDRO 03-20 02:39 → N.EDINP 03-20 17:36 → N.TELES 03-20 17:59 → SUATTDRO 03-21 11:42
PROVIDERS: ADMIT Hospitalist; ATTEND Internal Medicine Geriatric Medicine
PROC: CLCCHCL (ICD-10-PCS; 2020-03-24 11:45)

== ENCOUNTER 2020-05-11 22:11 | Observation (INO) ==
[2020-05-12] MEDS ORDERED: DEXTROSE 50% 25 GM/50 ML VIAL IV PRN (00:06)
[2020-05-12] MEDS ORDERED: NICOTINE 21 MG/24 HR PATCH TRANSDERM PRN (00:06)
[2020-05-12] MEDS ORDERED: GLUCAGON 1 MG VIAL IM PRN (00:06)
[2020-05-12 00:49] LABS: Basophils # 0.1 10*3/uL (0.0-0.2); Basophils % 1.2 % (0.0-0.8); Eosinophils # 0.3 10*3/uL (0.0-0.87); Eosinophils % 5.6 % (0.00-10.9); Hematocrit 32.1 VOL% (42.0-52.0); Hemoglobin 9.7 GM/DL (14.0-18.0); Immature Granulocytes % 0.2 %; Immature Granulocytes Absolute 0.01 #; Lymphocytes # 1.7 10*3/uL (1.4-4.0); Lymphocytes % 32.9 % (21.2-54.2); Mean Corpuscular HGB Conc 30.2 GM/DL (32-36); Mean Corpuscular Volume 88.9 FL (87-102); Mean Platelet Volume 10.1 FL (9.6-12.0); Neutrophils % 43.1 % (38.7-73.9); Platelet Count 105 T/CUMM (130-400); Red Blood Count 3.61 MC/CUMM (3.8-5.5); White Blood Count 5.2 T/CUMM (4-12)
[2020-05-12] MEDS ORDERED: NITROGLYCERIN SL 0.4 MG TABLET SL PRN (00:56)
[2020-05-12] MEDS: MORPHINE 4 MG/1 ML VIAL IV PRN ×2 (01:08→09:50)
[2020-05-12 01:16] LABS: Eosinophils 6 % (0-10); Lymphocytes 33 % (20-55); Platelet Estimate Adequate; Segmented Neutrophils 51 % (50-85); Total Cells Counted 100
[2020-05-12 01:18] LABS: Bilirubin,Total 0.8 MG/DL (0.2-1.0); Calcium 8.3 MG/DL (8.5-10.1); Hypochromasia Slight; Risk Ratio 3.7; Thyroid Stimulating Hormone 5.01 uIU/ml (0.358-3.74); VLDL CHOLESTEROL 20.2 MG/DL
[2020-05-12] MEDS ORDERED: LORazepam 2 MG/1 ML VIAL IV ONE (01:39)
[2020-05-12] MEDS ORDERED: ONDANSETRON 4 MG/2 ML VIAL IV PRN (04:37)
[2020-05-12] MEDS: hydrALAZINE 20 MG/1 ML VIAL IV PRN ×2 (04:58→17:15)
[2020-05-12] MEDS ORDERED: PROMETHAZINE 25 MG TABLET PO PRN (05:09)
[2020-05-12 08:13] LABS: INR 1.3; PT Patient Result 13.5 SECS (9.8-11.9)
[2020-05-12] MEDS ORDERED: CIPROFLOXACIN 500 MG TABLET PO SCH (12:30)
[2020-05-12 14:07] LABS: Hepatitis B Core IgM Quant 0.15 Index; Hepatitis B Surface Ag Quant < 0.10 Index; Hepatitis B Surface Ag Result Negative (Negative); Hepatitis C Virus Ab Quant 0.02 Index; Hepatitis C Virus Ab Result Negative (Negative)
[2020-05-12 16:29] VITALS: BP 159/111
[2020-05-13] MEDS ORDERED: LOSARTAN 50 MG TABLET PO SCH (09:00)
[2020-05-13] MEDS ORDERED: PANTOPRAZOLE 20 MG TABLET PO SCH (09:00)
[2020-05-13] MEDS ORDERED: MULTIVITAMIN (BEROCCA) TABLET PO SCH (09:00)
[2020-05-13] MEDS ORDERED: ISOSORBIDE MONONITRATE 60 MG TABLET PO SCH (09:00)
== END 2020-05-12 18:44 | disposition home or self-care (01) ==
LOC: INTOOBSV 23:33 → SUATTDRO 23:33 → N.TELES 23:33
PROVIDERS: ADMIT Internal Medicine; ATTEND Internal Medicine Geriatric Medicine

== ENCOUNTER 2020-05-26 00:02 | Observation (INO) ==
[2020-05-26] MEDS ORDERED: NITROGLYCERIN SL 0.4 MG TABLET SL STA (00:56)
[2020-05-26] MEDS ORDERED: MORPHINE 4 MG/1 ML VIAL IV ONE (00:57)
[2020-05-26 02:26] LABS: Basophils # 0.1 10*3/uL (0.0-0.2); Basophils % 1.6 % (0.0-0.8); Eosinophils # 0.2 10*3/uL (0.0-0.87); Eosinophils % 3.8 % (0.00-10.9); Hematocrit 36.1 VOL% (42.0-52.0); Hemoglobin 10.9 GM/DL (14.0-18.0); Immature Granulocytes % 0.3 %; Immature Granulocytes Absolute 0.02 #; Lymphocytes # 1.9 10*3/uL (1.4-4.0); Lymphocytes % 32.2 % (21.2-54.2); Mean Corpuscular HGB Conc 30.2 GM/DL (32-36); Mean Corpuscular Volume 88.5 FL (87-102); Mean Platelet Volume 10.8 FL (9.6-12.0); Monocytes % 13.7 % (1.7-12.7); NRBC # 0.05 10*3/uL; Neutrophils % 48.4 % (38.7-73.9); Platelet Count 144 T/CUMM (130-400); Red Blood Count 4.08 MC/CUMM (3.8-5.5); Red Cell Distribution Width 20.3 % (9.3-17.3); White Blood Count 5.8 T/CUMM (4-12)
[2020-05-26] MEDS ORDERED: LORazepam 2 MG/1 ML VIAL IV STA (02:40)
[2020-05-26] MEDS ORDERED: METOPROLOL TARTRATE 25 MG TABLET PO STA (02:40)
[2020-05-26 02:51] LABS: Alanine Aminotransferase 10 U/L (16-61); Albumin 3.5 G/DL (3.4-5.0); Alkaline Phosphatase 156 U/L (45-117); Amylase 119 U/L (25-115); Aspartate Amino Transferase 26 U/L (0-37); Blood Urea Nitrogen 27 MG/DL (7-18); Calcium 9.5 MG/DL (8.5-10.1); Estimated Glom Filtration Rate 9 ML/MIN; Glucose 79 MG/DL (74-106); Osmolality,Calculated 276.8 MOS/KG (273-304); Total Protein 7.7 G/DL (6.4-8.3)
[2020-05-26 02:52] LABS: INR 1.2; PT Patient Result 13.2 SECS (9.8-11.9); Partial Thromboplastin Time 32.6 SECS (23.9-33.8)
[2020-05-26] MEDS ORDERED: DEXTROSE 50% 25 GM/50 ML VIAL IV PRN (03:37)
[2020-05-26] MEDS ORDERED: guaiFENesin/DM ER 600-30 MG TABLET PO PRN (03:37)
[2020-05-26] MEDS ORDERED: hydrALAZINE 20 MG/1 ML VIAL IV PRN (03:37)
[2020-05-26] MEDS ORDERED: GLUCAGON 1 MG VIAL IM PRN (03:37)
[2020-05-26] MEDS ORDERED: NICOTINE 21 MG/24 HR PATCH TRANSDERM PRN ×2 (03:37→06:50)
[2020-05-26 04:26] LABS: Anisocytosis 1+; Eosinophils 3 % (0-10); Hypochromasia 2+; Lymphocytes 31 % (20-55); Macrocytosis 1+; Nucleated Red Blood Cells 4 (0-5); Polychromasia Few; Segmented Neutrophils 51 % (50-85); Target Cells 1+; Total Cells Counted 100
[2020-05-26 04:27] LABS: Platelet Estimate Adequate
[2020-05-26] MEDS: ALBUTEROL/IPRATROPIUM 3 ML NEB RESP TX SCH ×3 (07:50→19:50)
[2020-05-26] MEDS: ISOSORBIDE MONONITRATE 60 MG TABLET PO SCH (10:27)
[2020-05-26] MEDS: MULTIVITAMIN (BEROCCA) TABLET PO SCH (10:27)
[2020-05-26] MEDS: MORPHINE 4 MG/1 ML VIAL IV PRN ×2 (11:27→19:57)
[2020-05-26] MEDS: METOPROLOL SUCCINATE XL 50 MG TABLET PO SCH (13:41)
[2020-05-26 14:28] LABS: Hepatitis B Surface Ab Result Positive; Hepatitis B Surface Ag Quant < 0.10 Index; Hepatitis B Surface Ag Result Negative (Negative)
[2020-05-27] MEDS: ALBUTEROL/IPRATROPIUM 3 ML NEB RESP TX SCH ×4 (01:05→20:00)
[2020-05-27] MEDS: MORPHINE 4 MG/1 ML VIAL IV PRN ×5 (04:10→21:39)
[2020-05-27] MEDS: MULTIVITAMIN (BEROCCA) TABLET PO SCH (08:58)
[2020-05-27] MEDS: METOPROLOL SUCCINATE XL 50 MG TABLET PO SCH (08:58)
[2020-05-27] MEDS: ISOSORBIDE MONONITRATE 60 MG TABLET PO SCH (08:58)
[2020-05-28] MEDS: ALBUTEROL/IPRATROPIUM 3 ML NEB RESP TX SCH ×4 (00:10→19:16)
[2020-05-28] MEDS: MULTIVITAMIN (BEROCCA) TABLET PO SCH (09:01)
[2020-05-28] MEDS: METOPROLOL SUCCINATE XL 50 MG TABLET PO SCH (09:01)
[2020-05-28] MEDS: ISOSORBIDE MONONITRATE 60 MG TABLET PO SCH (09:02)
[2020-05-28] MEDS: MORPHINE 4 MG/1 ML VIAL IV PRN ×3 (09:03→21:46)
[2020-05-28] MEDS ORDERED: LEVOFLOXACIN INJ 500 MG in PREMIX 1 EACH IV SCH (20:00)
[2020-05-28] MEDS ORDERED: CLORAZEPATE 3.75 MG TABLET PO PRN (22:47)
[2020-05-29] MEDS: ALBUTEROL/IPRATROPIUM 3 ML NEB RESP TX SCH ×3 (00:03→13:00)
[2020-05-29 08:23] VITALS: BP 135/94
[2020-05-29] MEDS: METOPROLOL SUCCINATE XL 50 MG TABLET PO SCH (08:35)
[2020-05-29] MEDS: MULTIVITAMIN (BEROCCA) TABLET PO SCH (08:35)
[2020-05-29] MEDS: ISOSORBIDE MONONITRATE 60 MG TABLET PO SCH (08:35)
[2020-05-29] MEDS: MORPHINE 4 MG/1 ML VIAL IV PRN (09:22)
== END 2020-05-29 18:53 | disposition home or self-care (01) ==
LOC: EDUNIT# → EDBD → N.ED 00:02 → N.EDINP 00:02 → SUATTDRO 03:37 → N.TELES 12:02
PROVIDERS: ADMIT Hospitalist; ATTEND Internal Medicine

== ENCOUNTER 2020-07-12 00:50 | Observation (INO) ==
[2020-07-12] MEDS ORDERED: GLUCAGON 1 MG VIAL IM PRN (02:27)
[2020-07-12] MEDS ORDERED: ACETAMINOPHEN 325 MG TABLET PO PRN (02:27)
[2020-07-12] MEDS ORDERED: DEXTROSE 50% 25 GM/50 ML VIAL IV PRN (02:27)
[2020-07-12] MEDS: HEPARIN 5,000 UNIT/1 ML VIAL SUBCUT SCH ×4 (04:45→21:31)
[2020-07-12] MEDS ORDERED: hydrALAZINE 20 MG/1 ML VIAL IV PRN (05:00)
[2020-07-12] MEDS: MORPHINE 4 MG/1 ML VIAL IV PRN ×3 (05:26→20:26)
[2020-07-12] MEDS ORDERED: diphenhydrAMINE CAP 25 MG CAPSULE PO PRN (06:29)
[2020-07-12] MEDS ORDERED: PANTOPRAZOLE 20 MG TABLET PO SCH (06:30)
[2020-07-12] MEDS: NITROGLYCERIN 2% OINT 1 INCH/GM PACK TOP SCH ×3 (06:41→18:29)
[2020-07-12] MEDS ORDERED: CLOPIDOGREL 75 MG TABLET PO SCH (09:00)
[2020-07-12] MEDS: LOSARTAN 25 MG TABLET PO SCH ×2 (09:08→21:29)
[2020-07-12] MEDS: METOPROLOL TARTRATE 100 MG TABLET PO SCH (09:09)
[2020-07-12] MEDS: hydrALAZINE 25 MG TABLET PO SCH ×3 (09:09→21:30)
[2020-07-12 12:17] LABS: Basophils # 0.1 10*3/uL (0.0-0.2); Basophils % 1.5 % (0.0-0.8); Eosinophils # 0.9 10*3/uL (0.0-0.87); Hematocrit 32.5 VOL% (42.0-52.0); Hemoglobin 10.2 GM/DL (14.0-18.0); Immature Granulocytes % 0.2 %; Immature Granulocytes Absolute 0.01 #; Lymphocytes # 1.6 10*3/uL (1.4-4.0); Lymphocytes % 29.7 % (21.2-54.2); Mean Corpuscular HGB Conc 31.4 GM/DL (32-36); Mean Corpuscular Volume 83.5 FL (87-102); Mean Platelet Volume 9.4 FL (9.6-12.0); Monocytes % 10.4 % (1.7-12.7); Neutrophils % 42.2 % (38.7-73.9); Platelet Count 71 T/CUMM (130-400); Red Blood Count 3.89 MC/CUMM (3.8-5.5); Red Cell Distribution Width 18.4 % (9.3-17.3); White Blood Count 5.4 T/CUMM (4-12)
[2020-07-12 12:35] LABS: Albumin 2.7 G/DL (3.4-5.0); Bilirubin,Total 0.8 MG/DL (0.2-1.0); Calcium 8.2 MG/DL (8.5-10.1); Osmolality,Calculated 277.8 MOS/KG (273-304); Total Protein 6.4 G/DL (6.4-8.3)
[2020-07-12 12:54] LABS: Anisocytosis Slight; Eosinophils 21 % (0-10); Lymphocytes 24 % (20-55); Platelet Estimate Decreased; Reactive Lymphocytes Slight; Segmented Neutrophils 49 % (50-85); Total Cells Counted 100
[2020-07-12 12:55] LABS: Microcytosis Slight
[2020-07-12 14:32] LABS: Hepatitis B Core IgM Quant 0.09 Index; Hepatitis B Surface Ag Quant < 0.10 Index; Hepatitis B Surface Ag Result Negative (Negative); Hepatitis C Virus Ab Quant 0.09 Index; Hepatitis C Virus Ab Result Negative (Negative)
[2020-07-13] MEDS: NITROGLYCERIN 2% OINT 1 INCH/GM PACK TOP SCH ×2 (00:22→08:22)
[2020-07-13] MEDS: HEPARIN 5,000 UNIT/1 ML VIAL SUBCUT SCH ×3 (04:12→21:35)
[2020-07-13 05:41] LABS: Basophils # 0.1 10*3/uL (0.0-0.2); Basophils % 1.6 % (0.0-0.8); Eosinophils # 0.8 10*3/uL (0.0-0.87); Eosinophils % 15.9 % (0.00-10.9); Hematocrit 34.3 VOL% (42.0-52.0); Hemoglobin 10.7 GM/DL (14.0-18.0); Immature Granulocytes % 0.2 %; Immature Granulocytes Absolute 0.01 #; Lymphocytes # 1.4 10*3/uL (1.4-4.0); Lymphocytes % 28.3 % (21.2-54.2); Mean Corpuscular HGB Conc 31.2 GM/DL (32-36); Mean Corpuscular Volume 83.7 FL (87-102); Mean Platelet Volume 9.7 FL (9.6-12.0); Monocytes % 13.8 % (1.7-12.7); Neutrophils % 40.2 % (38.7-73.9); Red Cell Distribution Width 18.4 % (9.3-17.3); White Blood Count 4.9 T/CUMM (4-12)
[2020-07-13 05:42] LABS: Platelet Count 61 T/CUMM (130-400)
[2020-07-13] MEDS: MORPHINE 4 MG/1 ML VIAL IV PRN ×3 (05:43→19:54)
[2020-07-13 05:56] LABS: Calcium 8.4 MG/DL (8.5-10.1); Osmolality,Calculated 277.8 MOS/KG (273-304)
[2020-07-13 06:05] LABS: Eosinophils 13 % (0-10); Hypochromasia Slight; Lymphocytes 30 % (20-55); Microcytosis Slight; Platelet Estimate Decreased; Segmented Neutrophils 47 % (50-85); Total Cells Counted 100
[2020-07-13] MEDS: hydrALAZINE 25 MG TABLET PO SCH ×3 (09:21→21:24)
[2020-07-13] MEDS: METOPROLOL TARTRATE 100 MG TABLET PO SCH ×2 (09:22→21:25)
[2020-07-13] MEDS: LOSARTAN 25 MG TABLET PO SCH ×2 (09:22→21:25)
[2020-07-13 11:39] LABS: INR 1.3; PT Patient Result 13.5 SECS (9.8-11.9)
[2020-07-14] MEDS: MORPHINE 4 MG/1 ML VIAL IV PRN ×2 (03:42→12:32)
[2020-07-14] MEDS: HEPARIN 5,000 UNIT/1 ML VIAL SUBCUT SCH ×2 (04:30→13:12)
[2020-07-14 10:16] LABS: Basophils # 0.1 10*3/uL (0.0-0.2); Basophils % 1.7 % (0.0-0.8); Eosinophils # 0.3 10*3/uL (0.0-0.87); Eosinophils % 11.9 % (0.00-10.9); Hematocrit 33.3 VOL% (42.0-52.0); Hemoglobin 10.5 GM/DL (14.0-18.0); Immature Granulocytes % 0.3 %; Immature Granulocytes Absolute 0.01 #; Lymphocytes # 0.9 10*3/uL (1.4-4.0); Lymphocytes % 31.1 % (21.2-54.2); Mean Corpuscular HGB Conc 31.5 GM/DL (32-36); Mean Corpuscular Volume 83.3 FL (87-102); Mean Platelet Volume 10.3 FL (9.6-12.0); Monocytes % 5.9 % (1.7-12.7); Neutrophils % 49.1 % (38.7-73.9); Platelet Count 68 T/CUMM (130-400); White Blood Count 2.9 T/CUMM (4-12)
[2020-07-14 10:43] LABS: Calcium 8.5 MG/DL (8.5-10.1)
[2020-07-14 11:04] LABS: Anisocytosis 1+; Eosinophils 19 % (0-10); Lymphocytes 29 % (20-55); Macrocytosis Slight; Ovalocytes Few; Platelet Estimate Decreased; Poikilocytosis 1+; Segmented Neutrophils 46 % (50-85); Tear Drop Cells Few; Total Cells Counted 100
[2020-07-14] MEDS: hydrALAZINE 25 MG TABLET PO SCH ×2 (12:26→16:27)
[2020-07-14] MEDS: METOPROLOL TARTRATE 100 MG TABLET PO SCH (12:26)
[2020-07-14] MEDS: LOSARTAN 25 MG TABLET PO SCH (12:27)
[2020-07-14 16:00] VITALS: BP 128/88
== END 2020-07-14 17:35 | disposition home or self-care (01) ==
LOC: N.TELES → SUATTDRO 02:07
PROVIDERS: ADMIT Internal Medicine; ATTEND Internal Medicine

== ENCOUNTER 2020-10-22 01:29 | Observation (INO) ==
[2020-10-22 02:47] LABS: Basophils # 0.1 10*3/uL (0.0-0.2); Basophils % 1.2 % (0.0-0.8); Eosinophils # 0.4 10*3/uL (0.0-0.87); Eosinophils % 5.6 % (0.00-10.9); Hematocrit 29.7 VOL% (42.0-52.0); Immature Granulocytes % 0.3 %; Immature Granulocytes Absolute 0.02 #; Lymphocytes # 1.6 10*3/uL (1.4-4.0); Lymphocytes % 25.4 % (21.2-54.2); Mean Corpuscular HGB Conc 30.3 GM/DL (32-36); Mean Platelet Volume 9.5 FL (9.6-12.0); Monocytes % 10.8 % (1.7-12.7); NRBC # 0.02 10*3/uL; Neutrophils % 56.7 % (38.7-73.9); Platelet Count 76 T/CUMM (130-400); Red Cell Distribution Width 20.9 % (9.3-17.3); White Blood Count 6.4 T/CUMM (4-12)
[2020-10-22 03:14] LABS: Albumin 2.9 G/DL (3.4-5.0); Bilirubin,Total 0.8 MG/DL (0.2-1.0); Calcium 8.6 MG/DL (8.5-10.1); Osmolality,Calculated 275.2 MOS/KG (273-304); Potassium 3.9 MMOL/L (3.5-5.1); Total Protein 7.5 G/DL (6.4-8.3)
[2020-10-22] MEDS ORDERED: DEXTROSE 50% 25 GM/50 ML VIAL IV PRN (03:54)
[2020-10-22] MEDS ORDERED: GLUCAGON 1 MG VIAL IM PRN (03:54)
[2020-10-22] MEDS ORDERED: ONDANSETRON 4 MG/2 ML VIAL IV PRN (03:54)
[2020-10-22] MEDS ORDERED: PROMETHAZINE 25 MG/1 ML VIAL IM PRN (04:06)
[2020-10-22] MEDS ORDERED: HYDROmorphone 2 MG/1 ML VIAL IV STA (04:24)
[2020-10-22] MEDS ORDERED: ONDANSETRON 4 MG/2 ML VIAL IV ONE (04:24)
[2020-10-22] MEDS ORDERED: PROMETHAZINE 25 MG/1 ML VIAL IM STA (04:36)
[2020-10-22 05:41] LABS: Eosinophils 7 % (0-10); Lymphocytes 21 % (20-55); Segmented Neutrophils 72 % (50-85); Total Cells Counted 100
[2020-10-22 05:42] LABS: Anisocytosis 1+
[2020-10-22 05:43] LABS: Microcytosis 2+; Ovalocytes Slight; Polychromasia 1+
[2020-10-22 05:44] LABS: Schistocytes 1+
[2020-10-22 05:45] LABS: Burr Cells Few
[2020-10-22 05:47] LABS: Platelet Estimate Decreased
[2020-10-22] MEDS: HEPARIN 5,000 UNIT/1 ML VIAL SUBCUT SCH ×3 (06:33→22:20)
[2020-10-22] MEDS ORDERED: METOPROLOL SUCCINATE XL 100 MG TABLET PO SCH ×2 (09:00→21:00)
[2020-10-22] MEDS: hydrALAZINE 25 MG TABLET PO SCH ×2 (09:37→15:06)
[2020-10-22] MEDS: MULTIVITAMIN (BEROCCA) TABLET PO SCH (09:37)
[2020-10-22] MEDS: ASPIRIN EC 81 MG TABLET PO SCH (09:38)
[2020-10-22] MEDS: HYDROmorphone 2 MG/1 ML VIAL IV PRN ×3 (09:39→22:36)
[2020-10-22] MEDS: ISOSORBIDE MONONITRATE 60 MG TABLET PO SCH (09:43)
[2020-10-23] MEDS: HYDROmorphone 2 MG/1 ML VIAL IV PRN ×3 (03:41→18:05)
[2020-10-23] MEDS: hydrALAZINE 25 MG TABLET PO SCH ×4 (03:54→22:19)
[2020-10-23] MEDS: HEPARIN 5,000 UNIT/1 ML VIAL SUBCUT SCH ×3 (06:35→22:18)
[2020-10-23] MEDS: MULTIVITAMIN (BEROCCA) TABLET PO SCH (09:13)
[2020-10-23] MEDS: ASPIRIN EC 81 MG TABLET PO SCH (09:14)
[2020-10-23 12:56] LABS: Basophils # 0.1 10*3/uL (0.0-0.2); Basophils % 1.5 % (0.0-0.8); Eosinophils # 0.6 10*3/uL (0.0-0.87); Eosinophils % 9.3 % (0.00-10.9); Hematocrit 27.1 VOL% (42.0-52.0); Hemoglobin 8.5 GM/DL (14.0-18.0); Immature Granulocytes % 0.3 %; Immature Granulocytes Absolute 0.02 #; Lymphocytes # 1.8 10*3/uL (1.4-4.0); Lymphocytes % 29.6 % (21.2-54.2); Mean Corpuscular HGB Conc 31.4 GM/DL (32-36); Mean Corpuscular Volume 87.4 FL (87-102); Mean Platelet Volume 9.9 FL (9.6-12.0); Monocytes % 15.9 % (1.7-12.7); NRBC # 0.02 10*3/uL; Neutrophils % 43.4 % (38.7-73.9); White Blood Count 5.9 T/CUMM (4-12)
[2020-10-23 12:57] LABS: Platelet Count 101 T/CUMM (130-400)
[2020-10-23 13:04] LABS: INR 1.4; PT Patient Result 14.3 SECS (9.8-11.9)
[2020-10-23 13:28] LABS: Band Neutrophils 4 % (0-10); Eosinophils 8 % (0-10); Lymphocytes 26 % (20-55); Nucleated Red Blood Cells 1 (0-5); Platelet Estimate Adequate; Segmented Neutrophils 47 % (50-85); Smudge Cells Few; Total Cells Counted 100
[2020-10-23 13:29] LABS: Anisocytosis 3+; Atypical Lymphocytes Few; Burr Cells Few; Macrocytosis 1+; Ovalocytes Few; Poikilocytosis 1+; Polychromasia 1+; Tear Drop Cells Few
[2020-10-23 13:37] LABS: Calcium 7.7 MG/DL (8.5-10.1); Osmolality,Calculated 277.4 MOS/KG (273-304); Potassium 5.3 MMOL/L (3.5-5.1)
[2020-10-23] MEDS: ISOSORBIDE MONONITRATE 60 MG TABLET PO SCH (17:58)
[2020-10-23] MEDS: METOPROLOL SUCCINATE XL 100 MG TABLET PO SCH (17:58)
[2020-10-24] MEDS: HYDROmorphone 2 MG/1 ML VIAL IV PRN ×2 (01:29→10:14)
[2020-10-24] MEDS: HEPARIN 5,000 UNIT/1 ML VIAL SUBCUT SCH ×2 (05:51→13:29)
[2020-10-24 06:05] LABS: Basophils # 0.1 10*3/uL (0.0-0.2); Basophils % 1.4 % (0.0-0.8); Eosinophils # 0.4 10*3/uL (0.0-0.87); Eosinophils % 8.1 % (0.00-10.9); Hematocrit 23.4 VOL% (42.0-52.0); Hemoglobin 7.2 GM/DL (14.0-18.0); Immature Granulocytes % 0.4 %; Immature Granulocytes Absolute 0.02 #; Lymphocytes # 1.5 10*3/uL (1.4-4.0); Lymphocytes % 29.6 % (21.2-54.2); Mean Corpuscular HGB Conc 30.8 GM/DL (32-36); Mean Corpuscular Volume 89.7 FL (87-102); Mean Platelet Volume 10.3 FL (9.6-12.0); Monocytes % 15.7 % (1.7-12.7); NRBC # 0.02 10*3/uL; Neutrophils % 44.8 % (38.7-73.9); Platelet Count 69 T/CUMM (130-400); Red Blood Count 2.61 MC/CUMM (3.8-5.5)
[2020-10-24 06:10] LABS: INR 1.3; PT Patient Result 13.8 SECS (9.8-11.9)
[2020-10-24 06:25] LABS: Calcium 7.6 MG/DL (8.5-10.1); Osmolality,Calculated 279.7 MOS/KG (273-304); Potassium 3.7 MMOL/L (3.5-5.1)
[2020-10-24 06:26] LABS: Eosinophils 13 % (0-10); Lymphocytes 31 % (20-55); Segmented Neutrophils 44 % (50-85); Total Cells Counted 100
[2020-10-24 06:27] LABS: Hypochromasia 2+; Microcytosis 1+; Platelet Estimate Decreased
[2020-10-24] MEDS ORDERED: TISSUE ADHESIVE 1 EACH APPLICATOR TOP ONE (09:45)
[2020-10-24] MEDS: METOPROLOL SUCCINATE XL 100 MG TABLET PO SCH (10:11)
[2020-10-24] MEDS: MULTIVITAMIN (BEROCCA) TABLET PO SCH (10:11)
[2020-10-24] MEDS: ASPIRIN EC 81 MG TABLET PO SCH (10:12)
[2020-10-24] MEDS: ISOSORBIDE MONONITRATE 60 MG TABLET PO SCH (10:12)
[2020-10-24] MEDS: hydrALAZINE 25 MG TABLET PO SCH ×2 (10:13→15:43)
[2020-10-24 12:24] VITALS: BP 101/66
== END 2020-10-24 15:56 | disposition home or self-care (01) ==
LOC: EDUNIT# → EDBD → N.ED 01:29 → N.EDINP 01:29 → SUATTDRO 03:54 → N.EDINP 05:40 → N.TELEN 05:58
PROVIDERS: ADMIT Internal Medicine; ATTEND Internal Medicine

== ENCOUNTER 2020-12-27 00:04 | Observation (INO) ==
[2020-12-27] MEDS ORDERED: HYDROmorphone 2 MG/1 ML VIAL IV STA (00:35)
[2020-12-27] MEDS ORDERED: PROMETHAZINE 25 MG/1 ML VIAL IM STA (00:35)
[2020-12-27 02:06] LABS: Basophils # 0.1 10*3/uL (0.0-0.2); Basophils % 0.9 % (0.0-0.8); Eosinophils # 0.2 10*3/uL (0.0-0.87); Hematocrit 30.4 VOL% (42.0-52.0); Hemoglobin 9.4 GM/DL (14.0-18.0); Immature Granulocytes % 0.2 %; Immature Granulocytes Absolute 0.01 #; Lymphocytes # 1.6 10*3/uL (1.4-4.0); Lymphocytes % 29.1 % (21.2-54.2); Mean Corpuscular HGB Conc 30.9 GM/DL (32-36); Mean Corpuscular Volume 87.4 FL (87-102); Mean Platelet Volume 10.7 FL (9.6-12.0); Monocytes % 17.4 % (1.7-12.7); Neutrophils % 48.4 % (38.7-73.9); Platelet Count 110 T/CUMM (130-400); Red Blood Count 3.48 MC/CUMM (3.8-5.5); Red Cell Distribution Width 19.1 % (9.3-17.3); White Blood Count 5.5 T/CUMM (4-12)
[2020-12-27 02:30] LABS: Albumin 2.8 G/DL (3.4-5.0); Bilirubin,Total 0.5 MG/DL (0.2-1.0); Calcium 9.8 MG/DL (8.5-10.1); Potassium 4.5 MMOL/L (3.5-5.1)
[2020-12-27 02:40] LABS: Eosinophils 1 % (0-10); Hypochromasia Slight; Lymphocytes 30 % (20-55); Nucleated Red Blood Cells 1 (0-5); Ovalocytes Few; Platelet Estimate Normal; Segmented Neutrophils 58 % (50-85); Total Cells Counted 100
[2020-12-27] MEDS ORDERED: diphenhydrAMINE 50 MG/1 ML VIAL IV STA (03:05)
[2020-12-27] MEDS ORDERED: methylPREDNISolone SOD SUC 125 MG/2 ML VIAL IV STA (03:05)
[2020-12-27] MEDS ORDERED: GLUCAGON 1 MG VIAL IM PRN (05:33)
[2020-12-27] MEDS ORDERED: DOCUSATE SODIUM 100 MG CAPSULE PO PRN (05:33)
[2020-12-27] MEDS ORDERED: ACETAMINOPHEN 325 MG TABLET PO PRN (05:33)
[2020-12-27] MEDS ORDERED: hydrALAZINE 20 MG/1 ML VIAL IV PRN (05:33)
[2020-12-27] MEDS ORDERED: DEXTROSE 50% 25 GM/50 ML VIAL IV PRN (05:33)
[2020-12-27] MEDS ORDERED: PROMETHAZINE 25 MG/1 ML VIAL IM PRN (05:39)
[2020-12-27 08:30] LABS: INR 1.3; PT Patient Result 13.4 SECS (9.8-11.9)
[2020-12-27] MEDS ORDERED: EPOETIN ALFA-EPBX 2,000 UNIT/ML VIAL IV PRN (13:30)
[2020-12-27] MEDS: MORPHINE 4 MG/1 ML VIAL IV PRN (18:54)
[2020-12-28] MEDS: MORPHINE 4 MG/1 ML VIAL IV PRN ×3 (04:30→22:36)
[2020-12-28 05:11] LABS: Basophils % 0.3 % (0.0-0.8); Eosinophils % 0.3 % (0.00-10.9); Hematocrit 30.5 VOL% (42.0-52.0); Hemoglobin 9.4 GM/DL (14.0-18.0); Immature Granulocytes % 0.3 %; Immature Granulocytes Absolute 0.02 #; Lymphocytes # 1.4 10*3/uL (1.4-4.0); Lymphocytes % 23.8 % (21.2-54.2); Mean Corpuscular HGB Conc 30.8 GM/DL (32-36); Mean Corpuscular Volume 86.2 FL (87-102); Mean Platelet Volume 10.1 FL (9.6-12.0); Monocytes % 17.7 % (1.7-12.7); Neutrophils % 57.6 % (38.7-73.9); Platelet Count 111 T/CUMM (130-400); Red Blood Count 3.54 MC/CUMM (3.8-5.5); White Blood Count 5.8 T/CUMM (4-12)
[2020-12-28 05:29] LABS: Calcium 9.3 MG/DL (8.5-10.1); Potassium 4.2 MMOL/L (3.5-5.1)
[2020-12-28 05:34] LABS: Hypochromasia 1+; Lymphocytes 20 % (20-55); Microcytosis 1+; Segmented Neutrophils 65 % (50-85); Total Cells Counted 100
[2020-12-28 05:35] LABS: Ovalocytes Few; Polychromasia Slight; Tear Drop Cells Slight
[2020-12-28 05:36] LABS: Platelet Estimate Adequate
[2020-12-28] MEDS: MULTIVITAMIN (BEROCCA) TABLET PO SCH (09:39)
[2020-12-28] MEDS: METOPROLOL SUCCINATE XL 50 MG TABLET PO SCH (09:39)
[2020-12-28] MEDS: ASPIRIN EC 81 MG TABLET PO SCH (09:39)
[2020-12-29] MEDS: MORPHINE 4 MG/1 ML VIAL IV PRN ×2 (06:45→14:27)
[2020-12-29 11:05] LABS: Basophils # 0.1 10*3/uL (0.0-0.2); Eosinophils # 0.2 10*3/uL (0.0-0.87); Eosinophils % 4.6 % (0.00-10.9); Hematocrit 29.4 VOL% (42.0-52.0); Hemoglobin 9.3 GM/DL (14.0-18.0); Immature Granulocytes % 0.4 %; Immature Granulocytes Absolute 0.02 #; Lymphocytes # 1.8 10*3/uL (1.4-4.0); Lymphocytes % 36.7 % (21.2-54.2); Mean Corpuscular HGB Conc 31.6 GM/DL (32-36); Mean Corpuscular Volume 84.5 FL (87-102); Mean Platelet Volume 10.1 FL (9.6-12.0); Monocytes % 15.7 % (1.7-12.7); Neutrophils % 41.6 % (38.7-73.9); Platelet Count 115 T/CUMM (130-400); Red Blood Count 3.48 MC/CUMM (3.8-5.5); Red Cell Distribution Width 18.9 % (9.3-17.3)
[2020-12-29 11:19] LABS: Calcium 8.7 MG/DL (8.5-10.1); Potassium 3.8 MMOL/L (3.5-5.1)
[2020-12-29 11:28] LABS: Eosinophils 5 % (0-10); Hypochromasia 1+; Lymphocytes 41 % (20-55); Microcytosis 1+; Nucleated Red Blood Cells 1 (0-5); Segmented Neutrophils 46 % (50-85); Total Cells Counted 100
[2020-12-29 11:29] LABS: Ovalocytes Few; Platelet Estimate Adequate; Polychromasia Slight
[2020-12-29] MEDS: MULTIVITAMIN (BEROCCA) TABLET PO SCH (14:26)
[2020-12-29] MEDS: METOPROLOL SUCCINATE XL 50 MG TABLET PO SCH (14:27)
[2020-12-29] MEDS: ASPIRIN EC 81 MG TABLET PO SCH (14:27)
[2020-12-29 16:38] VITALS: BP 123/90
== END 2020-12-29 18:11 | disposition home or self-care (01) ==
LOC: EDUNIT# → EDBD → SUATTDRO → N.EDINP 00:04 → N.ED 00:04 → N.EDINP 08:16 → N.TELEN 08:23
PROVIDERS: ADMIT Internal Medicine; ATTEND Internal Medicine

== ENCOUNTER 2021-01-01 00:36 | Observation (INO) ==
[2021-01-01] MEDS ORDERED: DOCUSATE SODIUM 100 MG CAPSULE PO PRN (03:40)
[2021-01-01] MEDS ORDERED: ACETAMINOPHEN 325 MG TABLET PO PRN (03:40)
[2021-01-01] MEDS ORDERED: hydrALAZINE 20 MG/1 ML VIAL IV PRN (03:40)
[2021-01-01] MEDS ORDERED: DEXTROSE 50% 25 GM/50 ML VIAL IV PRN (03:40)
[2021-01-01] MEDS ORDERED: GLUCAGON 1 MG VIAL IM PRN (03:40)
[2021-01-01] MEDS ORDERED: NITROGLYCERIN SL 0.4 MG TABLET SL PRN (04:31)
[2021-01-01] MEDS ORDERED: METOPROLOL TARTRATE 5 MG/5 ML VIAL IV ONE (04:47)
[2021-01-01] MEDS: HYDROmorphone 2 MG/1 ML VIAL IV PRN ×3 (05:13→17:53)
[2021-01-01] MEDS: PROMETHAZINE 25 MG/1 ML VIAL IM PRN (06:32)
[2021-01-01] MEDS ORDERED: hydrALAZINE 25 MG TABLET PO SCH (09:00)
[2021-01-01] MEDS ORDERED: METOPROLOL SUCCINATE XL 50 MG TABLET PO SCH (09:00)
[2021-01-01] MEDS ORDERED: EPOETIN ALFA-EPBX 2,000 UNIT/ML VIAL IV PRN (10:28)
[2021-01-01 14:07] LABS: Basophils # 0.1 10*3/uL (0.0-0.2); Basophils % 0.9 % (0.0-0.8); Eosinophils # 0.3 10*3/uL (0.0-0.87); Eosinophils % 4.9 % (0.00-10.9); Hematocrit 30.4 VOL% (42.0-52.0); Hemoglobin 9.2 GM/DL (14.0-18.0); Immature Granulocytes % 0.4 %; Immature Granulocytes Absolute 0.02 #; Lymphocytes # 1.9 10*3/uL (1.4-4.0); Lymphocytes % 35.5 % (21.2-54.2); Mean Corpuscular HGB Conc 30.3 GM/DL (32-36); Mean Corpuscular Volume 87.1 FL (87-102); Mean Platelet Volume 9.7 FL (9.6-12.0); Neutrophils % 42.3 % (38.7-73.9); Platelet Count 131 T/CUMM (130-400); Red Blood Count 3.49 MC/CUMM (3.8-5.5); Red Cell Distribution Width 18.9 % (9.3-17.3); White Blood Count 5.3 T/CUMM (4-12)
[2021-01-01 14:29] LABS: Albumin 2.8 G/DL (3.4-5.0); Bilirubin,Total 1.1 MG/DL (0.2-1.0); Calcium 8.6 MG/DL (8.5-10.1); Osmolality,Calculated 283.1 MOS/KG (273-304); Potassium 4.7 MMOL/L (3.5-5.1); Total Protein 6.4 G/DL (6.4-8.2)
[2021-01-01 14:30] LABS: Hypochromasia 1+; Microcytosis 1+; Ovalocytes Slight; Platelet Estimate Adequate
[2021-01-01 15:02] LABS: Hepatitis B Core IgM Quant 0.08 Index; Hepatitis B Surface Ag Quant < 0.10 Index; Hepatitis B Surface Ag Result Non-Reactive (NonReactive); Hepatitis C Virus Ab Quant 0.07 Index; Hepatitis C Virus Ab Result Non-Reactive (NonReactive)
[2021-01-01] MEDS: ASPIRIN EC 81 MG TABLET PO SCH (17:38)
[2021-01-01] MEDS: METOPROLOL SUCCINATE XL 100 MG TABLET PO SCH (17:38)
[2021-01-01] MEDS: ASCORBIC ACID 500 MG TABLET PO SCH (17:39)
[2021-01-01] MEDS: ISOSORBIDE MONONITRATE 30 MG TABLET PO SCH (17:39)
[2021-01-01] MEDS ORDERED: METOPROLOL TARTRATE 5 MG/5 ML VIAL IV PRN (18:34)
[2021-01-01] MEDS: MORPHINE 4 MG/1 ML VIAL IV PRN (20:17)
[2021-01-02] MEDS: HYDROmorphone 2 MG/1 ML VIAL IV PRN ×3 (05:59→22:48)
[2021-01-02] MEDS ORDERED: DIGOXIN 0.5 MG/2 ML AMP IV ONE ×2 (07:53→12:33)
[2021-01-02 08:51] LABS: Basophils # 0.1 10*3/uL (0.0-0.2); Basophils % 1.2 % (0.0-0.8); Eosinophils # 0.3 10*3/uL (0.0-0.87); Eosinophils % 4.9 % (0.00-10.9); Immature Granulocytes % 0.3 %; Immature Granulocytes Absolute 0.02 #; Lymphocytes # 1.8 10*3/uL (1.4-4.0); Lymphocytes % 30.1 % (21.2-54.2); Mean Corpuscular HGB Conc 29.7 GM/DL (32-36); Mean Platelet Volume 9.8 FL (9.6-12.0); Monocytes % 16.1 % (1.7-12.7); Neutrophils % 47.4 % (38.7-73.9); Platelet Count 152 T/CUMM (130-400); Red Cell Distribution Width 19.3 % (9.3-17.3); White Blood Count 5.9 T/CUMM (4-12)
[2021-01-02 08:52] LABS: Hemoglobin 10.7 GM/DL (14.0-18.0)
[2021-01-02 09:10] LABS: Eosinophils 7 % (0-10); Hypochromasia Slight; Lymphocytes 29 % (20-55); Ovalocytes Slight; Platelet Estimate Adequate; Segmented Neutrophils 46 % (50-85); Total Cells Counted 100
[2021-01-02 09:11] LABS: Microcytosis 1+
[2021-01-02 09:13] LABS: Osmolality,Calculated 270.7 MOS/KG (273-304); Potassium 5.3 MMOL/L (3.5-5.1)
[2021-01-02] MEDS: ASCORBIC ACID 500 MG TABLET PO SCH (09:19)
[2021-01-02] MEDS: METOPROLOL SUCCINATE XL 100 MG TABLET PO SCH (09:19)
[2021-01-02] MEDS: ISOSORBIDE MONONITRATE 30 MG TABLET PO SCH (09:20)
[2021-01-02] MEDS: ASPIRIN EC 81 MG TABLET PO SCH (09:20)
[2021-01-02 10:38] LABS: Free T4 (Free Thyroxine) 1.05 NG/DL (0.76-1.46)
[2021-01-02] MEDS: CLOPIDOGREL 75 MG TABLET PO SCH (14:05)
[2021-01-02] MEDS: MORPHINE 4 MG/1 ML VIAL IV PRN (16:49)
[2021-01-03] MEDS: HYDROmorphone 2 MG/1 ML VIAL IV PRN ×3 (05:32→20:35)
[2021-01-03] MEDS: LEVOTHYROXINE 50 MCG TABLET PO SCH (06:17)
[2021-01-03] MEDS ORDERED: INFLUENZA VIRUS VACCINE 0.5 ML SYRINGE IM ONE (09:00)
[2021-01-03] MEDS: MORPHINE 4 MG/1 ML VIAL IV PRN (09:02)
[2021-01-03 10:44] LABS: Basophils % 1.1 % (0.0-0.8); Eosinophils # 0.2 10*3/uL (0.0-0.87); Eosinophils % 6.1 % (0.00-10.9); Hematocrit 27.3 VOL% (42.0-52.0); Immature Granulocytes % 0.3 %; Immature Granulocytes Absolute 0.01 #; Lymphocytes # 1.4 10*3/uL (1.4-4.0); Lymphocytes % 35.5 % (21.2-54.2); Mean Corpuscular HGB Conc 31.1 GM/DL (32-36); Mean Corpuscular Volume 84.8 FL (87-102); Mean Platelet Volume 9.4 FL (9.6-12.0); Monocytes % 11.6 % (1.7-12.7); Neutrophils % 45.4 % (38.7-73.9); Platelet Count 124 T/CUMM (130-400); Red Blood Count 3.22 MC/CUMM (3.8-5.5); Red Cell Distribution Width 18.6 % (9.3-17.3)
[2021-01-03 10:45] LABS: Hemoglobin 8.5 GM/DL (14.0-18.0); White Blood Count 3.8 T/CUMM (4-12)
[2021-01-03 11:03] LABS: Anisocytosis 1+; Eosinophils 5 % (0-10); Hypochromasia 1+; Lymphocytes 29 % (20-55); Microcytosis 1+; Ovalocytes Few; Segmented Neutrophils 56 % (50-85); Total Cells Counted 100
[2021-01-03 11:04] LABS: Platelet Estimate Adequate; Polychromasia Slight
[2021-01-03 11:13] LABS: Albumin 2.5 G/DL (3.4-5.0); Bilirubin,Total 0.5 MG/DL (0.2-1.0); Calcium 8.6 MG/DL (8.5-10.1); Osmolality,Calculated 274.5 MOS/KG (273-304); Potassium 4.3 MMOL/L (3.5-5.1)
[2021-01-03] MEDS: ISOSORBIDE MONONITRATE 30 MG TABLET PO SCH (14:28)
[2021-01-03] MEDS: MULTIVITAMIN (BEROCCA) TABLET PO SCH (14:28)
[2021-01-03] MEDS: CLOPIDOGREL 75 MG TABLET PO SCH (14:29)
[2021-01-03] MEDS: ASPIRIN EC 81 MG TABLET PO SCH (14:29)
[2021-01-03] MEDS: ASCORBIC ACID 500 MG TABLET PO SCH (14:29)
[2021-01-03] MEDS: METOPROLOL SUCCINATE XL 100 MG TABLET PO SCH (14:30)
[2021-01-03] MEDS ORDERED: DIGOXIN 0.5 MG/2 ML AMP IV ONE (16:00)
[2021-01-03] MEDS: PROMETHAZINE 25 MG/1 ML VIAL IM PRN (22:10)
[2021-01-04] MEDS: HYDROmorphone 2 MG/1 ML VIAL IV PRN (06:05)
[2021-01-04] MEDS: LEVOTHYROXINE 50 MCG TABLET PO SCH (06:05)
[2021-01-04 07:26] LABS: Basophils # 0.1 10*3/uL (0.0-0.2); Basophils % 1.2 % (0.0-0.8); Eosinophils # 0.2 10*3/uL (0.0-0.87); Eosinophils % 4.7 % (0.00-10.9); Hematocrit 29.2 VOL% (42.0-52.0); Immature Granulocytes % 0.2 %; Immature Granulocytes Absolute 0.01 #; Lymphocytes # 1.3 10*3/uL (1.4-4.0); Lymphocytes % 26.6 % (21.2-54.2); Mean Corpuscular HGB Conc 30.8 GM/DL (32-36); Mean Corpuscular Volume 86.4 FL (87-102); Mean Platelet Volume 9.6 FL (9.6-12.0); Monocytes % 18.7 % (1.7-12.7); Neutrophils % 48.6 % (38.7-73.9); Platelet Count 130 T/CUMM (130-400); Red Blood Count 3.38 MC/CUMM (3.8-5.5); Red Cell Distribution Width 18.8 % (9.3-17.3); White Blood Count 4.9 T/CUMM (4-12)
[2021-01-04 07:43] LABS: Calcium 8.9 MG/DL (8.5-10.1); Osmolality,Calculated 269.7 MOS/KG (273-304); Potassium 4.7 MMOL/L (3.5-5.1)
[2021-01-04 07:46] LABS: Eosinophils 10 % (0-10); Hypochromasia 1+; Lymphocytes 29 % (20-55); Microcytosis 1+; Ovalocytes Slight; Segmented Neutrophils 46 % (50-85); Total Cells Counted 100
[2021-01-04 07:47] LABS: Albumin 2.6 G/DL (3.4-5.0); Bilirubin,Total 0.6 MG/DL (0.2-1.0); Calcium 8.6 MG/DL (8.5-10.1); Osmolality,Calculated 267.8 MOS/KG (273-304); Potassium 4.7 MMOL/L (3.5-5.1); Total Protein 6.2 G/DL (6.4-8.2)
[2021-01-04] MEDS: METOPROLOL SUCCINATE XL 100 MG TABLET PO SCH (08:38)
[2021-01-04] MEDS: ASCORBIC ACID 500 MG TABLET PO SCH (08:38)
[2021-01-04] MEDS: CLOPIDOGREL 75 MG TABLET PO SCH (08:38)
[2021-01-04] MEDS: ASPIRIN EC 81 MG TABLET PO SCH (08:38)
[2021-01-04] MEDS: ISOSORBIDE MONONITRATE 30 MG TABLET PO SCH (08:38)
[2021-01-04] MEDS: MULTIVITAMIN (BEROCCA) TABLET PO SCH (08:38)
[2021-01-04] MEDS ORDERED: MAGNESIUM SULF RIDER 1 GM in PREMIX 1 EACH IV ONE (10:00)
[2021-01-04] MEDS: MORPHINE 4 MG/1 ML VIAL IV PRN (11:15)
[2021-01-04 16:44] VITALS: BP 115/72
== END 2021-01-04 18:55 | disposition home or self-care (01) ==
LOC: SUATTDRO 01:46 → INTOOBSV 01:46 → N.TELEN 01:46
PROVIDERS: ADMIT Internal Medicine; ATTEND Internal Medicine

== ENCOUNTER 2021-01-19 01:56 | Observation (INO) ==
[2021-01-19] MEDS ORDERED: hydrALAZINE 20 MG/1 ML VIAL IV PRN (05:13)
[2021-01-19] MEDS ORDERED: GLUCAGON 1 MG VIAL IM PRN (05:13)
[2021-01-19] MEDS ORDERED: DEXTROSE 50% 25 GM/50 ML VIAL IV PRN (05:13)
[2021-01-19] MEDS ORDERED: ACETAMINOPHEN 325 MG TABLET PO PRN (05:13)
[2021-01-19] MEDS ORDERED: NICOTINE 21 MG/24 HR PATCH TRANSDERM PRN (05:13)
[2021-01-19] MEDS ORDERED: ALUMINUM/MAGNES/SIMETH MAX STR 30 ML UDCUP PO PRN (05:13)
[2021-01-19] MEDS ORDERED: diphenhydrAMINE CAP 25 MG CAPSULE PO PRN (05:13)
[2021-01-19] MEDS ORDERED: MORPHINE 4 MG/1 ML VIAL IV ONE (05:46)
[2021-01-19] MEDS: MORPHINE 4 MG/1 ML VIAL IV PRN ×3 (06:03→20:26)
[2021-01-19] MEDS: ENOXAPARIN 80 MG/0.8 ML SYRINGE SUBCUT ONE ×2 (06:07→06:12)
[2021-01-19 06:12] LABS: Basophils # 0.1 10*3/uL (0.0-0.2); Eosinophils # 0.2 10*3/uL (0.0-0.87); Eosinophils % 4.6 % (0.00-10.9); Hematocrit 34.4 VOL% (42.0-52.0); Hemoglobin 10.4 GM/DL (14.0-18.0); Immature Granulocytes % 0.2 %; Immature Granulocytes Absolute 0.01 #; Lymphocytes # 1.5 10*3/uL (1.4-4.0); Lymphocytes % 31.9 % (21.2-54.2); Mean Corpuscular HGB Conc 30.2 GM/DL (32-36); Mean Corpuscular Volume 88.7 FL (87-102); Monocytes % 15.9 % (1.7-12.7); Neutrophils % 46.4 % (38.7-73.9); Platelet Count 149 T/CUMM (130-400); Red Blood Count 3.88 MC/CUMM (3.8-5.5); Red Cell Distribution Width 19.6 % (9.3-17.3); White Blood Count 4.8 T/CUMM (4-12)
[2021-01-19 06:34] LABS: Albumin 2.6 G/DL (3.4-5.0); Bilirubin,Total 0.5 MG/DL (0.2-1.0); Calcium 9.3 MG/DL (8.5-10.1); Osmolality,Calculated 282.7 MOS/KG (273-304); Potassium 4.7 MMOL/L (3.5-5.1); Total Protein 6.7 G/DL (6.4-8.2)
[2021-01-19 06:43] LABS: Band Neutrophils 1 % (0-10); Eosinophils 7 % (0-10); Hypochromasia 1+; Lymphocytes 34 % (20-55); Microcytosis 1+; Segmented Neutrophils 44 % (50-85); Total Cells Counted 100
[2021-01-19 06:44] LABS: Ovalocytes Slight; Polychromasia Slight; Tear Drop Cells Slight
[2021-01-19 06:45] LABS: Anisocytosis 1+; Platelet Estimate Adequate
[2021-01-19] MEDS: ALBUTEROL/IPRATROPIUM 3 ML NEB RESP TX SCH ×3 (07:34→19:42)
[2021-01-19] MEDS: MULTIVITAMIN (BEROCCA) TABLET PO SCH (08:37)
[2021-01-19] MEDS: METOPROLOL SUCCINATE XL 100 MG TABLET PO SCH (08:38)
[2021-01-19] MEDS: ASPIRIN EC 81 MG TABLET PO SCH (08:38)
[2021-01-19] MEDS: CLOPIDOGREL 75 MG TABLET PO SCH (08:38)
[2021-01-19] MEDS: ISOSORBIDE MONONITRATE 30 MG TABLET PO SCH (08:39)
[2021-01-19] MEDS: DILTIAZEM INJ 100 MG in SODIUM CHLORIDE 0.9% 100 ML IV SCH (11:51)
[2021-01-20] MEDS: ALBUTEROL/IPRATROPIUM 3 ML NEB RESP TX SCH ×2 (02:40→07:48)
[2021-01-20] MEDS: MORPHINE 4 MG/1 ML VIAL IV PRN ×2 (03:03→07:57)
[2021-01-20 05:41] LABS: Basophils % 1.3 % (0.0-0.8); Eosinophils % 4.2 % (0.00-10.9); Hematocrit 32.5 VOL% (42.0-52.0); Hemoglobin 9.6 GM/DL (14.0-18.0); Immature Granulocytes % 0.4 %; Lymphocytes % 25.8 % (21.2-54.2); Mean Corpuscular HGB Conc 29.5 GM/DL (32-36); Mean Platelet Volume 8.9 FL (9.6-12.0); Neutrophils % 47.3 % (38.7-73.9); Platelet Count 141 T/CUMM (130-400); Red Blood Count 3.65 MC/CUMM (3.8-5.5); Red Cell Distribution Width 19.5 % (9.3-17.3); White Blood Count 5.4 T/CUMM (4-12)
[2021-01-20 05:42] LABS: Basophils # 0.1 10*3/uL (0.0-0.2); Eosinophils # 0.2 10*3/uL (0.0-0.87); Immature Granulocytes Absolute 0.02 #; Lymphocytes # 1.4 10*3/uL (1.4-4.0)
[2021-01-20 06:02] LABS: Albumin 2.6 G/DL (3.4-5.0); Bilirubin,Total 0.9 MG/DL (0.2-1.0); Calcium 9.1 MG/DL (8.5-10.1); Osmolality,Calculated 279.7 MOS/KG (273-304); Potassium 4.5 MMOL/L (3.5-5.1); Total Protein 6.5 G/DL (6.4-8.2)
[2021-01-20 06:26] LABS: Eosinophils 5 % (0-10); Hypochromasia Slight; Lymphocytes 20 % (20-55); Platelet Estimate Normal; Segmented Neutrophils 57 % (50-85); Total Cells Counted 100
[2021-01-20] MEDS: ISOSORBIDE MONONITRATE 30 MG TABLET PO SCH (08:00)
[2021-01-20] MEDS: MULTIVITAMIN (BEROCCA) TABLET PO SCH (08:00)
[2021-01-20] MEDS: ASPIRIN EC 81 MG TABLET PO SCH (08:00)
[2021-01-20] MEDS: CLOPIDOGREL 75 MG TABLET PO SCH (08:01)
[2021-01-20] MEDS: METOPROLOL SUCCINATE XL 100 MG TABLET PO SCH (08:01)
[2021-01-20 11:32] VITALS: BP 112/71
[2021-01-20] MEDS ORDERED: ASCORBIC ACID 500 MG TABLET PO SCH (12:00)
[2021-01-20] MEDS: DILTIAZEM INJ 100 MG in SODIUM CHLORIDE 0.9% 100 ML IV SCH (12:36)
== END 2021-01-20 15:55 | disposition home or self-care (01) ==
LOC: N.TELEN → SUATTDRO 01:56
PROVIDERS: ADMIT Internal Medicine; ATTEND Internal Medicine

== ENCOUNTER 2021-01-23 00:36 | Observation (INO) ==
[2021-01-23] MEDS ORDERED: HYDROmorphone 2 MG/1 ML VIAL IV ONE (02:39)
[2021-01-23] MEDS ORDERED: guaiFENesin 200 MG/10 ML UDCUP PO PRN (02:40)
[2021-01-23] MEDS ORDERED: hydrALAZINE 20 MG/1 ML VIAL IV PRN (03:37)
[2021-01-23] MEDS ORDERED: GLUCAGON 1 MG VIAL IM PRN (03:37)
[2021-01-23] MEDS ORDERED: DOCUSATE SODIUM 100 MG CAPSULE PO PRN (03:37)
[2021-01-23] MEDS ORDERED: DEXTROSE 50% 25 GM/50 ML VIAL IV PRN (03:37)
[2021-01-23] MEDS ORDERED: ACETAMINOPHEN 325 MG TABLET PO PRN (03:37)
[2021-01-23] MEDS ORDERED: PROMETHAZINE 25 MG/1 ML VIAL IM PRN (03:43)
[2021-01-23] MEDS ORDERED: diphenhydrAMINE CAP 25 MG CAPSULE PO PRN (03:47)
[2021-01-23 06:02] LABS: INR 1.2; PT Patient Result 12.9 SECS (9.8-11.9)
[2021-01-23 06:08] LABS: Basophils # 0.1 10*3/uL (0.0-0.2); Basophils % 1.3 % (0.0-0.8); Eosinophils # 0.2 10*3/uL (0.0-0.87); Eosinophils % 3.6 % (0.00-10.9); Hematocrit 35.8 VOL% (42.0-52.0); Hemoglobin 10.7 GM/DL (14.0-18.0); Immature Granulocytes % 0.2 %; Immature Granulocytes Absolute 0.01 #; Lymphocytes # 1.3 10*3/uL (1.4-4.0); Lymphocytes % 24.6 % (21.2-54.2); Mean Corpuscular HGB Conc 29.9 GM/DL (32-36); Mean Corpuscular Volume 90.2 FL (87-102); Mean Platelet Volume 9.8 FL (9.6-12.0); Monocytes % 16.1 % (1.7-12.7); Neutrophils % 54.2 % (38.7-73.9); Platelet Count 145 T/CUMM (130-400); Red Blood Count 3.97 MC/CUMM (3.8-5.5); Red Cell Distribution Width 19.3 % (9.3-17.3); White Blood Count 5.3 T/CUMM (4-12)
[2021-01-23 06:18] LABS: Eosinophils 5 % (0-10); Lymphocytes 26 % (20-55); Segmented Neutrophils 58 % (50-85); Total Cells Counted 100
[2021-01-23 06:19] LABS: Hypochromasia 1+; Microcytosis 1+; Ovalocytes Slight; Platelet Estimate Adequate
[2021-01-23 06:22] LABS: Albumin 2.9 G/DL (3.4-5.0); Bilirubin,Total 0.7 MG/DL (0.2-1.0); Calcium 9.2 MG/DL (8.5-10.1); Osmolality,Calculated 275.8 MOS/KG (273-304); Potassium 4.4 MMOL/L (3.5-5.1)
[2021-01-23] MEDS ORDERED: ASPIRIN EC 81 MG TABLET PO SCH (09:00)
[2021-01-23] MEDS ORDERED: CLOPIDOGREL 75 MG TABLET PO SCH (09:00)
[2021-01-23] MEDS: MORPHINE 4 MG/1 ML VIAL IV PRN ×3 (09:17→19:55)
[2021-01-23] MEDS: ASCORBIC ACID 500 MG TABLET PO SCH ×2 (09:32→21:04)
[2021-01-23] MEDS: METOPROLOL SUCCINATE XL 100 MG TABLET PO SCH (09:33)
[2021-01-23] MEDS: ISOSORBIDE MONONITRATE 30 MG TABLET PO SCH (09:33)
[2021-01-23] MEDS: MULTIVITAMIN (BEROCCA) TABLET PO SCH (09:33)
[2021-01-24] MEDS: MORPHINE 4 MG/1 ML VIAL IV PRN ×5 (01:21→23:11)
[2021-01-24] MEDS: MULTIVITAMIN (BEROCCA) TABLET PO SCH (08:48)
[2021-01-24] MEDS: ISOSORBIDE MONONITRATE 30 MG TABLET PO SCH (08:49)
[2021-01-24] MEDS: ASCORBIC ACID 500 MG TABLET PO SCH ×2 (08:49→20:33)
[2021-01-24] MEDS: METOPROLOL SUCCINATE XL 100 MG TABLET PO SCH (08:49)
[2021-01-24 11:57] LABS: Basophils # 0.1 10*3/uL (0.0-0.2); Basophils % 1.1 % (0.0-0.8); Eosinophils # 0.3 10*3/uL (0.0-0.87); Eosinophils % 5.1 % (0.00-10.9); Hematocrit 29.9 VOL% (42.0-52.0); Hemoglobin 9.1 GM/DL (14.0-18.0); Immature Granulocytes % 0.2 %; Immature Granulocytes Absolute 0.01 #; Lymphocytes # 0.8 10*3/uL (1.4-4.0); Lymphocytes % 14.3 % (21.2-54.2); Mean Corpuscular HGB Conc 30.4 GM/DL (32-36); Mean Corpuscular Volume 87.2 FL (87-102); Mean Platelet Volume 9.4 FL (9.6-12.0); Monocytes % 12.1 % (1.7-12.7); Neutrophils % 67.2 % (38.7-73.9); Platelet Count 111 T/CUMM (130-400); Red Blood Count 3.43 MC/CUMM (3.8-5.5); Red Cell Distribution Width 18.9 % (9.3-17.3); White Blood Count 5.5 T/CUMM (4-12)
[2021-01-24 12:15] LABS: Albumin 2.5 G/DL (3.4-5.0); Calcium 8.7 MG/DL (8.5-10.1); Potassium 4.2 MMOL/L (3.5-5.1); Total Protein 6.5 G/DL (6.4-8.2)
[2021-01-24 12:45] LABS: Eosinophils 5 % (0-10); Lymphocytes 17 % (20-55); Metamyelocytes 1 %; Segmented Neutrophils 66 % (50-85); Total Cells Counted 100
[2021-01-24 12:48] LABS: Hypochromasia 1+; Microcytosis 1+; Ovalocytes Slight; Polychromasia Slight
[2021-01-24 12:50] LABS: Platelet Estimate Adequate; Tear Drop Cells Slight
[2021-01-25] MEDS: MORPHINE 4 MG/1 ML VIAL IV PRN ×3 (05:38→15:45)
[2021-01-25 07:04] LABS: Basophils # 0.1 10*3/uL (0.0-0.2); Basophils % 1.2 % (0.0-0.8); Eosinophils # 0.3 10*3/uL (0.0-0.87); Eosinophils % 5.6 % (0.00-10.9); Hematocrit 33.4 VOL% (42.0-52.0); Immature Granulocytes % 0.2 %; Immature Granulocytes Absolute 0.01 #; Lymphocytes # 1.2 10*3/uL (1.4-4.0); Lymphocytes % 20.3 % (21.2-54.2); Mean Corpuscular HGB Conc 29.9 GM/DL (32-36); Mean Corpuscular Volume 88.4 FL (87-102); Mean Platelet Volume 10.4 FL (9.6-12.0); Monocytes % 27.3 % (1.7-12.7); Neutrophils % 45.4 % (38.7-73.9); Platelet Count 126 T/CUMM (130-400); Red Blood Count 3.78 MC/CUMM (3.8-5.5); Red Cell Distribution Width 18.8 % (9.3-17.3); White Blood Count 5.7 T/CUMM (4-12)
[2021-01-25 07:20] LABS: Albumin 2.7 G/DL (3.4-5.0); Bilirubin,Total 1.2 MG/DL (0.2-1.0); Calcium 9.1 MG/DL (8.5-10.1); Osmolality,Calculated 273.2 MOS/KG (273-304); Potassium 4.2 MMOL/L (3.5-5.1); Total Protein 6.8 G/DL (6.4-8.2)
[2021-01-25 07:25] LABS: Eosinophils 7 % (0-10); Hypochromasia 1+; Lymphocytes 22 % (20-55); Microcytosis 1+; Ovalocytes Slight; Platelet Estimate Normal; Segmented Neutrophils 57 % (50-85); Total Cells Counted 100
[2021-01-25] MEDS: ISOSORBIDE MONONITRATE 30 MG TABLET PO SCH (10:00)
[2021-01-25] MEDS: ASCORBIC ACID 500 MG TABLET PO SCH ×2 (10:00→20:52)
[2021-01-25] MEDS: MULTIVITAMIN (BEROCCA) TABLET PO SCH (10:00)
[2021-01-25] MEDS: METOPROLOL SUCCINATE XL 100 MG TABLET PO SCH (10:00)
[2021-01-25 21:57] VITALS: BP 135/98
[2021-01-25 22:41] LABS: RBC,Peritoneal Fluid > 100000 T/CUMM
[2021-01-26 04:04] LABS: Neutrophils,Peritoneal Fluid 24 %
== END 2021-01-25 22:35 | disposition home or self-care (01) ==
LOC: INTOOBSV 01:40 → N.TELEN 01:40 → SUATTDRO 01:40
PROVIDERS: ADMIT Internal Medicine; ATTEND Internal Medicine

== ENCOUNTER 2021-02-25 12:12 | Inpatient (IN) ==
[2021-02-25 15:11] LABS: Basophils # 0.1 10*3/uL (0.0-0.2); Basophils % 1.3 % (0.0-0.8); Eosinophils # 0.3 10*3/uL (0.0-0.87); Eosinophils % 5.7 % (0.00-10.9); Hematocrit 40.8 VOL% (42.0-52.0); Hemoglobin 12.4 GM/DL (14.0-18.0); Lymphocytes # 1.8 10*3/uL (1.4-4.0); Lymphocytes % 34.5 % (21.2-54.2); Mean Corpuscular HGB Conc 30.4 GM/DL (32-36); Mean Corpuscular Volume 85.9 FL (87-102); Mean Platelet Volume 9.7 FL (9.6-12.0); Monocytes % 20.5 % (1.7-12.7); Platelet Count 100 T/CUMM (130-400); Red Blood Count 4.75 MC/CUMM (3.8-5.5); Red Cell Distribution Width 18.6 % (9.3-17.3); White Blood Count 5.2 T/CUMM (4-12)
[2021-02-25 15:29] LABS: Albumin 3.2 G/DL (3.4-5.0); Bilirubin,Total 0.8 MG/DL (0.2-1.0); Calcium 9.1 MG/DL (8.5-10.1); Potassium 4.7 MMOL/L (3.5-5.1); Total Protein 7.9 G/DL (6.4-8.2)
[2021-02-25 15:46] LABS: Acanthocytes 1+; Anisocytosis 2+; Eosinophils 6 % (0-10); Lymphocytes 36 % (20-55); Microcytosis Slight; Poikilocytosis 2+; Segmented Neutrophils 47 % (50-85); Total Cells Counted 100
[2021-02-25 15:47] LABS: Burr Cells 1+; Ovalocytes 1+; Tear Drop Cells 1+
[2021-02-25 15:48] LABS: Platelet Estimate Adequate; Polychromasia 1+; Reactive Lymphocytes 1+; Schistocytes Few
[2021-02-25] MEDS ORDERED: MORPHINE 4 MG/1 ML VIAL IV STA (15:54)
[2021-02-25] MEDS ORDERED: ONDANSETRON 4 MG/2 ML VIAL IV STA (15:54)
[2021-02-25 16:30] LABS: INR 1.2; Partial Thromboplastin Time 31.1 SECS (23.9-33.8)
[2021-02-25] MEDS ORDERED: DEXTROSE 50% 25 GM/50 ML VIAL IV PRN (16:42)
[2021-02-25] MEDS ORDERED: ONDANSETRON 4 MG/2 ML VIAL IV PRN (16:42)
[2021-02-25] MEDS ORDERED: hydrALAZINE 20 MG/1 ML VIAL IV PRN (16:42)
[2021-02-25] MEDS ORDERED: GLUCAGON 1 MG VIAL IM PRN (16:42)
[2021-02-25] MEDS: MORPHINE 4 MG/1 ML VIAL IV PRN ×2 (18:51→23:40)
[2021-02-25 23:25] LABS: Hemoglobin 12.4 GM/DL (14.0-18.0)
[2021-02-26 05:04] LABS: Basophils # 0.1 10*3/uL (0.0-0.2); Basophils % 1.1 % (0.0-0.8); Eosinophils # 0.3 10*3/uL (0.0-0.87); Eosinophils % 6.1 % (0.00-10.9); Hematocrit 36.5 VOL% (42.0-52.0); Hemoglobin 11.1 GM/DL (14.0-18.0); Immature Granulocytes % 0.4 %; Immature Granulocytes Absolute 0.02 #; Lymphocytes # 1.7 10*3/uL (1.4-4.0); Lymphocytes % 31.8 % (21.2-54.2); Mean Corpuscular HGB Conc 30.4 GM/DL (32-36); Mean Corpuscular Volume 85.5 FL (87-102); Mean Platelet Volume 11.6 FL (9.6-12.0); Monocytes % 17.6 % (1.7-12.7); Red Blood Count 4.27 MC/CUMM (3.8-5.5); Red Cell Distribution Width 18.6 % (9.3-17.3); White Blood Count 5.3 T/CUMM (4-12)
[2021-02-26 05:10] LABS: Platelet Count 91 T/CUMM (130-400)
[2021-02-26 05:14] LABS: Calcium 8.7 MG/DL (8.5-10.1); Potassium 4.8 MMOL/L (3.5-5.1)
[2021-02-26 05:26] LABS: Eosinophils 10 % (0-10); Hypochromasia Slight; Lymphocytes 30 % (20-55); Microcytosis Slight; Ovalocytes Slight; Platelet Estimate Decreased; Segmented Neutrophils 49 % (50-85); Total Cells Counted 100
[2021-02-26] MEDS: METOPROLOL SUCCINATE XL 100 MG TABLET PO SCH (10:12)
[2021-02-26] MEDS: ISOSORBIDE MONONITRATE 30 MG TABLET PO SCH (10:12)
[2021-02-26] MEDS: MULTIVITAMIN (BEROCCA) TABLET PO SCH (10:12)
[2021-02-26] MEDS: PANTOPRAZOLE 40 MG VIAL IV SCH (10:12)
[2021-02-26] MEDS: MORPHINE 4 MG/1 ML VIAL IV PRN ×3 (10:27→23:22)
[2021-02-27] MEDS: MORPHINE 4 MG/1 ML VIAL IV PRN ×4 (04:36→21:03)
[2021-02-27 07:54] LABS: Hematocrit 34.2 VOL% (42.0-52.0); Hemoglobin 10.9 GM/DL (14.0-18.0)
[2021-02-27] MEDS: MULTIVITAMIN (BEROCCA) TABLET PO SCH (10:13)
[2021-02-27] MEDS: METOPROLOL SUCCINATE XL 100 MG TABLET PO SCH ×2 (10:13→21:03)
[2021-02-27] MEDS: PANTOPRAZOLE 40 MG VIAL IV SCH (10:14)
[2021-02-27] MEDS: ISOSORBIDE MONONITRATE 30 MG TABLET PO SCH (10:14)
[2021-02-28] MEDS: MORPHINE 4 MG/1 ML VIAL IV PRN ×3 (01:54→12:43)
[2021-02-28 08:21] LABS: Basophils # 0.1 10*3/uL (0.0-0.2); Basophils % 1.3 % (0.0-0.8); Eosinophils # 0.3 10*3/uL (0.0-0.87); Hematocrit 34.6 VOL% (42.0-52.0); Hemoglobin 10.6 GM/DL (14.0-18.0); Immature Granulocytes % 0.3 %; Immature Granulocytes Absolute 0.01 #; Lymphocytes # 1.2 10*3/uL (1.4-4.0); Mean Corpuscular HGB Conc 30.6 GM/DL (32-36); Mean Platelet Volume 9.6 FL (9.6-12.0); Monocytes % 16.7 % (1.7-12.7); Neutrophils % 42.7 % (38.7-73.9); Platelet Count 86 T/CUMM (130-400); Red Blood Count 4.07 MC/CUMM (3.8-5.5); Red Cell Distribution Width 18.4 % (9.3-17.3); White Blood Count 3.8 T/CUMM (4-12)
[2021-02-28 08:34] LABS: Calcium 8.6 MG/DL (8.5-10.1); Osmolality,Calculated 281.1 MOS/KG (273-304); Potassium 4.8 MMOL/L (3.5-5.1)
[2021-02-28 08:41] LABS: Eosinophils 7 % (0-10); Lymphocytes 35 % (20-55); Metamyelocytes 1 %; Segmented Neutrophils 47 % (50-85); Total Cells Counted 100
[2021-02-28 08:42] LABS: Hypochromasia 1+; Microcytosis 1+
[2021-02-28 08:43] LABS: Ovalocytes Few; Platelet Estimate Decreased; Polychromasia Slight
[2021-02-28] MEDS ORDERED: ASPIRIN EC 81 MG TABLET PO SCH (09:00)
[2021-02-28] MEDS ORDERED: KETOROLAC 30 MG/1 ML VIAL IV ONE (10:45)
[2021-02-28] MEDS ORDERED: NITROGLYCERIN SL 0.4 MG TABLET SL ONE (10:45)
[2021-02-28] MEDS ORDERED: RANOLAZINE 500 MG TABLET PO SCH (11:00)
[2021-02-28] MEDS: ISOSORBIDE MONONITRATE 30 MG TABLET PO SCH (12:31)
[2021-02-28] MEDS: METOPROLOL SUCCINATE XL 100 MG TABLET PO SCH (12:42)
[2021-02-28] MEDS: MULTIVITAMIN (BEROCCA) TABLET PO SCH (12:42)
[2021-02-28] MEDS: PANTOPRAZOLE 40 MG VIAL IV SCH (12:43)
[2021-02-28 16:07] VITALS: BP 114/78
[2021-03-01] MEDS ORDERED: PANTOPRAZOLE 40 MG TABLET PO SCH (09:00)
[2021-03-01] MEDS ORDERED: ISOSORBIDE MONONITRATE 60 MG TABLET PO SCH (09:00)
== END 2021-02-28 19:35 | disposition home or self-care (01) | DRG 432 ==
LOC: N.3E 12:12 → N.ED 12:12 → N.3E 18:16
PROVIDERS: ADMIT Hospitalist; ATTEND Hospitalist

== ENCOUNTER 2021-03-28 00:18 | Inpatient (IN) ==
[2021-03-28] MEDS ORDERED: ASPIRIN 325 MG TABLET PO STA (01:11)
[2021-03-28] MEDS ORDERED: PROMETHAZINE 25 MG/1 ML VIAL IM STA ×2 (01:11→01:14)
[2021-03-28] MEDS ORDERED: MORPHINE 4 MG/1 ML VIAL IV ONE (01:13)
[2021-03-28] MEDS ORDERED: DILTIAZEM 50 MG/10 ML VIAL IV STA (01:13)
[2021-03-28] MEDS ORDERED: ASPIRIN CHEW 81 MG TABLET PO STA (01:13)
[2021-03-28] MEDS ORDERED: MORPHINE 4 MG/1 ML VIAL IV STA (01:15)
[2021-03-28 01:25] LABS: Basophils # 0.1 10*3/uL (0.0-0.2); Basophils % 1.2 % (0.0-0.8); Eosinophils # 0.3 10*3/uL (0.0-0.87); Eosinophils % 4.6 % (0.00-10.9); Hematocrit 39.7 VOL% (42.0-52.0); Immature Granulocytes % 0.2 %; Immature Granulocytes Absolute 0.01 #; Lymphocytes # 1.7 10*3/uL (1.4-4.0); Lymphocytes % 30.6 % (21.2-54.2); Mean Corpuscular HGB Conc 30.2 GM/DL (32-36); Mean Corpuscular Volume 85.4 FL (87-102); Mean Platelet Volume 9.9 FL (9.6-12.0); Monocytes % 14.3 % (1.7-12.7); Neutrophils % 49.1 % (38.7-73.9); Platelet Count 118 T/CUMM (130-400); Red Blood Count 4.65 MC/CUMM (3.8-5.5); Red Cell Distribution Width 18.1 % (9.3-17.3); White Blood Count 5.7 T/CUMM (4-12)
[2021-03-28 01:33] LABS: INR 1.2; PT Patient Result 13.3 SECS (10.5-12.0); Partial Thromboplastin Time 32.7 SECS (23.9-33.8)
[2021-03-28 02:17] LABS: Albumin 3.6 G/DL (3.4-5.0); Bilirubin,Total 0.9 MG/DL (0.2-1.0); Calcium 8.8 MG/DL (8.5-10.1); Osmolality,Calculated 278.2 MOS/KG (273-304); Potassium 4.4 MMOL/L (3.5-5.1); Total Protein 8.1 G/DL (6.4-8.2)
[2021-03-28] MEDS ORDERED: ALBUTEROL/IPRATROPIUM 3 ML NEB RESP TX PRN (02:30)
[2021-03-28] MEDS ORDERED: DOCUSATE SODIUM 100 MG CAPSULE PO PRN (02:30)
[2021-03-28] MEDS ORDERED: hydrALAZINE 20 MG/1 ML VIAL IV PRN (02:30)
[2021-03-28] MEDS ORDERED: ONDANSETRON 4 MG/2 ML VIAL IV PRN (02:30)
[2021-03-28] MEDS ORDERED: SIMETHICONE CHEW 125 MG TABLET PO PRN (02:30)
[2021-03-28] MEDS ORDERED: GLUCAGON 1 MG VIAL IM PRN (02:30)
[2021-03-28] MEDS ORDERED: DEXTROSE 50% 25 GM/50 ML VIAL IV PRN (02:30)
[2021-03-28 02:35] LABS: High Sensitive Troponin I* 2192.2 ng/L (0-78)
[2021-03-28] MEDS: PANTOPRAZOLE 40 MG TABLET PO SCH (08:33)
[2021-03-28] MEDS: METOPROLOL SUCCINATE XL 100 MG TABLET PO SCH ×2 (09:26→21:00)
[2021-03-28] MEDS: ASPIRIN EC 81 MG TABLET PO SCH (09:26)
[2021-03-28] MEDS: ISOSORBIDE MONONITRATE 60 MG TABLET PO SCH (09:26)
[2021-03-28 10:16] LABS: Basophils # 0.1 10*3/uL (0.0-0.2); Basophils % 1.6 % (0.0-0.8); Eosinophils # 0.3 10*3/uL (0.0-0.87); Eosinophils % 5.3 % (0.00-10.9); Hematocrit 34.3 VOL% (42.0-52.0); Hemoglobin 10.6 GM/DL (14.0-18.0); Immature Granulocytes % 0.2 %; Immature Granulocytes Absolute 0.01 #; Lymphocytes # 1.6 10*3/uL (1.4-4.0); Lymphocytes % 32.1 % (21.2-54.2); Mean Corpuscular HGB Conc 30.9 GM/DL (32-36); Mean Corpuscular Volume 83.7 FL (87-102); Monocytes % 15.4 % (1.7-12.7); Neutrophils % 45.4 % (38.7-73.9); Platelet Count 106 T/CUMM (130-400); Red Cell Distribution Width 17.9 % (9.3-17.3); White Blood Count 4.9 T/CUMM (4-12)
[2021-03-28 10:34] LABS: Eosinophils 7 % (0-10); Hypochromasia 1+; Lymphocytes 39 % (20-55); Microcytosis 1+; Platelet Estimate Decreased; Segmented Neutrophils 43 % (50-85); Total Cells Counted 100
[2021-03-28 10:36] LABS: Albumin 3.1 G/DL (3.4-5.0); Calcium 8.8 MG/DL (8.5-10.1); Osmolality,Calculated 281.1 MOS/KG (273-304); Potassium 3.9 MMOL/L (3.5-5.1); Total Protein 7.3 G/DL (6.4-8.2)
[2021-03-28] MEDS ORDERED: MORPHINE 4 MG/1 ML VIAL IV PRN (13:09)
[2021-03-28] MEDS: oxyCODONE IR 5 MG TABLET PO PRN (23:15)
[2021-03-29] MEDS: ISOSORBIDE MONONITRATE 60 MG TABLET PO SCH (09:20)
[2021-03-29] MEDS: PANTOPRAZOLE 40 MG TABLET PO SCH (09:20)
[2021-03-29] MEDS: ASPIRIN EC 81 MG TABLET PO SCH (09:20)
[2021-03-29] MEDS: METOPROLOL SUCCINATE XL 100 MG TABLET PO SCH ×2 (09:20→20:45)
[2021-03-29] MEDS: oxyCODONE IR 5 MG TABLET PO PRN ×2 (09:21→15:09)
[2021-03-29 16:11] LABS: RBC,Peritoneal Fluid > 100000 T/CUMM
[2021-03-29 16:14] LABS: Glucose,Peritoneal Fluid 98 MG/DL; LDH,Peritoneal Fluid 106 U/L; Total Protein,Peritoneal Fluid 4.3 G/DL
[2021-03-30] MEDS: ISOSORBIDE MONONITRATE 60 MG TABLET PO SCH (08:22)
[2021-03-30] MEDS: METOPROLOL SUCCINATE XL 100 MG TABLET PO SCH (08:22)
[2021-03-30] MEDS: PANTOPRAZOLE 40 MG TABLET PO SCH (08:22)
[2021-03-30] MEDS: ASPIRIN EC 81 MG TABLET PO SCH (08:22)
[2021-03-30 13:33] VITALS: BP 115/79
== END 2021-03-30 17:34 | disposition home or self-care (01) | DRG 432 ==
LOC: N.ED 00:18 → N.EDINP 02:30 → N.TELEN 03:27
PROVIDERS: ADMIT Internal Medicine Geriatric Medicine; ATTEND Internal Medicine Geriatric Medicine

== ENCOUNTER 2021-07-19 23:28 | Inpatient (IN) ==
[2021-07-20] MEDS ORDERED: diphenhydrAMINE 50 MG/1 ML VIAL IV STA (00:32)
[2021-07-20 01:48] LABS: Basophils # 0.1 10*3/uL (0.0-0.2); Basophils % 1.5 % (0.0-0.8); Eosinophils # 0.6 10*3/uL (0.0-0.87); Eosinophils % 9.7 % (0.00-10.9); Hemoglobin 12.5 GM/DL (14.0-18.0); Immature Granulocytes % 0.3 %; Immature Granulocytes Absolute 0.02 #; Lymphocytes # 1.8 10*3/uL (1.4-4.0); Lymphocytes % 30.2 % (21.2-54.2); Mean Corpuscular HGB Conc 30.5 GM/DL (32-36); Mean Corpuscular Volume 85.2 FL (87-102); Mean Platelet Volume 11.2 FL (9.6-12.0); Monocytes % 15.4 % (1.7-12.7); Neutrophils % 42.9 % (38.7-73.9); Red Blood Count 4.81 MC/CUMM (3.8-5.5); Red Cell Distribution Width 18.6 % (9.3-17.3)
[2021-07-20 01:49] LABS: Platelet Count 92 T/CUMM (130-400)
[2021-07-20 02:33] LABS: Albumin 3.4 G/DL (3.4-5.0); Bilirubin,Total 1.2 MG/DL (0.20-1.00); Osmolality,Calculated 278.2 MOS/KG (273-304); Potassium 4.1 MMOL/L (3.5-5.1); Total Protein 8.3 G/DL (6.4-8.2)
[2021-07-20] MEDS ORDERED: HYDROmorphone 2 MG/1 ML VIAL IV ONE (02:47)
[2021-07-20] MEDS ORDERED: PROMETHAZINE 25 MG/1 ML VIAL IM STA (02:47)
[2021-07-20 02:57] LABS: Reactive Lymphocytes 1+
[2021-07-20 02:58] LABS: Hypochromasia Slight; Ovalocytes 2+; Platelet Estimate Decreased
[2021-07-20] MEDS ORDERED: hydrALAZINE 20 MG/1 ML VIAL IV PRN (05:02)
[2021-07-20] MEDS ORDERED: GLUCAGON 1 MG VIAL IM PRN (05:02)
[2021-07-20] MEDS ORDERED: DEXTROSE 50% 25 GM/50 ML VIAL IV PRN (05:02)
[2021-07-20] MEDS: HYDROmorphone 2 MG/1 ML VIAL IV PRN ×3 (06:42→21:29)
[2021-07-20 07:00] LABS: INR 1.5; PT Patient Result 16.5 SECS (10.5-12.0)
[2021-07-20] MEDS ORDERED: MEROPENEM 500 MG VIAL ONE (07:49)
[2021-07-20] MEDS ORDERED: SODIUM CHLORIDE 0.9% 100 ML IV ONE (07:49)
[2021-07-20] MEDS: MEROPENEM 500 MG in SODIUM CHLORIDE 0.9% 100 ML IV SCH (07:50)
[2021-07-20] MEDS ORDERED: INFLUENZA VIRUS VACCINE 0.5 ML SYRINGE IM ONE (08:49)
[2021-07-21] MEDS: HYDROmorphone 2 MG/1 ML VIAL IV PRN ×3 (04:01→20:37)
[2021-07-21] MEDS: MEROPENEM 500 MG in SODIUM CHLORIDE 0.9% 100 ML IV SCH (08:57)
[2021-07-21 10:02] LABS: Basophils # 0.1 10*3/uL (0.0-0.2); Basophils % 1.9 % (0.0-0.8); Eosinophils # 0.5 10*3/uL (0.0-0.87); Eosinophils % 10.2 % (0.00-10.9); Hematocrit 35.8 VOL% (42.0-52.0); Hemoglobin 11.6 GM/DL (14.0-18.0); Immature Granulocytes % 0.4 %; Immature Granulocytes Absolute 0.02 #; Lymphocytes # 1.3 10*3/uL (1.4-4.0); Lymphocytes % 27.4 % (21.2-54.2); Mean Corpuscular HGB Conc 32.4 GM/DL (32-36); Mean Corpuscular Volume 81.2 FL (87-102); Mean Platelet Volume 10.7 FL (9.6-12.0); Monocytes % 15.3 % (1.7-12.7); Neutrophils % 44.8 % (38.7-73.9); Red Blood Count 4.41 MC/CUMM (3.8-5.5); Red Cell Distribution Width 18.1 % (9.3-17.3); White Blood Count 4.6 T/CUMM (4-12)
[2021-07-21 10:03] LABS: Platelet Count 95 T/CUMM (130-400)
[2021-07-21 10:32] LABS: Bilirubin,Total 1.3 MG/DL (0.20-1.00); Osmolality,Calculated 274.2 MOS/KG (273-304); Potassium 3.7 MMOL/L (3.5-5.1); Total Protein 7.2 G/DL (6.4-8.2)
[2021-07-21 11:08] LABS: Hepatitis B Surface Ag Quant < 0.10 Index; Hepatitis B Surface Ag Result Non-Reactive (NonReactive); Hepatitis C Virus Ab Quant 0.04 Index; Hepatitis C Virus Ab Result Non-Reactive (NonReactive)
[2021-07-22] MEDS: MEROPENEM 500 MG in SODIUM CHLORIDE 0.9% 100 ML IV SCH (08:04)
[2021-07-22] MEDS: HYDROmorphone 2 MG/1 ML VIAL IV PRN ×2 (08:05→11:50)
[2021-07-22] MEDS: diphenhydrAMINE CAP 25 MG CAPSULE PO PRN ×2 (14:53→21:11)
[2021-07-22] MEDS ORDERED: ONDANSETRON 4 MG/2 ML VIAL IV PRN (16:17)
[2021-07-22] MEDS: PANTOPRAZOLE 40 MG VIAL IV SCH (21:14)
[2021-07-22] MEDS: METOPROLOL SUCCINATE XL 100 MG TABLET PO SCH (23:31)
[2021-07-23] MEDS: CALCIUM ACETATE 667 MG CAPSULE PO SCH ×3 (08:18→17:59)
[2021-07-23] MEDS: PANTOPRAZOLE 40 MG VIAL IV SCH ×2 (08:19→20:42)
[2021-07-23 11:05] LABS: Basophils # 0.1 10*3/uL (0.0-0.2); Basophils % 1.7 % (0.0-0.8); Eosinophils # 0.4 10*3/uL (0.0-0.87); Eosinophils % 9.6 % (0.00-10.9); Hematocrit 37.1 VOL% (42.0-52.0); Hemoglobin 11.5 GM/DL (14.0-18.0); Lymphocytes # 1.1 10*3/uL (1.4-4.0); Lymphocytes % 26.9 % (21.2-54.2); Mean Corpuscular Volume 82.1 FL (87-102); Mean Platelet Volume 10.1 FL (9.6-12.0); Monocytes % 10.3 % (1.7-12.7); Neutrophils % 51.5 % (38.7-73.9); Platelet Count 90 T/CUMM (130-400); Red Blood Count 4.52 MC/CUMM (3.8-5.5); Red Cell Distribution Width 18.4 % (9.3-17.3); White Blood Count 4.2 T/CUMM (4-12)
[2021-07-23 11:30] LABS: Potassium 4.1 MMOL/L (3.5-5.1)
[2021-07-23 11:47] LABS: Burr Cells Few; Tear Drop Cells Few
[2021-07-23] MEDS: METOPROLOL SUCCINATE XL 100 MG TABLET PO SCH ×2 (15:15→20:43)
[2021-07-23] MEDS: ISOSORBIDE MONONITRATE 60 MG TABLET PO SCH (15:16)
[2021-07-23] MEDS: MULTIVITAMIN (BEROCCA) TABLET PO SCH (15:16)
[2021-07-23] MEDS: MEROPENEM 500 MG in SODIUM CHLORIDE 0.9% 100 ML IV SCH (17:59)
[2021-07-24] MEDS: METOPROLOL SUCCINATE XL 100 MG TABLET PO SCH (08:55)
[2021-07-24] MEDS: ISOSORBIDE MONONITRATE 60 MG TABLET PO SCH (08:56)
[2021-07-24] MEDS: CALCIUM ACETATE 667 MG CAPSULE PO SCH ×2 (08:59→12:34)
[2021-07-24] MEDS: PANTOPRAZOLE 40 MG VIAL IV SCH (08:59)
[2021-07-24] MEDS: MULTIVITAMIN (BEROCCA) TABLET PO SCH (08:59)
[2021-07-24 11:22] VITALS: BP 127/79
== END 2021-07-24 13:25 | disposition home or self-care (01) | DRG 432 ==
LOC: EDUNIT# → EDBD → N.ED 23:28 → N.EDINP 23:28 → N.3E 07-20 08:37 → SUATTDRO 07-22 15:03
PROVIDERS: ADMIT Internal Medicine; ATTEND Internal Medicine

== ENCOUNTER 2022-03-14 20:01 | Inpatient (IN) ==
[2022-03-14 20:25] LABS: Basophils # 0.1 10*3/uL (0.0-0.2); Basophils % 1.5 % (0.0-0.8); Eosinophils # 0.3 10*3/uL (0.0-0.87); Eosinophils % 7.3 % (0.00-10.9); Hematocrit 37.4 VOL% (42.0-52.0); Hemoglobin 11.2 GM/DL (14.0-18.0); Immature Granulocytes % 0.2 %; Immature Granulocytes Absolute 0.01 #; Lymphocytes # 1.2 10*3/uL (1.4-4.0); Mean Corpuscular HGB Conc 29.9 GM/DL (32-36); Mean Corpuscular Volume 84.4 FL (87-102); Mean Platelet Volume 9.1 FL (9.6-12.0); Monocytes # 0.7 10*3/uL (0.11-0.8); Monocytes % 16.8 % (1.7-12.7); Neutrophils % 46.2 % (38.7-73.9); Platelet Count 104 T/CUMM (130-400); Red Blood Count 4.43 MC/CUMM (3.8-5.5); Red Cell Distribution Width 19.9 % (9.3-17.3); White Blood Count 4.1 T/CUMM (4-12)
[2022-03-14 20:36] LABS: INR 1.2; PT Patient Result 12.7 SECS (10.5-12.0); Partial Thromboplastin Time 31.7 SECS (23.8-32.1)
[2022-03-14 20:49] LABS: Albumin 2.7 G/DL (3.4-5.0); Bilirubin,Total 0.8 MG/DL (0.20-1.00); Osmolality,Calculated 276.7 MOS/KG (273-304); Potassium 3.7 MMOL/L (3.5-5.1); Total Protein 7.1 G/DL (6.4-8.2)
[2022-03-14 20:56] LABS: Eosinophils 8 % (0-10); Lymphocytes 25 % (20-55); Platelet Estimate Adequate; Total Cells Counted 100
[2022-03-14 20:57] LABS: Anisocytosis 1+; Hypochromia 1+; Macrocytosis 1+; Microcytosis 1+
[2022-03-14] MEDS ORDERED: MORPHINE 2 MG/1 ML SYRINGE IV STA (21:46)
[2022-03-14] MEDS ORDERED: PROMETHAZINE INJ 12.5 MG in SODIUM CHLORIDE 0.9% 50 ML IV STA (21:48)
[2022-03-14] MEDS ORDERED: PROMETHAZINE INJ 12.5 MG in SODIUM CHLORIDE 0.9% 100 ML IV STA (21:49)
[2022-03-14] MEDS ORDERED: DILTIAZEM 25 MG/5 ML VIAL IV STA (21:54)
[2022-03-14] MEDS ORDERED: DILTIAZEM INJ 100 MG in SODIUM CHLORIDE 0.9% 100 ML IV SCH (22:00)
[2022-03-14] MEDS ORDERED: GLUCAGON 1 MG VIAL IM PRN (22:12)
[2022-03-14] MEDS ORDERED: DEXTROSE 10% 250 ML BAG IV PRN (22:12)
[2022-03-14] MEDS ORDERED: NICOTINE 21 MG/24 HR PATCH TRANSDERM PRN (22:12)
[2022-03-14] MEDS ORDERED: ACETAMINOPHEN 325 MG TABLET PO PRN (22:12)
[2022-03-14] MEDS ORDERED: guaiFENesin/DM ER 600-30 MG TABLET PO PRN (22:12)
[2022-03-14] MEDS ORDERED: diphenhydrAMINE CAP 25 MG CAPSULE PO PRN (22:12)
[2022-03-14] MEDS ORDERED: ZALEPLON 5 MG CAPSULE PO PRN (22:12)
[2022-03-14] MEDS ORDERED: hydrALAZINE 20 MG/1 ML VIAL IV PRN (22:12)
[2022-03-14] MEDS ORDERED: MORPHINE 2 MG/1 ML SYRINGE IV PRN (22:12)
[2022-03-14] MEDS: HEPARIN DRIP 25,000 UNITS/500 ML PREMIX IV SCH (22:36)
[2022-03-15] MEDS: LEVOFLOXACIN INJ 750 MG/150 ML PREMIX IV SCH (00:25)
[2022-03-15] MEDS: ALBUTEROL/IPRATROPIUM 3 ML NEB RESP TX SCH ×4 (00:49→20:14)
[2022-03-15] MEDS: metroNIDAZOLE INJ 500 MG/100 ML PREMIX IV SCH ×3 (01:25→15:44)
[2022-03-15 04:11] LABS: Basophils # 0.1 10*3/uL (0.0-0.2); Basophils % 1.3 % (0.0-0.8); Eosinophils # 0.3 10*3/uL (0.0-0.87); Eosinophils % 5.9 % (0.00-10.9); Hematocrit 36.4 VOL% (42.0-52.0); Hemoglobin 10.9 GM/DL (14.0-18.0); Immature Granulocytes % 0.2 %; Immature Granulocytes Absolute 0.01 #; Lymphocytes # 1.3 10*3/uL (1.4-4.0); Lymphocytes % 29.4 % (21.2-54.2); Mean Corpuscular HGB Conc 29.9 GM/DL (32-36); Mean Corpuscular Volume 84.3 FL (87-102); Mean Platelet Volume 9.2 FL (9.6-12.0); Monocytes # 0.7 10*3/uL (0.11-0.8); Monocytes % 15.1 % (1.7-12.7); Neutrophils % 48.1 % (38.7-73.9); Platelet Count 107 T/CUMM (130-400); Red Blood Count 4.32 MC/CUMM (3.8-5.5); Red Cell Distribution Width 19.7 % (9.3-17.3); White Blood Count 4.6 T/CUMM (4-12)
[2022-03-15 04:40] LABS: Eosinophils 6 % (0-10); Hypochromia Slight; Lymphocytes 27 % (20-55); Total Cells Counted 100
[2022-03-15 04:41] LABS: Calcium 8.7 MG/DL (8.5-10.1); Macrocytosis Slight; Osmolality,Calculated 277.7 MOS/KG (273-304); Potassium 3.4 MMOL/L (3.5-5.1)
[2022-03-15] MEDS ORDERED: POTASSIUM CHLORIDE 20 MEQ TABLET PO ONE (08:34)
[2022-03-15] MEDS: ASPIRIN EC 81 MG TABLET PO SCH (10:54)
[2022-03-15] MEDS: DILTIAZEM CD 120 MG CAPSULE PO SCH (10:55)
[2022-03-15] MEDS: MORPHINE 2 MG/1 ML SYRINGE IV PRN ×2 (10:57→18:48)
[2022-03-15] MEDS: METOPROLOL SUCCINATE XL 100 MG TABLET PO SCH ×2 (11:12→20:54)
[2022-03-15] MEDS ORDERED: ALBUMIN 25% 12.5 GM/50 ML VIAL IV ONE ×2 (13:54→14:00)
[2022-03-15 15:03] LABS: Neutrophils,Peritoneal Fluid 5 %
[2022-03-15 15:04] LABS: RBC,Peritoneal Fluid 6925 T/CUMM
[2022-03-15] MEDS: HEPARIN DRIP 25,000 UNITS/500 ML PREMIX IV SCH (22:30)
[2022-03-16] MEDS: ALBUTEROL/IPRATROPIUM 3 ML NEB RESP TX SCH ×5 (00:36→23:25)
[2022-03-16] MEDS: metroNIDAZOLE INJ 500 MG/100 ML PREMIX IV SCH ×3 (00:55→17:26)
[2022-03-16] MEDS: MORPHINE 2 MG/1 ML SYRINGE IV PRN ×4 (01:03→21:15)
[2022-03-16 09:05] LABS: Basophils # 0.1 10*3/uL (0.0-0.2); Basophils % 2.1 % (0.0-0.8); Eosinophils # 0.4 10*3/uL (0.0-0.87); Eosinophils % 10.1 % (0.00-10.9); Hematocrit 36.4 VOL% (42.0-52.0); Hemoglobin 11.3 GM/DL (14.0-18.0); Immature Granulocytes % 0.3 %; Immature Granulocytes Absolute 0.01 #; Lymphocytes % 25.9 % (21.2-54.2); Mean Corpuscular Volume 81.6 FL (87-102); Mean Platelet Volume 9.3 FL (9.6-12.0); Monocytes # 0.5 10*3/uL (0.11-0.8); Monocytes % 13.6 % (1.7-12.7); Red Blood Count 4.46 MC/CUMM (3.8-5.5); Red Cell Distribution Width 19.5 % (9.3-17.3); White Blood Count 3.8 T/CUMM (4-12)
[2022-03-16 09:14] LABS: Platelet Count 87 T/CUMM (130-400)
[2022-03-16 09:20] LABS: Calcium 8.1 MG/DL (8.5-10.1); Osmolality,Calculated 276.1 MOS/KG (273-304); Potassium 4.1 MMOL/L (3.5-5.1)
[2022-03-16 09:24] LABS: Albumin 2.4 G/DL (3.4-5.0); Bilirubin,Total 0.7 MG/DL (0.20-1.00); Calcium 8.6 MG/DL (8.5-10.1); Potassium 3.5 MMOL/L (3.5-5.1); Total Protein 6.2 G/DL (6.4-8.2)
[2022-03-16 09:47] LABS: Platelet Estimate Decreased
[2022-03-16 10:00] LABS: Hepatitis B Core IgM Quant 0.07 Index; Hepatitis B Surface Ag Quant < 0.10 Index; Hepatitis B Surface Ag Result Non-Reactive (NonReactive); Hepatitis C Virus Ab Quant 0.04 Index; Hepatitis C Virus Ab Result Non-Reactive (NonReactive)
[2022-03-16] MEDS: DILTIAZEM CD 120 MG CAPSULE PO SCH (13:17)
[2022-03-16] MEDS: ASPIRIN EC 81 MG TABLET PO SCH (13:17)
[2022-03-16] MEDS: METOPROLOL SUCCINATE XL 100 MG TABLET PO SCH ×2 (13:17→21:16)
[2022-03-16] MEDS: LEVOFLOXACIN INJ 750 MG/150 ML PREMIX IV SCH (21:16)
[2022-03-17] MEDS: metroNIDAZOLE INJ 500 MG/100 ML PREMIX IV SCH ×4 (01:29→23:36)
[2022-03-17 05:19] LABS: Basophils # 0.1 10*3/uL (0.0-0.2); Basophils % 1.7 % (0.0-0.8); Eosinophils # 0.4 10*3/uL (0.0-0.87); Eosinophils % 9.5 % (0.00-10.9); Hematocrit 37.3 VOL% (42.0-52.0); Hemoglobin 11.2 GM/DL (14.0-18.0); Immature Granulocytes % 0.2 %; Immature Granulocytes Absolute 0.01 #; Lymphocytes # 1.1 10*3/uL (1.4-4.0); Mean Platelet Volume 10.3 FL (9.6-12.0); Monocytes # 0.8 10*3/uL (0.11-0.8); Monocytes % 18.6 % (1.7-12.7); Red Blood Count 4.44 MC/CUMM (3.8-5.5); Red Cell Distribution Width 19.7 % (9.3-17.3); White Blood Count 4.2 T/CUMM (4-12)
[2022-03-17 05:24] LABS: Platelet Count 68 T/CUMM (130-400)
[2022-03-17 05:36] LABS: Albumin 2.3 G/DL (3.4-5.0); Bilirubin,Total 0.5 MG/DL (0.20-1.00); Calcium 8.2 MG/DL (8.5-10.1); Potassium 3.8 MMOL/L (3.5-5.1); Total Protein 6.2 G/DL (6.4-8.2)
[2022-03-17 05:46] LABS: Anisocytosis 1+; Eosinophils 8 % (0-10); Lymphocytes 28 % (20-55); Total Cells Counted 100
[2022-03-17 05:47] LABS: Hypochromia Slight; Microcytosis 1+
[2022-03-17 05:48] LABS: Ovalocytes Slight; Platelet Estimate Decreased
[2022-03-17] MEDS: ALBUTEROL/IPRATROPIUM 3 ML NEB RESP TX SCH ×4 (07:25→20:09)
[2022-03-17] MEDS: DILTIAZEM CD 120 MG CAPSULE PO SCH (09:03)
[2022-03-17] MEDS: ASPIRIN EC 81 MG TABLET PO SCH (09:03)
[2022-03-17] MEDS: METOPROLOL SUCCINATE XL 100 MG TABLET PO SCH ×2 (09:08→21:53)
[2022-03-17] MEDS: MORPHINE 2 MG/1 ML SYRINGE IV PRN ×3 (09:10→23:36)
[2022-03-18] MEDS: ALBUTEROL/IPRATROPIUM 3 ML NEB RESP TX SCH ×4 (00:26→19:08)
[2022-03-18] MEDS: MORPHINE 2 MG/1 ML SYRINGE IV PRN ×2 (04:52→21:26)
[2022-03-18 07:54] LABS: Basophils # 0.1 10*3/uL (0.0-0.2); Basophils % 1.2 % (0.0-0.8); Eosinophils # 0.5 10*3/uL (0.0-0.87); Eosinophils % 10.4 % (0.00-10.9); Hematocrit 34.4 VOL% (42.0-52.0); Hemoglobin 10.6 GM/DL (14.0-18.0); Immature Granulocytes % 0.2 %; Immature Granulocytes Absolute 0.01 #; Lymphocytes # 1.2 10*3/uL (1.4-4.0); Lymphocytes % 28.1 % (21.2-54.2); Mean Corpuscular HGB Conc 30.8 GM/DL (32-36); Mean Corpuscular Volume 82.3 FL (87-102); Mean Platelet Volume 10.3 FL (9.6-12.0); Monocytes # 0.6 10*3/uL (0.11-0.8); Monocytes % 14.5 % (1.7-12.7); Neutrophils % 45.6 % (38.7-73.9); Platelet Count 76 T/CUMM (130-400); Red Blood Count 4.18 MC/CUMM (3.8-5.5); Red Cell Distribution Width 19.7 % (9.3-17.3); White Blood Count 4.3 T/CUMM (4-12)
[2022-03-18 08:13] LABS: Albumin 2.1 G/DL (3.4-5.0); Bilirubin,Total 0.7 MG/DL (0.20-1.00); Calcium 8.2 MG/DL (8.5-10.1); Osmolality,Calculated 278.8 MOS/KG (273-304); Total Protein 5.9 G/DL (6.4-8.2)
[2022-03-18 08:14] LABS: Atypical Lymphocytes Few; Eosinophils 15 % (0-10); Hypochromia 1+; Lymphocytes 24 % (20-55); Microcytosis 1+; Total Cells Counted 100
[2022-03-18 08:15] LABS: Ovalocytes Slight; Platelet Estimate Decreased; Polychromasia Slight; Tear Drop Cells Slight
[2022-03-18] MEDS: metroNIDAZOLE INJ 500 MG/100 ML PREMIX IV SCH ×2 (10:20→17:56)
[2022-03-18] MEDS: SODIUM CHLORIDE 0.9% 1,000 ML IV SCH ×2 (11:30→14:16)
[2022-03-18] MEDS ORDERED: MIDAZOLAM 2 MG/2 ML VIAL ONE (12:24)
[2022-03-18] MEDS ORDERED: LIDOCAINE 2% 5 ML VIAL ONE (12:24)
[2022-03-18] MEDS ORDERED: ETOMIDATE 20 MG/10 ML VIAL IV ONE (12:24)
[2022-03-18] MEDS ORDERED: PHENYLEPHRINE 1 MG/10 ML SYRINGE IV ONE ×2 (12:37→13:11)
[2022-03-18] MEDS: METOPROLOL SUCCINATE XL 100 MG TABLET PO SCH ×2 (14:23→21:25)
[2022-03-18] MEDS: ASPIRIN EC 81 MG TABLET PO SCH (14:23)
[2022-03-18] MEDS: DILTIAZEM CD 120 MG CAPSULE PO SCH (14:23)
[2022-03-18] MEDS: LEVOFLOXACIN INJ 750 MG/150 ML PREMIX IV SCH (21:25)
[2022-03-18] MEDS: ATORVASTATIN 40 MG TABLET PO SCH (21:25)
[2022-03-19] MEDS: ALBUTEROL/IPRATROPIUM 3 ML NEB RESP TX SCH ×4 (00:31→19:10)
[2022-03-19] MEDS: metroNIDAZOLE INJ 500 MG/100 ML PREMIX IV SCH ×2 (02:01→09:52)
[2022-03-19] MEDS: MORPHINE 2 MG/1 ML SYRINGE IV PRN (02:15)
[2022-03-19 05:13] LABS: Basophils # 0.1 10*3/uL (0.0-0.2); Basophils % 1.3 % (0.0-0.8); Eosinophils # 0.4 10*3/uL (0.0-0.87); Eosinophils % 8.9 % (0.00-10.9); Hematocrit 34.8 VOL% (42.0-52.0); Hemoglobin 10.5 GM/DL (14.0-18.0); Immature Granulocytes % 0.3 %; Immature Granulocytes Absolute 0.01 #; Lymphocytes # 0.9 10*3/uL (1.4-4.0); Lymphocytes % 23.4 % (21.2-54.2); Mean Corpuscular HGB Conc 30.2 GM/DL (32-36); Mean Corpuscular Volume 83.9 FL (87-102); Mean Platelet Volume 10.4 FL (9.6-12.0); Monocytes # 0.7 10*3/uL (0.11-0.8); Monocytes % 17.8 % (1.7-12.7); Neutrophils % 48.3 % (38.7-73.9); Platelet Count 61 T/CUMM (130-400); Red Blood Count 4.15 MC/CUMM (3.8-5.5); Red Cell Distribution Width 19.5 % (9.3-17.3); White Blood Count 3.9 T/CUMM (4-12)
[2022-03-19 05:30] LABS: Albumin 2.2 G/DL (3.4-5.0); Bilirubin,Total 0.6 MG/DL (0.20-1.00); Calcium 8.3 MG/DL (8.5-10.1); Osmolality,Calculated 277.7 MOS/KG (273-304); Potassium 3.8 MMOL/L (3.5-5.1); Total Protein 6.1 G/DL (6.4-8.2)
[2022-03-19 05:52] LABS: Eosinophils 16 % (0-10); Hypochromia 1+; Lymphocytes 21 % (20-55); Microcytosis 1+; Ovalocytes Slight; Target Cells Slight; Total Cells Counted 100
[2022-03-19 05:53] LABS: Anisocytosis 1+; Platelet Estimate Decreased
[2022-03-19] MEDS: DILTIAZEM CD 120 MG CAPSULE PO SCH (09:43)
[2022-03-19] MEDS: ASPIRIN EC 81 MG TABLET PO SCH (09:43)
[2022-03-19] MEDS: METOPROLOL SUCCINATE XL 100 MG TABLET PO SCH ×2 (09:43→21:20)
[2022-03-19] MEDS ORDERED: SIMETHICONE CHEW 125 MG TABLET PO PRN (09:53)
[2022-03-19] MEDS: SUCRALFATE 1 GM TABLET PO SCH ×3 (11:47→21:20)
[2022-03-19] MEDS: HEPARIN DRIP 25,000 UNITS/500 ML PREMIX IV SCH ×2 (13:29→13:30)
[2022-03-19] MEDS: ATORVASTATIN 40 MG TABLET PO SCH (21:20)
[2022-03-20] MEDS: ALBUTEROL/IPRATROPIUM 3 ML NEB RESP TX SCH ×2 (01:10→07:50)
[2022-03-20] MEDS: ASPIRIN EC 81 MG TABLET PO SCH (08:20)
[2022-03-20] MEDS: SUCRALFATE 1 GM TABLET PO SCH ×2 (08:20→11:27)
[2022-03-20] MEDS: METOPROLOL SUCCINATE XL 100 MG TABLET PO SCH (08:21)
[2022-03-20] MEDS ORDERED: ISOSORBIDE MONONITRATE 60 MG TABLET PO SCH (09:00)
[2022-03-20] MEDS ORDERED: DILTIAZEM CD 180 MG CAPSULE PO SCH (09:00)
[2022-03-20 10:50] LABS: Basophils # 0.1 10*3/uL (0.0-0.2); Basophils % 1.4 % (0.0-0.8); Eosinophils # 0.3 10*3/uL (0.0-0.87); Eosinophils % 7.3 % (0.00-10.9); Hematocrit 37.3 VOL% (42.0-52.0); Hemoglobin 11.5 GM/DL (14.0-18.0); Immature Granulocytes % 0.3 %; Immature Granulocytes Absolute 0.01 #; Lymphocytes # 0.8 10*3/uL (1.4-4.0); Lymphocytes % 22.2 % (21.2-54.2); Mean Corpuscular HGB Conc 30.8 GM/DL (32-36); Mean Corpuscular Volume 81.6 FL (87-102); Mean Platelet Volume 10.9 FL (9.6-12.0); Monocytes # 0.6 10*3/uL (0.11-0.8); Monocytes % 15.4 % (1.7-12.7); Neutrophils % 53.4 % (38.7-73.9); Platelet Count 58 T/CUMM (130-400); Red Blood Count 4.57 MC/CUMM (3.8-5.5); Red Cell Distribution Width 19.9 % (9.3-17.3); White Blood Count 3.6 T/CUMM (4-12)
[2022-03-20 11:13] LABS: Albumin 2.4 G/DL (3.4-5.0); Bilirubin,Total 0.7 MG/DL (0.20-1.00); Calcium 8.6 MG/DL (8.5-10.1); Osmolality,Calculated 277.7 MOS/KG (273-304); Potassium 3.4 MMOL/L (3.5-5.1); Total Protein 6.7 G/DL (6.4-8.2)
[2022-03-20 14:41] VITALS: BP 105/71
== END 2022-03-20 12:55 | disposition home or self-care (01) | DRG 432 ==
LOC: EDUNIT# → EDBD → N.ED 20:01 → N.EDINP 22:12 → SUATTDRO 22:12 → N.TELEN 03-15 08:18
PROVIDERS: ADMIT Family Medicine; ATTEND Internal Medicine

== ENCOUNTER 2022-04-12 20:46 | Inpatient (IN) ==
[2022-04-12] MEDS ORDERED: MORPHINE 2 MG/1 ML SYRINGE IV STA (21:03)
[2022-04-12] MEDS ORDERED: PROMETHAZINE 25 MG/1 ML VIAL IM STA (21:04)
[2022-04-12 21:46] LABS: Basophils # 0.1 10*3/uL (0.0-0.2); Basophils % 1.3 % (0.0-0.8); Eosinophils # 0.3 10*3/uL (0.0-0.87); Eosinophils % 7.2 % (0.00-10.9); Hematocrit 40.9 VOL% (42.0-52.0); Hemoglobin 12.4 GM/DL (14.0-18.0); Immature Granulocytes % 0.2 %; Immature Granulocytes Absolute 0.01 #; Lymphocytes # 1.2 10*3/uL (1.4-4.0); Lymphocytes % 26.5 % (21.2-54.2); Mean Corpuscular HGB Conc 30.3 GM/DL (32-36); Mean Corpuscular Volume 83.6 FL (87-102); Mean Platelet Volume 9.7 FL (9.6-12.0); Monocytes # 0.7 10*3/uL (0.11-0.8); Monocytes % 15.8 % (1.7-12.7); Platelet Count 97 T/CUMM (130-400); Red Blood Count 4.89 MC/CUMM (3.8-5.5); Red Cell Distribution Width 18.9 % (9.3-17.3); White Blood Count 4.6 T/CUMM (4-12)
[2022-04-12 22:02] LABS: Albumin 3.1 G/DL (3.4-5.0); Bilirubin,Total 0.8 MG/DL (0.20-1.00); Calcium 9.4 MG/DL (8.5-10.1); Osmolality,Calculated 272.8 MOS/KG (273-304); Potassium 3.7 MMOL/L (3.5-5.1); Total Protein 8.5 G/DL (6.4-8.2)
[2022-04-12 22:07] LABS: Eosinophils 10 % (0-10); Lymphocytes 25 % (20-55); Platelet Estimate Decreased; Total Cells Counted 100
[2022-04-13] MEDS ORDERED: hydrALAZINE 20 MG/1 ML VIAL IV PRN (00:01)
[2022-04-13] MEDS ORDERED: GLUCAGON 1 MG VIAL IM PRN (00:01)
[2022-04-13] MEDS ORDERED: ALBUTEROL/IPRATROPIUM 3 ML NEB RESP TX PRN (00:01)
[2022-04-13] MEDS ORDERED: NICOTINE 21 MG/24 HR PATCH TRANSDERM PRN (00:01)
[2022-04-13] MEDS ORDERED: DEXTROSE 10% 250 ML BAG IV PRN (00:01)
[2022-04-13] MEDS ORDERED: ACETAMINOPHEN 325 MG TABLET PO PRN (00:01)
[2022-04-13] MEDS ORDERED: diphenhydrAMINE CAP 25 MG CAPSULE PO PRN (00:01)
[2022-04-13] MEDS ORDERED: CIPROFLOXACIN INJ 400 MG/200 ML PREMIX IV ONE (01:24)
[2022-04-13] MEDS ORDERED: metroNIDAZOLE INJ 500 MG/100 ML PREMIX IV ONE (03:00)
[2022-04-13] MEDS: MORPHINE 2 MG/1 ML SYRINGE IV PRN ×4 (03:46→17:02)
[2022-04-13] MEDS: ISOSORBIDE MONONITRATE 60 MG TABLET PO SCH (08:01)
[2022-04-13] MEDS: DOCUSATE SODIUM 100 MG CAPSULE PO PRN (08:01)
[2022-04-13] MEDS: guaiFENesin/DM ER 600-30 MG TABLET PO PRN (08:01)
[2022-04-13] MEDS: HEPARIN 5,000 UNIT/1 ML VIAL SUBCUT SCH ×2 (08:06→21:41)
[2022-04-13] MEDS: METOPROLOL SUCCINATE XL 100 MG TABLET PO SCH ×2 (08:06→21:28)
[2022-04-13 08:23] LABS: Basophils # 0.1 10*3/uL (0.0-0.2); Basophils % 1.3 % (0.0-0.8); Eosinophils # 0.3 10*3/uL (0.0-0.87); Eosinophils % 8.8 % (0.00-10.9); Immature Granulocytes % 0.3 %; Immature Granulocytes Absolute 0.01 #; Lymphocytes # 1.3 10*3/uL (1.4-4.0); Lymphocytes % 33.9 % (21.2-54.2); Mean Corpuscular HGB Conc 31.2 GM/DL (32-36); Mean Corpuscular Volume 81.9 FL (87-102); Monocytes # 0.7 10*3/uL (0.11-0.8); Monocytes % 17.3 % (1.7-12.7); Neutrophils % 38.4 % (38.7-73.9); Platelet Count 89 T/CUMM (130-400); Red Blood Count 4.03 MC/CUMM (3.8-5.5); Red Cell Distribution Width 18.6 % (9.3-17.3); White Blood Count 3.8 T/CUMM (4-12)
[2022-04-13 08:25] LABS: Hemoglobin 10.3 GM/DL (14.0-18.0)
[2022-04-13 08:42] LABS: Calcium 8.9 MG/DL (8.5-10.1); Osmolality,Calculated 273.8 MOS/KG (273-304); Potassium 3.4 MMOL/L (3.5-5.1)
[2022-04-13 09:10] LABS: Eosinophils 8 % (0-10); Lymphocytes 34 % (20-55); Total Cells Counted 100
[2022-04-13 09:23] LABS: Hypochromia Slight; Microcytosis Slight
[2022-04-13 09:25] LABS: Anisocytosis Slight; Platelet Estimate Decreased
[2022-04-13 09:26] LABS: Polychromasia Slight
[2022-04-13] MEDS: metroNIDAZOLE INJ 500 MG/100 ML PREMIX IV SCH (17:02)
[2022-04-13] MEDS: CIPROFLOXACIN INJ 400 MG/200 ML PREMIX IV SCH (21:29)
[2022-04-13] MEDS ORDERED: PROMETHAZINE INJ 12.5 MG in SODIUM CHLORIDE 0.9% 50 ML IV PRN (21:33)
[2022-04-14] MEDS: metroNIDAZOLE INJ 500 MG/100 ML PREMIX IV SCH ×2 (04:17→17:13)
[2022-04-14] MEDS: MORPHINE 2 MG/1 ML SYRINGE IV PRN ×4 (04:38→21:17)
[2022-04-14 06:04] LABS: Basophils # 0.1 10*3/uL (0.0-0.2); Basophils % 1.4 % (0.0-0.8); Eosinophils # 0.4 10*3/uL (0.0-0.87); Eosinophils % 10.4 % (0.00-10.9); Hematocrit 33.4 VOL% (42.0-52.0); Hemoglobin 10.3 GM/DL (14.0-18.0); Lymphocytes # 1.1 10*3/uL (1.4-4.0); Lymphocytes % 30.3 % (21.2-54.2); Mean Corpuscular HGB Conc 30.8 GM/DL (32-36); Mean Corpuscular Volume 82.9 FL (87-102); Mean Platelet Volume 10.2 FL (9.6-12.0); Monocytes # 0.6 10*3/uL (0.11-0.8); Monocytes % 16.8 % (1.7-12.7); Neutrophils % 41.1 % (38.7-73.9); Red Blood Count 4.03 MC/CUMM (3.8-5.5); Red Cell Distribution Width 18.6 % (9.3-17.3); White Blood Count 3.5 T/CUMM (4-12)
[2022-04-14 06:15] LABS: Platelet Count 83 T/CUMM (130-400)
[2022-04-14 06:23] LABS: Albumin 2.6 G/DL (3.4-5.0); Calcium 8.6 MG/DL (8.5-10.1); Osmolality,Calculated 273.1 MOS/KG (273-304); Phosphorous 5.1 MG/DL (2.5-4.9); Potassium 3.7 MMOL/L (3.5-5.1)
[2022-04-14 07:21] LABS: Eosinophils 9 % (0-10); Hypochromia 1+; Lymphocytes 33 % (20-55); Microcytosis 1+; Total Cells Counted 100
[2022-04-14 07:22] LABS: Platelet Estimate Decreased
[2022-04-14] MEDS: METOPROLOL SUCCINATE XL 100 MG TABLET PO SCH ×2 (08:46→21:06)
[2022-04-14] MEDS: ISOSORBIDE MONONITRATE 60 MG TABLET PO SCH (08:46)
[2022-04-14] MEDS: HEPARIN 5,000 UNIT/1 ML VIAL SUBCUT SCH ×2 (08:46→21:03)
[2022-04-14] MEDS: CIPROFLOXACIN INJ 400 MG/200 ML PREMIX IV SCH (14:37)
[2022-04-15] MEDS: MORPHINE 2 MG/1 ML SYRINGE IV PRN ×3 (02:55→23:50)
[2022-04-15] MEDS: metroNIDAZOLE INJ 500 MG/100 ML PREMIX IV SCH (05:30)
[2022-04-15] MEDS: HEPARIN 5,000 UNIT/1 ML VIAL SUBCUT SCH ×2 (08:24→21:30)
[2022-04-15] MEDS: METOPROLOL SUCCINATE XL 100 MG TABLET PO SCH ×2 (09:13→21:27)
[2022-04-15] MEDS: ISOSORBIDE MONONITRATE 60 MG TABLET PO SCH (09:13)
[2022-04-15] MEDS ORDERED: HYDROmorphone 1 MG/1 ML SYRINGE IV ONE (15:00)
[2022-04-15] MEDS: metroNIDAZOLE 500 MG TABLET PO SCH ×2 (18:39→21:29)
[2022-04-15] MEDS: CIPROFLOXACIN 500 MG TABLET PO SCH (21:29)
[2022-04-15] MEDS: guaiFENesin/DM ER 600-30 MG TABLET PO PRN (21:29)
[2022-04-15] MEDS: ZALEPLON 5 MG CAPSULE PO PRN (23:18)
[2022-04-16 04:47] LABS: Basophils # 0.1 10*3/uL (0.0-0.2); Basophils % 1.5 % (0.0-0.8); Eosinophils # 0.4 10*3/uL (0.0-0.87); Eosinophils % 8.9 % (0.00-10.9); Hematocrit 31.3 VOL% (42.0-52.0); Hemoglobin 9.4 GM/DL (14.0-18.0); Immature Granulocytes % 0.3 %; Immature Granulocytes Absolute 0.01 #; Lymphocytes # 0.9 10*3/uL (1.4-4.0); Mean Corpuscular Volume 84.1 FL (87-102); Mean Platelet Volume 10.4 FL (9.6-12.0); Monocytes # 0.7 10*3/uL (0.11-0.8); Monocytes % 16.6 % (1.7-12.7); Neutrophils % 49.7 % (38.7-73.9); Platelet Count 65 T/CUMM (130-400); Red Blood Count 3.72 MC/CUMM (3.8-5.5); Red Cell Distribution Width 18.4 % (9.3-17.3); White Blood Count 3.9 T/CUMM (4-12)
[2022-04-16 04:53] LABS: INR 1.3; PT Patient Result 14.2 SECS (10.5-12.0); Partial Thromboplastin Time 34.8 SECS (23.7-32.9)
[2022-04-16 05:00] LABS: Calcium 8.8 MG/DL (8.5-10.1); Osmolality,Calculated 275.8 MOS/KG (273-304); Potassium 3.7 MMOL/L (3.5-5.1)
[2022-04-16 05:14] LABS: Atypical Lymphocytes Few; Eosinophils 13 % (0-10); Hypochromia 1+; Lymphocytes 24 % (20-55); Microcytosis 1+; Total Cells Counted 100
[2022-04-16 05:15] LABS: Ovalocytes Slight; Platelet Estimate Decreased
[2022-04-16] MEDS: MORPHINE 2 MG/1 ML SYRINGE IV PRN ×4 (05:26→20:54)
[2022-04-16] MEDS ORDERED: ALBUMIN 25% 12.5 GM/50 ML VIAL IV ONE (09:26)
[2022-04-16] MEDS: metroNIDAZOLE 500 MG TABLET PO SCH ×3 (10:55→20:53)
[2022-04-16] MEDS: ISOSORBIDE MONONITRATE 60 MG TABLET PO SCH (10:57)
[2022-04-16] MEDS: METOPROLOL SUCCINATE XL 100 MG TABLET PO SCH ×2 (10:57→20:53)
[2022-04-16] MEDS: HEPARIN 5,000 UNIT/1 ML VIAL SUBCUT SCH ×2 (10:57→20:53)
[2022-04-16 10:58] LABS: Neutrophils,Peritoneal Fluid 4 %; RBC,Peritoneal Fluid 4530 T/CUMM
[2022-04-16 11:04] LABS: Total Protein,Peritoneal Fluid 3.8 G/DL
[2022-04-16] MEDS: CIPROFLOXACIN 500 MG TABLET PO SCH (20:53)
[2022-04-16] MEDS: ZALEPLON 5 MG CAPSULE PO PRN (20:53)
[2022-04-17] MEDS: METOPROLOL SUCCINATE XL 100 MG TABLET PO SCH ×2 (08:00→21:39)
[2022-04-17] MEDS: ISOSORBIDE MONONITRATE 60 MG TABLET PO SCH (08:00)
[2022-04-17] MEDS: HEPARIN 5,000 UNIT/1 ML VIAL SUBCUT SCH ×2 (09:17→21:39)
[2022-04-17] MEDS: metroNIDAZOLE 500 MG TABLET PO SCH ×3 (12:21→21:42)
[2022-04-17] MEDS ORDERED: ALBUMIN 25% 50 GM/200 ML VIAL IV ONE (14:00)
[2022-04-17] MEDS: MORPHINE 2 MG/1 ML SYRINGE IV PRN (18:36)
[2022-04-17] MEDS: guaiFENesin/DM ER 600-30 MG TABLET PO PRN (21:41)
[2022-04-17] MEDS: ZALEPLON 5 MG CAPSULE PO PRN (21:41)
[2022-04-17] MEDS: CIPROFLOXACIN 500 MG TABLET PO SCH (21:41)
[2022-04-17] MEDS: DOCUSATE SODIUM 100 MG CAPSULE PO PRN (21:41)
[2022-04-18] MEDS: MORPHINE 2 MG/1 ML SYRINGE IV PRN (04:50)
[2022-04-18 06:04] LABS: Basophils % 1.1 % (0.0-0.8); Eosinophils # 0.2 10*3/uL (0.0-0.87); Eosinophils % 6.5 % (0.00-10.9); Hematocrit 33.9 VOL% (42.0-52.0); Hemoglobin 10.4 GM/DL (14.0-18.0); Immature Granulocytes % 0.5 %; Immature Granulocytes Absolute 0.02 #; Lymphocytes # 0.9 10*3/uL (1.4-4.0); Lymphocytes % 24.2 % (21.2-54.2); Mean Corpuscular HGB Conc 30.7 GM/DL (32-36); Mean Corpuscular Volume 84.1 FL (87-102); Mean Platelet Volume 9.9 FL (9.6-12.0); Neutrophils % 39.7 % (38.7-73.9); Platelet Count 48 T/CUMM (130-400); Red Blood Count 4.03 MC/CUMM (3.8-5.5); Red Cell Distribution Width 18.5 % (9.3-17.3); White Blood Count 3.7 T/CUMM (4-12)
[2022-04-18 06:20] LABS: Calcium 8.8 MG/DL (8.5-10.1)
[2022-04-18 06:33] LABS: Eosinophils 15 % (0-10); Hypochromia Slight; Lymphocytes 33 % (20-55); Microcytosis Slight; Platelet Estimate Decreased; Total Cells Counted 100
[2022-04-18] MEDS: HEPARIN 5,000 UNIT/1 ML VIAL SUBCUT SCH ×2 (08:51→22:03)
[2022-04-18] MEDS: metroNIDAZOLE 500 MG TABLET PO SCH ×3 (10:25→22:02)
[2022-04-18] MEDS: ISOSORBIDE MONONITRATE 60 MG TABLET PO SCH (10:25)
[2022-04-18] MEDS: METOPROLOL SUCCINATE XL 100 MG TABLET PO SCH ×2 (10:25→22:03)
[2022-04-18] MEDS: ZALEPLON 5 MG CAPSULE PO PRN (22:02)
[2022-04-18] MEDS: DOCUSATE SODIUM 100 MG CAPSULE PO PRN (22:02)
[2022-04-18] MEDS: CIPROFLOXACIN 500 MG TABLET PO SCH (22:02)
[2022-04-19] MEDS: MORPHINE 2 MG/1 ML SYRINGE IV PRN ×2 (03:44→13:12)
[2022-04-19 09:26] LABS: Basophils # 0.1 10*3/uL (0.0-0.2); Basophils % 1.4 % (0.0-0.8); Eosinophils # 0.5 10*3/uL (0.0-0.87); Eosinophils % 10.6 % (0.00-10.9); Hematocrit 35.3 VOL% (42.0-52.0); Immature Granulocytes % 0.2 %; Immature Granulocytes Absolute 0.01 #; Lymphocytes # 1.3 10*3/uL (1.4-4.0); Mean Corpuscular HGB Conc 31.2 GM/DL (32-36); Mean Corpuscular Volume 81.9 FL (87-102); Mean Platelet Volume 11.5 FL (9.6-12.0); Monocytes # 0.8 10*3/uL (0.11-0.8); Monocytes % 17.8 % (1.7-12.7); Platelet Count 60 T/CUMM (130-400); Red Blood Count 4.31 MC/CUMM (3.8-5.5); Red Cell Distribution Width 18.4 % (9.3-17.3); White Blood Count 4.3 T/CUMM (4-12)
[2022-04-19 09:43] LABS: Calcium 8.5 MG/DL (8.5-10.1); Potassium 4.4 MMOL/L (3.5-5.1)
[2022-04-19 09:47] LABS: Eosinophils 11 % (0-10); Hypochromia Slight; Lymphocytes 31 % (20-55); Microcytosis Slight; Platelet Estimate Decreased; Total Cells Counted 100
[2022-04-19 10:31] LABS: Hepatitis B Core IgM Quant 0.07 Index; Hepatitis B Surface Ag Quant < 0.10 Index; Hepatitis B Surface Ag Result Non-Reactive (NonReactive); Hepatitis C Virus Ab Quant 0.05 Index; Hepatitis C Virus Ab Result Non-Reactive (NonReactive)
[2022-04-19] MEDS: ISOSORBIDE MONONITRATE 60 MG TABLET PO SCH (13:10)
[2022-04-19] MEDS: HEPARIN 5,000 UNIT/1 ML VIAL SUBCUT SCH (13:11)
[2022-04-19] MEDS: metroNIDAZOLE 500 MG TABLET PO SCH ×2 (13:11→15:58)
[2022-04-19] MEDS: METOPROLOL SUCCINATE XL 100 MG TABLET PO SCH (13:32)
[2022-04-19 16:23] VITALS: BP 100/71
== END 2022-04-19 19:38 | disposition home or self-care (01) | DRG 291 ==
LOC: EDUNIT# → N.EDINP 20:46 → N.ED 20:46 → N.5E 04-13 01:25 → SUATTDRO 04-13 12:19
PROVIDERS: ADMIT Internal Medicine; ATTEND Internal Medicine

== ENCOUNTER 2022-06-11 22:42 | Observation (INO) ==
[2022-06-11] MEDS ORDERED: MORPHINE 2 MG/1 ML SYRINGE IV STA (22:51)
[2022-06-12 00:27] LABS: Basophils # 0.1 10*3/uL (0.0-0.2); Basophils % 1.8 % (0.0-0.8); Eosinophils # 0.4 10*3/uL (0.0-0.87); Hematocrit 37.7 VOL% (42.0-52.0); Hemoglobin 11.4 GM/DL (14.0-18.0); Immature Granulocytes % 0.2 %; Immature Granulocytes Absolute 0.01 #; Lymphocytes # 1.5 10*3/uL (1.4-4.0); Lymphocytes % 28.5 % (21.2-54.2); Mean Corpuscular HGB Conc 30.2 GM/DL (32-36); Mean Corpuscular Volume 84.7 FL (87-102); Mean Platelet Volume 10.2 FL (9.6-12.0); Monocytes # 0.5 10*3/uL (0.11-0.8); Monocytes % 9.6 % (1.7-12.7); Neutrophils % 52.9 % (38.7-73.9); Platelet Count 91 T/CUMM (130-400); Red Blood Count 4.45 MC/CUMM (3.8-5.5); Red Cell Distribution Width 18.4 % (9.3-17.3); White Blood Count 5.1 T/CUMM (4-12)
[2022-06-12 00:48] LABS: Albumin 2.9 G/DL (3.4-5.0); Bilirubin,Total 0.8 MG/DL (0.20-1.00); Calcium 8.6 MG/DL (8.5-10.1); Osmolality,Calculated 274.1 MOS/KG (273-304); Potassium 3.7 MMOL/L (3.5-5.1); Total Protein 8.1 G/DL (6.4-8.2)
[2022-06-12] MEDS ORDERED: ACETAMINOPHEN 325 MG TABLET PO PRN (01:12)
[2022-06-12] MEDS ORDERED: GLUCAGON 1 MG VIAL IM PRN (01:12)
[2022-06-12] MEDS ORDERED: hydrALAZINE 20 MG/1 ML VIAL IV PRN (01:12)
[2022-06-12] MEDS ORDERED: DEXTROSE 10% 250 ML BAG IV PRN (01:12)
[2022-06-12] MEDS ORDERED: SIMETHICONE CHEW 125 MG TABLET PO PRN (01:12)
[2022-06-12 01:13] LABS: Platelet Estimate Decreased
[2022-06-12] MEDS: HYDROmorphone 1 MG/1 ML SYRINGE IV PRN ×5 (04:25→22:45)
[2022-06-12] MEDS: ALBUTEROL 2.5 MG/3 ML NEB RESP TX SCH ×3 (07:50→19:45)
[2022-06-12 08:17] LABS: INR 1.2; PT Patient Result 12.7 SECS (10.1-12.1)
[2022-06-12] MEDS: DOCUSATE SODIUM 100 MG CAPSULE PO SCH ×2 (08:34→20:45)
[2022-06-12] MEDS: HEPARIN 5,000 UNIT/1 ML VIAL SUBCUT SCH ×2 (08:34→20:49)
[2022-06-12] MEDS ORDERED: ALBUMIN 25% 12.5 GM/50 ML VIAL IV PRN (09:31)
[2022-06-12] MEDS ORDERED: TISSUE ADHESIVE 1 EACH APPLICATOR TOP ONE (09:54)
[2022-06-12] MEDS ORDERED: HEPARIN 10,000 UNIT/10 ML VIAL IV ONE (14:00)
[2022-06-13] MEDS: ALBUTEROL 2.5 MG/3 ML NEB RESP TX SCH ×3 (01:15→14:03)
[2022-06-13] MEDS: HYDROmorphone 1 MG/1 ML SYRINGE IV PRN ×2 (04:33→08:31)
[2022-06-13 07:19] LABS: Basophils # 0.1 10*3/uL (0.0-0.2); Basophils % 1.1 % (0.0-0.8); Eosinophils # 0.4 10*3/uL (0.0-0.87); Hematocrit 33.5 VOL% (42.0-52.0); Hemoglobin 10.1 GM/DL (14.0-18.0); Immature Granulocytes % 0.2 %; Immature Granulocytes Absolute 0.01 #; Lymphocytes # 0.9 10*3/uL (1.4-4.0); Lymphocytes % 21.2 % (21.2-54.2); Mean Corpuscular HGB Conc 30.1 GM/DL (32-36); Mean Corpuscular Volume 84.6 FL (87-102); Mean Platelet Volume 10.9 FL (9.6-12.0); Monocytes # 0.6 10*3/uL (0.11-0.8); Monocytes % 13.9 % (1.7-12.7); Neutrophils % 55.6 % (38.7-73.9); Red Blood Count 3.96 MC/CUMM (3.8-5.5); Red Cell Distribution Width 17.9 % (9.3-17.3); White Blood Count 4.4 T/CUMM (4-12)
[2022-06-13 07:20] LABS: Platelet Count 72 T/CUMM (130-400)
[2022-06-13 07:35] LABS: Calcium 8.1 MG/DL (8.5-10.1); Osmolality,Calculated 273.8 MOS/KG (273-304)
[2022-06-13 07:40] LABS: Hypochromia 1+; Microcytosis 1+; Platelet Estimate Decreased
[2022-06-13] MEDS: DOCUSATE SODIUM 100 MG CAPSULE PO SCH (08:26)
[2022-06-13] MEDS: HEPARIN 5,000 UNIT/1 ML VIAL SUBCUT SCH (08:31)
[2022-06-13] MEDS: DICYCLOMINE 10 MG CAPSULE PO SCH ×2 (09:45→15:09)
[2022-06-13 15:30] VITALS: BP 104/73
== END 2022-06-13 16:30 | disposition home or self-care (01) ==
LOC: EDUNIT# → EDBD → N.EDINP 22:42 → N.ED 22:42 → N.3E 06-12 03:34
PROVIDERS: ADMIT Internal Medicine; ATTEND Internal Medicine

== ENCOUNTER 2022-11-25 06:10 | Inpatient (IN) ==
[2022-11-25] MEDS ORDERED: HYDROmorphone 1 MG/1 ML SYRINGE IV STA (07:16)
[2022-11-25] MEDS ORDERED: PROMETHAZINE 25 MG/1 ML VIAL IV STA (07:19)
[2022-11-25] MEDS ORDERED: diphenhydrAMINE 50 MG/1 ML VIAL IV STA ×2 (07:27→09:40)
[2022-11-25] MEDS ORDERED: methylPREDNISolone SOD SUC 125 MG/2 ML VIAL IV STA (07:27)
[2022-11-25 08:25] LABS: Basophils # 0.1 10*3/uL (0.0-0.2); Basophils % 1.8 % (0.0-0.8); Eosinophils # 0.5 10*3/uL (0.0-0.87); Eosinophils % 13.2 % (0.00-10.9); Hematocrit 31.5 VOL% (42.0-52.0); Hemoglobin 9.5 GM/DL (14.0-18.0); Immature Granulocytes % 0.3 %; Immature Granulocytes Absolute 0.01 #; Lymphocytes # 1.1 10*3/uL (1.4-4.0); Lymphocytes % 28.9 % (21.2-54.2); Mean Corpuscular HGB Conc 30.2 GM/DL (32-36); Mean Corpuscular Volume 82.2 FL (87-102); Mean Platelet Volume 9.6 FL (9.6-12.0); Monocytes # 0.5 10*3/uL (0.11-0.8); Monocytes % 12.2 % (1.7-12.7); Neutrophils % 43.6 % (38.7-73.9); Platelet Count 112 T/CUMM (130-400); Red Blood Count 3.83 MC/CUMM (3.8-5.5); Red Cell Distribution Width 17.2 % (9.3-17.3); White Blood Count 3.94 T/CUMM (4-12)
[2022-11-25 08:52] LABS: Eosinophils 15 % (0-10); Lymphocytes 27 % (20-55); Total Cells Counted 100
[2022-11-25 08:53] LABS: Hypochromia Slight; Microcytosis Slight
[2022-11-25 09:09] LABS: Alanine Aminotransferase < 9 U/L (16-61); Albumin 2.8 G/DL (3.4-5.0); Alkaline Phosphatase 198 U/L (45-117); Aspartate Amino Transferase 27 U/L (0-37); Blood Urea Nitrogen 40 MG/DL (7-18); Calcium 8.9 MG/DL (8.5-10.1); Carbon Dioxide 25 MMOL/L (21-32); Chloride 97 MMOL/L (98-107); Glucose 78 MG/DL (74-106); Osmolality,Calculated 276.2 MOS/KG (273-304); Potassium 3.7 MMOL/L (3.5-5.1); Sodium 134 MMOL/L (136-145); Total Protein 7.9 G/DL (6.4-8.2)
[2022-11-25] MEDS ORDERED: LEVOFLOXACIN INJ 500 MG/100 ML PREMIX IV STA (09:34)
[2022-11-25] MEDS ORDERED: CLINDAMYCIN INJ 900 MG/50 ML PREMIX IV STA (09:34)
[2022-11-25] MEDS ORDERED: LORazepam 2 MG/1 ML VIAL IV STA (10:46)
[2022-11-25] MEDS ORDERED: LORazepam 2 MG/1 ML VIAL ONE (10:48)
[2022-11-25 13:34] LABS: Arterial Base Excess iSTAT -1 MMOL/L (-2.5-2.5); Arterial Bicarbonate iSTAT 24.4 MMOL/L (20-26); Arterial O2 Saturation iSTAT 100 % (95-100); Arterial PCO2 iSTAT 41 MM HG (35-48); Arterial PO2 iSTAT 274 MM HG (80-95); Arterial Total CO2 iSTAT 26 MMO/L (23-27); Arterial pH iSTAT 7.382 (7.35-7.45)
[2022-11-25 13:37] LABS: INR 1.2; PT Patient Result 12.9 SECS (10.1-12.1); Partial Thromboplastin Time 33.9 SECS (23.7-32.9)
[2022-11-25] MEDS ORDERED: DIGOXIN 0.5 MG/2 ML AMP IV ONE (14:48)
[2022-11-25] MEDS: DIGOXIN 0.5 MG/2 ML AMP IV SCH (22:16)
[2022-11-26] MEDS: MORPHINE 2 MG/1 ML SYRINGE IV PRN ×3 (00:05→21:09)
[2022-11-26] MEDS: DIGOXIN 0.5 MG/2 ML AMP IV SCH (03:03)
[2022-11-26 09:41] LABS: Basophils % 0.3 % (0.0-0.8); Hematocrit 26.5 VOL% (42.0-52.0); Hemoglobin 8.4 GM/DL (14.0-18.0); Immature Granulocytes % 0.5 %; Immature Granulocytes Absolute 0.02 #; Lymphocytes # 0.7 10*3/uL (1.4-4.0); Lymphocytes % 17.2 % (21.2-54.2); Mean Corpuscular HGB Conc 31.7 GM/DL (32-36); Mean Corpuscular Volume 80.1 FL (87-102); Mean Platelet Volume 9.8 FL (9.6-12.0); Monocytes # 0.5 10*3/uL (0.11-0.8); Monocytes % 12.7 % (1.7-12.7); Neutrophils % 69.3 % (38.7-73.9); Platelet Count 108 T/CUMM (130-400); Red Blood Count 3.31 MC/CUMM (3.8-5.5); Red Cell Distribution Width 16.8 % (9.3-17.3); White Blood Count 3.95 T/CUMM (4-12)
[2022-11-26 10:09] LABS: Albumin 2.6 G/DL (3.4-5.0); Bilirubin,Total 0.6 MG/DL (0.20-1.00); Calcium 8.1 MG/DL (8.5-10.1); Osmolality,Calculated 275.4 MOS/KG (273-304); Potassium 3.7 MMOL/L (3.5-5.1); Total Protein 6.8 G/DL (6.4-8.2)
[2022-11-26] MEDS: PROMETHAZINE 25 MG/1 ML VIAL IM PRN (11:58)
[2022-11-26] MEDS: CIPROFLOXACIN INJ 400 MG/200 ML PREMIX IV SCH (12:52)
[2022-11-26] MEDS: METOPROLOL SUCCINATE XL 100 MG TABLET PO SCH ×2 (12:53→20:26)
[2022-11-26] MEDS: ASPIRIN EC 81 MG TABLET PO SCH (12:53)
[2022-11-27] MEDS: CIPROFLOXACIN INJ 400 MG/200 ML PREMIX IV SCH ×2 (02:56→20:47)
[2022-11-27] MEDS: MORPHINE 2 MG/1 ML SYRINGE IV PRN ×3 (04:45→17:55)
[2022-11-27 05:06] LABS: Basophils % 0.8 % (0.0-0.8); Eosinophils # 0.1 10*3/uL (0.0-0.87); Eosinophils % 2.2 % (0.00-10.9); Hematocrit 30.4 VOL% (42.0-52.0); Hemoglobin 9.5 GM/DL (14.0-18.0); Immature Granulocytes % 0.3 %; Immature Granulocytes Absolute 0.01 #; Lymphocytes % 26.5 % (21.2-54.2); Mean Corpuscular HGB Conc 31.3 GM/DL (32-36); Mean Corpuscular Volume 82.6 FL (87-102); Mean Platelet Volume 9.7 FL (9.6-12.0); Monocytes # 0.5 10*3/uL (0.11-0.8); Monocytes % 12.7 % (1.7-12.7); Neutrophils % 57.5 % (38.7-73.9); Platelet Count 114 T/CUMM (130-400); Red Blood Count 3.68 MC/CUMM (3.8-5.5); Red Cell Distribution Width 16.8 % (9.3-17.3); White Blood Count 3.62 T/CUMM (4-12)
[2022-11-27 05:25] LABS: Alanine Aminotransferase < 9 U/L (16-61); Albumin 2.6 G/DL (3.4-5.0); Alkaline Phosphatase 162 U/L (45-117); Aspartate Amino Transferase 22 U/L (0-37); Blood Urea Nitrogen 34 MG/DL (7-18); Calcium 8.5 MG/DL (8.5-10.1); Carbon Dioxide 24 MMOL/L (21-32); Chloride 99 MMOL/L (98-107); Glucose 108 MG/DL (74-106); Osmolality,Calculated 276.2 MOS/KG (273-304); Potassium 3.4 MMOL/L (3.5-5.1); Sodium 134 MMOL/L (136-145); Total Protein 7.2 G/DL (6.4-8.2)
[2022-11-27] MEDS: METOPROLOL SUCCINATE XL 100 MG TABLET PO SCH ×2 (09:08→20:42)
[2022-11-27] MEDS: ASPIRIN EC 81 MG TABLET PO SCH (09:08)
[2022-11-27] MEDS ORDERED: ALBUMIN 25% 12.5 GM/50 ML VIAL IV ONE (15:40)
[2022-11-27] MEDS ORDERED: TISSUE ADHESIVE 1 EACH APPLICATOR TOP ONE (15:59)
[2022-11-27 17:03] LABS: Neutrophils,Peritoneal Fluid 8 %; RBC,Peritoneal Fluid 1407 T/CUMM
[2022-11-27] MEDS: PROMETHAZINE 25 MG/1 ML VIAL IM PRN (20:51)
[2022-11-28 09:39] LABS: Basophils % 0.6 % (0.0-0.8); Eosinophils # 0.1 10*3/uL (0.0-0.87); Eosinophils % 3.4 % (0.00-10.9); Hematocrit 30.1 VOL% (42.0-52.0); Hemoglobin 9.2 GM/DL (14.0-18.0); Immature Granulocytes % 0.3 %; Immature Granulocytes Absolute 0.01 #; Lymphocytes # 0.8 10*3/uL (1.4-4.0); Lymphocytes % 24.9 % (21.2-54.2); Mean Corpuscular HGB Conc 30.6 GM/DL (32-36); Mean Corpuscular Volume 83.1 FL (87-102); Monocytes # 0.4 10*3/uL (0.11-0.8); Neutrophils % 58.8 % (38.7-73.9); Platelet Count 105 T/CUMM (130-400); Red Blood Count 3.62 MC/CUMM (3.8-5.5); Red Cell Distribution Width 16.8 % (9.3-17.3); White Blood Count 3.25 T/CUMM (4-12)
[2022-11-28 09:55] LABS: Alanine Aminotransferase < 6 U/L (16-61); Alkaline Phosphatase 128 U/L (45-117); Aspartate Amino Transferase 13 U/L (0-37); Blood Urea Nitrogen 41 MG/DL (7-18); Calcium 7.4 MG/DL (8.5-10.1); Carbon Dioxide 26 MMOL/L (21-32); Chloride 101 MMOL/L (98-107); Glucose 125 MG/DL (74-106); Osmolality,Calculated 283.8 MOS/KG (273-304); Potassium 3.4 MMOL/L (3.5-5.1); Sodium 137 MMOL/L (136-145); Total Protein 5.6 G/DL (6.4-8.2)
[2022-11-28] MEDS: ASPIRIN EC 81 MG TABLET PO SCH (10:26)
[2022-11-28] MEDS: METOPROLOL SUCCINATE XL 100 MG TABLET PO SCH (10:30)
[2022-11-28] MEDS ORDERED: POTASSIUM CHLORIDE 10 MEQ TABLET PO ONE (14:35)
[2022-11-28] MEDS: CIPROFLOXACIN INJ 400 MG/200 ML PREMIX IV SCH (15:00)
[2022-11-28 19:42] VITALS: BP 98/52
== END 2022-11-28 18:14 | disposition home or self-care (01) | DRG 371 ==
LOC: N.ED 06:10 → SUATTDRO 11:18 → N.EDINP 11:18 → N.TELES 19:17
PROVIDERS: ADMIT Internal Medicine; ATTEND Internal Medicine